=== PATIENT | male | born 1945 | race Two or more races ===

== ENCOUNTER 2024-05-26 16:40 | Inpatient (IN) | payer OTHER, MEDICAID ==
[~2024-05-26] VITALS: Ht 177.8 cm; Wt 60.7 kg
[2024-05-26 19:40] VITALS: BP 136/66; PULSE 122; RESP 30; TEMP 98.2; O2SAT 86
[2024-05-26 20:00] VITALS: BP 136/66; PULSE 122; RESP 26; TEMP 98.2; O2SAT 93
[2024-05-26] MEDS ORDERED: ONDANSETRON HCL 4 MG/2 ML VIAL IV PRN (22:30)
[2024-05-26] MEDS ORDERED: MORPHINE SULFATE INJ 2 MG/ml SYRG IV PRN ×2 (22:30)
[2024-05-26] MEDS ORDERED: NITROGLYCERIN 0.4 MG SL TAB SL PRN (22:30)
[2024-05-26] MEDS ORDERED: HYDROcodone-ACET 5/325MG TAB PO PRN (22:30)
[2024-05-26] MEDS ORDERED: VANCOMYCIN PER PHARMACY 0 MG IV SCH (22:45)
--- NOTE | 2024-05-26 22:45 | DVHINCON2 ---
Date of service: May 26, [address] Wolf Reason for Consultation ALOC History of Present Illness Mr Vallejo is a 78 years old gentleman with a history of diabetes, congestive heart failure, chronic kidney failure, left foot osteomyelitis, status post right BKA, the patient was brought to the [facility] on 05/18/2024 with a chief company of altered mental status, the patient was t ransferred to [facility] on 06/12/2024, likely for for care of his left foot osteomyelitis. At this time, he is awake, not oriented at all, he might have ongoing visual hallucination because he is having the arms in the air talking to himself [phone] no other [facility] UDS, 05/18/2024: Negative Urinalysis, 05/18/2024: Urine leukocyte esterase: 2+ WBC/HB/PLT/MCV, 05/18/24: 11.9/9.6/210/96.2 Potassium, 05/18/2024: 5.1 BUN/CR, 05/18/2024: 65/2.19 GFR, 05/18/2024: 31.17 Liver. function tests, 12/17/2023: Unremarkable CT head, 05/18/2024: Hypodense area involving the right high convexity frontal lobe and bilateral cerebellum which may represent area of in fact of unknown chronicity I do not see imaging reports of the left foot Past Medical History Diabetes, congestive heart failure, chronic kidney failure, left foot osteomyelitis, Past Surgical History Left 5th toe amputation, right BKA Family History Unobtainable Social History Unobtainable Current Medications Current Medications Medications (Trade) Dose Ordered Sig/Eagle Route PRN Reason Start Time Stop Time Status Last Admin Sodium Chloride (Saline Lock Ns) 10 ml Q8HR IV 05/27/24 06:00 UNV Acetaminophen/ Hydrocodone Bitart ([place] 5/325MG Tab) 1 tab Q4HP PRN PO MODERATE PAIN (4-6 PAIN SCALE) 05/26/24 22:30 UNV Ondansetron HCl (Zofran) 4 mg Q4HP PRN IV NAUSEA / VOMITING 05/26/24 22:30 UNV Acetaminophen (Tylenol Tablet) 650 mg Q6HP PRN PO PAIN SCALE 1-3 OR TEMP>100.4 05/26/24 22:30 UNV Morphine Sulfate 2 mg Q4HPRN PRN IV SEVERE PAIN (7-10 PAIN SCALE) 05/26/24 22:30 UNV Nitroglycerin (Ntrostat Sublingual) 0.4 mg Q5MINP PRN SL FOR CHEST PAIN 05/26/24 22:30 UNV Morphine Sulfate 2 mg Q30M PRN IV FOR CHEST PAIN 05/26/24 22:30 UNV Review of Systems Unobtainable Physical Exam GENERAL EXAM: General: the patient is well developed and nourished. No acute distress. HEENT: Normocephalic, neck is supple, no carotid bruits. No mass. RESPIRATORY: Normal respiratory effort with symmetrical lung expansion. Lungs clear to auscultation. CARDIOVASCULAR: Regular rate and rhythm with no murmurs. S1, S2. ABDOMEN: Soft, nontender, normal bowel sound Status post right BKA NEUROLOGICAL: MENTAL STATUS: HPI SPEECH, LANGUAGE, HIGHER CORTICAL FUNCTION: no aphasia or dysathria. CRANIAL NERVES: #2: Intact visual harrison to confrontation. #3,4,6: Pupils are equal, round and reactive. EOMs full and conjugate. No nystagmus. #5: Facial sensation intact in all three divisions bilaterally. Mandibular strength intact. #7: Facial muscles symmetrical and strength intact. #8: Hearing grossly normal to voice. #9,10: Deferred. #11: Deferred, but looks fine #12: Tongue midline. No fasciculations or atrophy. SENSATION: Sensation to touch and pinprick is normal. MOTOR: Normal tone in the upper and lower extremity. Normal muscle bulk. No fasciculations. No abnormal movements or posturing. Muscle strength of the major groups in the upper extremities is 5/5. Muscle strength of the major groups in the lower extremities is 5/5. REFLEXES: Deep tendon reflexes are symmetrical. No pathological reflexes. CEREBELLAR/COORDINATION: Deferred GAIT/STATION: deferred. Assessment Metabolic encephalopathy secondary to osteomyelitis Multiple strokes per CT brain scan Left foot osteomyelitis Plan/Recommendation Monitoring Supportive treatment Telemetry Lipitor profile GABBIE Carotid Doppler CT to the left foot MRI brain Aspirin 81 mg daily Lipitor 40 mg daily for now Haldol 2.5 mg IM Q 8 hours p.r.n. for agitation Podiatry consultation Progress: Poor This is a difficult a long consultation. I have discussed with his nurseblood This medical document was created using an electronic medical record system with [employer] dictation system. Although this document has been carefully reviewed, there may still be some phonetic and typographical errors. These areas are purely typographical due to imperfections of the software programs, and do not reflect any compromise in the patient's medical care. Plan discussed with: Other DALTON HARRISON MD May 26, 2024 22:45
--- NOTE | 2024-05-26 22:49 | DVHHPRES ---
History of Present Illness Resident Creating Document: ESTER CLARK RESIDENT History of Present Illness Yoni Tuttle, a 78-year-old male with a past medical history of congestive heart failure, diabetes, CKD, recurrent urinary tract infections, and right BKA, presents with a chief complaint of metabolic encephalopathy. The patient was transferred from [facility] and is currently experiencing an altered mental state. patient was brought to the [facility] on 05/18/2024 with a chief company of altered mental status, the patient was transferred to [facility] on 06/12/2024, likely for care of his left foot osteomyelitis. He is not talking and has an A&O X1. Pt has a history of left foot osteomyelitis, which was diagnosed at [facility]. The patient reports low oxygen saturation levels, ranging from 84 to 88, and is now on 3 liters of oxygen. He is breathing through his mouth, necessitating supp lemental oxygen through a simple mask. Past Medical History congestive heart failure, diabetes, CKD, recurrent urinary tract infections, and right BKA, Past Surgical History Rt BKA Review of Systems Review of Systems Unable to obtain as patient is altered mental status Allergies: Coded Allergies: NO KNOWN ALLERGIES (Unverified , 05/27/24) Medications Current Medications Medications Dose Ordered Sig/Eagle Route Start Time Stop Time Status Last Admin Dose Admin Sodium Chloride 10 ml Q8HR IV 05/27/24 06:00 UNV Acetaminophen/ Hydrocodone Bitart 1 tab Q4HP PRN PO 05/26/24 22:30 UNV Ondansetron HCl 4 mg Q4HP PRN IV 05/26/24 22:30 UNV Acetaminophen 650 mg Q6HP PRN PO 05/26/24 22:30 UNV Morphine Sulfate 2 mg Q4HPRN PRN IV 05/26/24 22:30 UNV Nitroglycerin 0.4 mg Q5MINP PRN SL 05/26/24 22:30 UNV Morphine Sulfate 2 mg Q30M PRN IV 05/26/24 22:30 UNV Cefepime HCl 50 ml @ 12.5 mls/hr DAILY IV 05/27/24 10:00 UNV Vancomycin HCl 0 ml @ 0 mls/hr UD IV 05/26/24 22:45 UNV Sodium Chloride 1,000 ml @ 60 mls/hr [id number] IV 05/26/24 22:45 UNV Enoxaparin Sodium 30 mg DAILY SC 05/27/24 10:00 UNV Atorvastatin Calcium 10 mg HS PO 05/27/24 22:00 UNV Exam Vital Signs - Vital Signs - Oxygen saturation: 84-88% - Patient on 3 liters of oxygen via simple mask Exam Physical Examination: GENERAL: Patient is restless and on supplemental oxygen. HEENT: EOMI, Moist mucous membranes. No scleral icterus. No cervical lymphadenopathy. LUNGS: Clear to auscultation bilaterally. No accessory muscle use. On supplemental oxygen CARDIOVASCULAR: Regular rate and rhythm. No murmur. No JVD. ABDOMEN: Soft, nontender and nondistended. No palpable masses. EXTREMITIES: No edema. Right leg below-knee amputation (BKA), left foot nonhealing ulcer SKIN: No rashes or lesions. Warm. NEUROLOGIC: Patient is confused, Alert and oriented X1 Assessment/Plan Assessment/Plan Assessment and Plan: # Metabolic encephalopathy secondary to possible osteomyelitis # Multiple strokes per CT brain scan - Continue monitoring mental status and neurological function - Neurology consult - Patient is confused, A&O x1 # Left foot osteomyelitis: - Continue cefepime 1 gram daily and vancomycin as per pharmacy - Ordered left foot CT - Podiatry consult for further evaluation and management - Diagnosed at [facility] # Acute respiratory failure: - Maintain patient on 3 liters of oxygen via simple mask - Ordered chest x-ray for further evaluation - O2 saturation was low (84-88%) # Congestive heart failure diastolic vs. systolic: - Will start Lasix 20 mg I/V after lab results and Chest xray - No edema noted - Ordered BNP and chest x-ray for further evaluation # Chronic kidney disease: - Monitor renal function and electrolytes - Follow up to evaluate for acute kidney injury # Diabetes mellitus type 2: - Manage with sliding scale insulin as needed - Monitor blood glucose levels regularly DVT prophylaxis: Lovenox SC 30 mg daily Goal of care discussed with RN, called patient's next of kin, did not receive the call, left voice message. Discussed with Dr. Rojas Plan discussed with: Other (RN) My Orders Orders - ESTER CLARK RESIDENT Procedure Category Date Status Time Admit ADMIT 05/26/24 Transmitted 22:22 Allergies LISANDRO 05/26/24 In Process 22:22 Code Status CODE 05/26/24 Transmitted 22:22 Sodium Chloride Lock PHA 05/27/24 Logged (Saline Lock Ns) 06:00 Hydrocodone-Acet PHA 05/26/24 Logged 5/325mg Tab ([place] 22:30 Ondansetron Hcl PHA 05/26/24 Logged (Zofran) 22:30 Complete Blood Count LAB 05/27/24 Verified 04:00 Comprehensive LAB 05/27/24 Verified Metabolic Panel 04:00 Npo (Nothing By DIET 05/27/24 Transmitted Mouth) Diet Breakfast Acetaminophen Tablet PHA 05/26/24 Logged (Tylenol Tablet) 22:30 Morphine Sulfate PHA 05/26/24 Logged Injection 22:30 Nitroglycerin PHA 05/26/24 Logged Sublingual (Ntrostat 22:30 Morphine Sulfate PHA 05/26/24 Logged Injection 22:30 Oxygen By Nasal RT 05/26/24 Transmitted Cannula 22:22 Stat Ekg For Chest [facility] 05/26/24 In Process Pain 22:22 Notify Md Of Changes [facility] 05/26/24 In Process From Base 22:22 Carbon Brushes Assembler For [facility] 05/26/24 In Process 24 Hours 22:22 Emergency Dysrhythmia [facility] 05/26/24 In Process Protocol 22:22 Rhythm Strips Once [facility] 05/26/24 In Process Every Shift 22:22 Urinalysis LAB 05/26/24 Uncollected 22:22 Vitamin D, 25-Hydroxy LAB 05/26/24 Logged 22:22 Vitamin B12 LAB 05/26/24 Logged 22:22 Lipid Panel LAB 05/26/24 Logged 22:22 Hemoglobin A1c LAB 05/26/24 Logged 22:22 Drug Screen LAB 05/26/24 Logged 22:22 Thyroid Stimulating LAB 05/26/24 Logged Hormone 22:22 PTPTT LAB 05/26/24 Logged 22:22 Complete Blood Count LAB 05/26/24 Logged 22:22 Comprehensive LAB 05/26/24 Logged Metabolic Panel 22:22 * Neurology Consult CONS 05/26/24 Transmitted 22:28 Cefepime 1gm/ 50ml PHA 05/27/24 Logged (Maxipime 1gm/50ml) 10:00 Vancomycin Per PHA 05/26/24 Logged Pharmacy 22:45 *Podiatry Consult CONS 05/26/24 Transmitted Musson(Dvmg) 22:32 Sodium Chloride 0.9% PHA 05/26/24 Logged 22:45 Enoxaparin Sodium PHA 05/27/24 Logged (Lovenox) 10:00 Atorvastatin (Lipitor) PHA 05/27/24 Logged 22:00 Chest Portable XY 05/26/24 Logged 22:32 Date of Service: May 26, 2024 Billing Provider: SANJAY ROJAS MD Common Visit Codes: [id number] INP/OBS CARE (HIGH) Secondary Visit Codes: [id number] CARE PLAN 30 MINUTES ESTER CLARK RESIDENT May 26, 2024 22:49 SANJAY ROJAS MD May 27, 2024 13:38
[2024-05-26] MEDS: ATORVASTATIN 20 MG TAB PO SCH (23:15)
[2024-05-26 23:27] LABS: Basophils # (auto) 0.1 10 ^3/uL (0-0.2); Basophils % (auto) 1.1 % (0.0-2.0); Eosinophils # (auto) 0 10 ^3/uL (0-0.8); Eosinophils % (auto) 0.2 % (0.0-7.0); Hematocrit 32.7 % (41.0-53.0); Hemoglobin 10.4 g/dL (13.5-17.5); Lymphocytes # (auto) 0.3 10 ^3/uL (0.4-5.4); Lymphocytes % (auto) 2.4 % (10.0-50.0); Mean Corpuscular Hemoglobin 30.1 pg (28.0-32.0); Mean Corpuscular Hgb Conc. 31.9 g/dL (32.0-36.0); Mean Corpuscular Volume 94.3 fL (80.0-100.0); Monocytes # (auto) 0.5 10 ^3/uL (0-1.3); Monocytes % (auto) 4.9 % (0.0-12.0); Neutrophils # (auto) 9.7 10 ^3/uL (1.6-8.6); Neutrophils % (auto) 91.4 % (37.0-80.0); Nucleated Red Blood Cells % 0.1 %; Platelet Count (auto) 234 10^3/uL (140-450); Red Blood Cells 3.47 10^6/uL (4.5-5.90); Red Cell Distribution Width 15.2 % (11.8-14.3); White Blood Cell 10.6 10^3/uL (4.4-10.8)
[2024-05-26 23:42] LABS: Alanine Aminotransferase 22 U/L (7-40); Albumin 3.4 g/dL (3.2-4.8); Alkaline Phosphatase 85 U/L (46-116); Anion Gap 13 (5-15); Aspartate Aminotransferase 18 U/L (13-40); BUN/Creatinine Ratio 17.5 (10.0-20.0); Blood Urea Nitrogen 50 mg/dL (9-23); Calcium 8.7 mg/dL (8.7-10.4); Carbon Dioxide 12 mmol/L (20-31); Chloride 115 mmol/L (98-107); Glucose 258 mg/dL (74-106); LDL Cholesterol 46 mg/dL (< 100); Potassium 5.1 mmol/L (3.5-5.1); Sodium 140 mmol/L (136-145); Triglycerides 129 mg/dL (< 150)
[2024-05-26 23:43] LABS: Bilirubin, Total 0.3 mg/dL (0.2-1.0); Cholesterol 102 mg/dL (< 200); HDL Cholesterol 32 mg/dL (40-59); Total Protein 6.9 g/dL (5.7-8.2)
[2024-05-26 23:47] LABS: INR 1.13 (0.9-1.15); Partial Thromboplastin Time 24.5 SEC (24.5-34.5); Prothrombin Time 11.9 sec (9.3-11.8)
[2024-05-27] VITALS (10 sets, daily range): BP systolic 97–141; BP diastolic 45–77; PULSE 81–124; RESP 18–26; TEMP 97.8–98.6; O2SAT 86–97
[2024-05-27] MEDS ORDERED: DEXTROSE (50%) 50ML SYRG IV PRN
[2024-05-27 00:22] LABS: Folate (Folic Acid) 28.3 ng/mL (>5.38)
--- NOTE | 2024-05-27 02:16 | DVH ---
US CAROTID DOPPLER CLINICAL INDICATION: cva TECHNIQUE: Multiple grayscale, color Doppler and spectral Doppler ultrasound images were obtained thr oughout both carotid systems. COMPARISON: None FINDINGS: RIGHT: Distal ICA is not visualized CCA PSV: 88 cm/s ECA PSV: 382 cm/s ICA PSV: 180 cm/s ICA EDV: 40 cm/s ICA/CCA Ratio: 2 Vertebral artery: Patent, antegrade flow. Grayscale images demonstrate calcified atherosclerotic plaque in the carotid bifurcation, internal ca rotid artery, and visualized external carotid artery. The distal internal carotid artery was not visu alized LEFT: CCA PSV: 59 cm/s ECA PSV: Not visualized ICA PSV: 96 cm/s ICA EDV: 17 cm/s ICA/CCA Ratio: 1.6 Vertebral artery: Not visualized Grayscale images demonstrate mild atherosclerotic plaque in the proximal internal carotid artery . Sp ectral analysis demonstrates no hemodynamically significant CCA or ICA stenosis. IMPRESSION: 1. There is 50-69% stenosis of the right proximal ICA by atherosclerotic plaque. 2. Greater than 70% stenosis of the right external carotid artery by atherosclerotic plaque. 3. No significant left common carotid or ICA stenosis
[2024-05-27] MEDS ORDERED: HYDROmorphone HCL 2 MG/ML VL/or syr IV PRN (04:30)
[2024-05-27 05:58] LABS: Urine Bacteria None Seen /hpf (None Seen)
[2024-05-27] MEDS: SODIUM CHLORIDE 0.9% 1,000 ML IV SCH (06:16)
[2024-05-27] MEDS: SODIUM CHLOR 0.9% PF (SALINE LOCK) 10ML VIAL/SYR IV SCH (06:16)
[2024-05-27 06:38] LABS: Amphetamine Screen, Urine Neg (NEGATIVE); Barbiturate Scree,Urine Neg (NEGATIVE); Benzodiazephine Screen, Urine Neg (NEGATIVE); Cannabinoid Screen, Urine Neg (NEGATIVE); Cocaine Screen, Urine Neg (NEGATIVE); Opiate Scree,Urine Neg (NEGATIVE); Phencyclidine Screen, Urine Neg (NEGATIVE)
[2024-05-27 06:49] LABS: Urine Blood 3+ /uL (Negative); Urine Clarity Ex.Turbid (Clear); Urine Color Light-Red (Yellow); Urine Protein, UAD 2+ (Negative); Urine Specific Gravity 1.013 (1.001-1.035); Urine Urobilinogen Normal (Negative); Urine WBC 306 /hpf (0 - 3); Urine pH 5.5 (5.0-9.0)
[2024-05-27] MEDS: InsuLIN REG 1unit/0.01ml Soln (100units/ml) SC SCH (06:57)
[2024-05-27] MEDS: ACCU-CHEK COMFORT CURVE STRIP VI SCH (07:01)
--- NOTE | 2024-05-27 07:02 | DVH ---
CHEST RADIOGRAPH Indication:SOB Technique: Single frontal view of the chest was obtained Comparison: None FINDINGS: Lines and Tubes: None Lungs: Extensive pulmonary edema. Pleura: No effusion. No pneumothorax. Cardiomediastinal contours: Unremarkable Bones: No acute osseous abnormality. IMPRESSION: Extensive pulmonary edema. Atypical viral pneumonia can not be excluded.
[2024-05-27 07:14] LABS: Alanine Aminotransferase 18 U/L (7-40); Albumin 3.2 g/dL (3.2-4.8); Alkaline Phosphatase 74 U/L (46-116); Anion Gap 14 (5-15); Aspartate Aminotransferase 27 U/L (13-40); BUN/Creatinine Ratio 20.1 (10.0-20.0); Bilirubin, Total 0.3 mg/dL (0.2-1.0); Blood Urea Nitrogen 57 mg/dL (9-23); Calcium 8.6 mg/dL (8.7-10.4); Carbon Dioxide 13 mmol/L (20-31); Chloride 114 mmol/L (98-107); Glucose 221 mg/dL (74-106); Potassium 5.1 mmol/L (3.5-5.1); Sodium 141 mmol/L (136-145); Total Protein 6.2 g/dL (5.7-8.2)
[2024-05-27 07:16] LABS: Basophils # (auto) 0 10 ^3/uL (0-0.2); Basophils % (auto) 0.2 % (0.0-2.0); Eosinophils # (auto) 0 10 ^3/uL (0-0.8); Hematocrit 30.1 % (41.0-53.0); Hemoglobin 9.6 g/dL (13.5-17.5); Lymphocytes # (auto) 0.3 10 ^3/uL (0.4-5.4); Lymphocytes % (auto) 2.9 % (10.0-50.0); Mean Corpuscular Hgb Conc. 31.8 g/dL (32.0-36.0); Mean Corpuscular Volume 94.3 fL (80.0-100.0); Monocytes # (auto) 0.6 10 ^3/uL (0-1.3); Monocytes % (auto) 6.1 % (0.0-12.0); Neutrophils # (auto) 9.6 10 ^3/uL (1.6-8.6); Neutrophils % (auto) 90.8 % (37.0-80.0); Platelet Count (auto) 180 10^3/uL (140-450); Red Blood Cells 3.19 10^6/uL (4.5-5.90); Red Cell Distribution Width 15.1 % (11.8-14.3); White Blood Cell 10.5 10^3/uL (4.4-10.8)
[2024-05-27] MEDS: VANCOMYCIN 1.25GM/250ML 250 ML IV ONE (07:43)
--- NOTE | 2024-05-27 08:40 | DVHPNRES ---
Progress Note Date Seen: May 27, 2024 Resident Creating Document: HONG REBOLLAR RESIDENT Has the PT tested + for MRSA If YES, has PT been informed?: No Medical Necessity Reason Pt with a Central, PICC or Fol: Yes The following are medically ne: Wilson Catheter Medical Necessity Reason Midline, peripheral vascular access Subjective Review of Systems Saw the patient at bedside, several times throughout the day. Patient remained combative, agitated, disoriented, can not make meaningful conversation. Mittens in hand. Patient reports: No new complaints Changes from previous H/P or p: No Changes Review of Systems: HEENT:Normal (Oral mucosa dry), CVS:Normal, RESPIRATORY:Abnormal (On 4-6 L of nasal cannula oxygen, basal rales and crackles, diminished air entry.), GI:Normal (BS positive, negative for tenderness, guarding), :Normal (On Wilson's catheter), MSK:Abnormal (Right BKA clean stump noted. Left foot wound noted dressing clean.), NEURO:Abnormal (Alert, patient is disoriented most of the times patient could not answer any questions. In the afternoon patient is more awake GCS 10. Still not able to protect airways. Remained NPO. Continuous rehabilitation.) Objective vital signs Vital Sign Date Time Temp Pulse Resp B/P (MAP) Pulse Ox O2 Delivery O2 Flow Rate FiO2 05/27/24 01:00 98.3 124 24 118/53 (74) 92 98.3 05/27/24 00:58 Nasal Cannula* 3 32 Total Intake and Output 05/26/24 05/26/24 05/27/24 14:59 22:59 06:59 Output Total 1500 ml Balance -1500 ml medications Current Medications Medications Dose Ordered Sig/Eagle Route Start Time Stop Time Status Last Admin Dose Admin Sodium Chloride 10 ml Q8HR IV 05/27/24 06:00 05/27/24 06:16 10 ML Acetaminophen/ Hydrocodone Bitart 1 tab Q4HP PRN PO 05/26/24 22:30 Ondansetron HCl 4 mg Q4HP PRN IV 05/26/24 22:30 Acetaminophen 650 mg Q6HP PRN PO 05/26/24 22:30 Nitroglycerin 0.4 mg Q5MINP PRN SL 05/26/24 22:30 Morphine Sulfate 2 mg Q30M PRN IV 05/26/24 22:30 Cefepime HCl 50 ml @ 12.5 mls/hr DAILY IV 05/27/24 10:00 Vancomycin HCl 0 ml @ 0 mls/hr UD IV 05/26/24 22:45 UNV Enoxaparin Sodium 30 mg DAILY SC 05/27/24 10:00 Atorvastatin Calcium 40 mg HS PO 05/26/24 23:15 Lorazepam 1 mg ONCE PRN IV 05/26/24 23:15 Aspirin 81 mg DAILY PO 05/27/24 10:00 Haloperidol Lactate 2.5 mg Q8HP PRN IM 05/26/24 23:15 Diagnostic Test (Pha) 1 strip ACHS 05/27/24 07:00 05/27/24 07:01 1 STRIP Insulin Human Regular ACHS SC 05/27/24 07:00 05/27/24 06:57 4 UNITS Dextrose 50 ml UD PRN IV 05/27/24 00:00 Hydromorphone HCl 2 mg Q4HP PRN IV 05/27/24 04:30 Furosemide 40 mg DAILY IV 05/27/24 10:00 Examination: GENERAL:Abnormal (Overlook 6, in distress, disoriented occasionally opening eyes), HEENT:Normal, NECK:Normal (JVD known elevated), LUNGS:Abnormal (On nasal cannula oxygen, diminished bilateral air entry, crackles), CVS:Normal, ABDOMEN:Normal, MSK:Abnormal (Right below-knee amputation, left foot wound), SKIN:Abnormal (Wound), NEURO:Abnormal (Opens eyes to voice, to pain stimulus patient is reactive, incoherent talk ? Aphasia. Can not complete full neurological assessment as patient is not able to follow instructions.) laboratory and microbiology Laboratory Tests 05/27/24 05:59 Test 05/27/24 05:59 Range/Units Serum Glucose 221 H 74-106 mg/dL Labs and/or images reviewed: Labs reviewed by me, Image(s) reviewed by me Problem List/Assessment/Plan Problem List/Assessment/Plan Hospital Course: Mr. Vallejo, a 78-year-old male with a history of heart failure with a reduced ejection fraction of 25%, uncontrolled diabetes mellitus, CKD, recurrent UTIs, recurrent skin and soft tissue infection and right BKA, presents with metabolic encephalopathy and altered mental status, requiring supplemental oxygen and care for left foot osteomyelitis. Initially patient was admitted in [facility] initially 05/18/2024, was found for sepsis and initial treatment was done with IV antibiotics and patient was transferred to [facility] for optimum Care and close follow up with the Podiatry team. # metabolic vs toxic encephalopathy vs mixed: Alert but oriented, over the day patient was mostly sedated, agitated and combative. likely secondary due to infection, mixed with delirium and multi system disease. Continue as needed Haldol, mittens, sitter, recurrent reorientation and conservative measures. This is p.m. patient's GCS around 10 but still has a very high chance of aspiration. Continue delirium precaution aspiration precaution. Patient was on cefepime and vancomycin in previous hospitalization. Can not rule out toxic effects of cefepime. We will change to meropenem and vancomycin for now. # Multiple strokes prior CT brain scan: Prior stroke history, hypodense areas involving right high convexity frontal lobe and bilateral cerebellum with infarct of unknown chronicity. Patient is confused alert but oriented to self only. Difficult to assess neurological function. Vitals more or less stable. Appreciate Neurology input. When possible MRI with appropriate IV for further evaluation. # possible aspiration pneumonia: Patient remained altered mental status for prolonged time,un attended, remains by himself at home, possible aspiration, basal crackles, rales suggestive yet not conclusive. Close follow up aspiration precaution, head and 45 degree elevation. Secretion management And interval follow up. # Acute hypoxic respiratory failure , likely due to above , complicated with congestive heart failure: TSH WNL, negative lactate, BNP of 1347, elevated, although fluid status intravascularly dry needing IV fluid. status post IV Lasix. Could be emerging pulmonary edema likely due to low urine output. Close cautious fluid management. Sputum culture, COVID, flu pending. # right external carotid artery greater than 70% stenosis: All the clinical significance undetermined. Collaterals intact. # MARYANA due to VMN: developing acute renal failure elevating creatinine: BUN rising, check input output closely. Declining urinary function. We will do nephrology consult as needed. # questionable CKD: stage undetermined, given longstanding diabetes. No known baseline. # Left foot osteomyelitis with overlying skin and soft tissue infection: imaging, CT, previous MRI and imaging detailed evaluation noted high possibility of osteomyelitis, podiatry on board: Appreciate input, we will further input with stabilization of patient's vitals we will consider early source control with pending amputation when possible. Extremity arterial study satisfactory. For now we will continue antibiotics, pending wound culture. Previously known left 5th toe amputation due to same. # Likely UTI, could be hospital-acquired, From recent hospitalization: leukocyte esterase 3+, recent hospitalization, RBC 2720, WBC 306, blood 3+ negative nitrites: Urine culture to follow , continue broad-spectrum antibiotics. # Sepsis secondary due to above: elevated heart rate, elevated white count with predominant neutrophilia, Along with source of infection likely pointing towards sepsis. Careful consideration of sepsis dose bolus along with careful fluid management. Drawn antibiotics to continue. Blood culture pending. Pending source control as soon as possible. MRSA screen negative. Lactic negative. # anemia of chronic disease: Likely due to CKD/multifactorial, poor nutrition: Daily CBC, transfusion threshold 7. # Diabetes mellitus well controlled, 6.4 HbA1c: patient on NPO, target BG 140- 180 mg per dL. # DVT prophylaxis: significant Britany score, subcutaneous Lovenox to continue for now for prophylactic dose. close follow up with CBC and platelet count. # Diet: NPO for now, aspiration precautions Case discussed with Dr. Nascimento. Barriers to discharge: Patient lives by himself, medically not stable. Aggressive management needed. Poor prognosis due to multiorgan failure with advanced age and comparatively poor cardiac reserve. If patient continues to decline or unable to improve, we will consider further goals of care discussion with the next kin. Code status: Power of securities attorney, next kin Madhu Wright discussed over phone . Complex patient care discussion needed total 39 minutes. so far patient is modified code status with DNR/do not resuscitate along with intubation trial. Critical patient critical care plan upgraded to TIGRE status. Detailed sign-out given to overnight on-call senior resident and nursing team. Plan discussed with: Patient, Other (Next kin, who mentioned he can not visit the patient but can talk over phone as he does not have money for transport. Currently he is visiting [place] but [place] Laboratory Results Laboratory Tests 05/27/24 05:59 Chemistry Test 05/26/24 23:15 05/27/24 05:59 Albumin 3.4 g/dL (3.2-4.8) 3.2 g/dL (3.2-4.8) Calcium Level 8.7 mg/dL (8.7-10.4) 8.6 mg/dL (8.7-10.4) L Total Protein 6.9 g/dL (5.7-8.2) 6.2 g/dL (5.7-8.2) Coagulation Test 05/26/24 23:15 Prothrombin Time 11.9 sec (9.3-11.8) H Prothrombin Time INR 1.13 (0.9-1.15) Activated Partial Thromboplast Time 24.5 SEC (24.5-34.5) Lipid panel Test 05/26/24 23:15 Cholesterol Level 102 mg/dL (< 200) HDL Cholesterol 32 mg/dL (40-59) L Triglycerides Level 129 mg/dL (< 150) Cardiac Markers Test 05/26/24 23:15 B-Type Natriuretic Peptide 1347.78 pg/mL (0-100) LFT Test 05/26/24 23:15 05/27/24 05:59 Alanine Aminotransferase (ALT) 22 U/L (7-40) 18 U/L (7-40) Alkaline Phosphatase 85 U/L (46-116) 74 U/L (46-116) Aspartate Amino Transferase (AST) 18 U/L (13-40) 27 U/L (13-40) Total Bilirubin 0.3 mg/dL (0.2-1.0) 0.3 mg/dL (0.2-1.0) HgA1c, TSH Test 05/26/24 23:15 Hemoglobin A1c 6.4 % A1C (<5.7) H Thyroid Stimulating Hormone (TSH) 1.70 uIU/mL (0.55-4.78) Urinalysis Test 05/27/24 05:00 Urine Color Light-red (Yellow) Urine Clarity Ex.turbid (Clear) Urine pH 5.5 (5.0-9.0) Urine Specific [place] 1.013 (1.001-1.035) Urine Protein 2+ (Negative) H Urine Ketones Trace (Negative) Urine Blood 3+ /uL (Negative) H Urine Nitrite Negative (Negative) Urine Bilirubin Negative (Negative) Urine Urobilinogen Normal mg/dL (Negative) Urine Leukocyte Esterase 3+ /uL (Negative) Urine RBC 2720 /hpf (0 - 3) Urine WBC 306 /hpf (0 - 3) Urine Squamous Epithelial Cells None seen /hpf (<5) Urine Bacteria None seen /hpf (None Seen) Urine Glucose 1+ mg/dL (Normal) H Date of Service: May 27, 2024 Billing Provider: CHARITY NASCIMENTO MD Common Visit Codes: PROCEDURE ONLY Coding Comment Comment Attending attestation Please see my separate note for complete attestation HONG REBOLLAR RESIDENT May 27, 2024 08:40 CHARITY NASCIMENTO MD May 27, 2024 20:59
[2024-05-27] MEDS: HALOPERIDOL LACTATE 5 MG/ML INJ VIAL IM PRN (09:40)
[2024-05-27] MEDS: FUROSEMIDE 40 MG/4 ML VIAL IV SCH (09:40)
[2024-05-27] MEDS: ENOXAPARIN SOD 30 MG/0.3 ML SYRINGE SC SCH (09:41)
[2024-05-27] MEDS: ASPirin 81 mg TAB PO SCH (10:00)
[2024-05-27] MEDS ORDERED: CEFEPIME 1GM/ 50ML 50 ML IV SCH (10:00)
--- NOTE | 2024-05-27 10:44 | DVHPN2 ---
Progress Note - Dictate Date Seen: May 27, 2024 Medical Necessity Reason Pt with a Central, PICC or Fol: Yes The following are medically ne: Wilson Catheter Subjective Mr Vallejo is a 78 years old gentleman with a history of diabetes, congestive heart failure, chronic kidney failure, left foot osteomyelitis, status post right BKA, the patient was brought to the [facility] on 05/18/2024 with a chief company of altered mental status, the patient was transferred to [facility] on 06/12/2024, likely for for care of his left foot osteomyelitis. I have seen examined the patient, talked to his nurse and sitter, the patient is sedated, but still awake, he still talk to himself a little bit, he moves the arms and leg intermittently, he can not tell his name [facility] [place]DS, 05/18/2024: Negative Urinalysis, 05/18/2024: Urine leukocyte esterase: 2+ WBC/HB/PLT/MCV, 05/18/24: 11.9/9.6/210/96.2 Potassium, 05/18/2024: 5.1 BUN/CR, 05/18/2024: 65/2.19 GFR, 05/18/2024: 31.17 Liver. function tests, 12/17/2023: Unremarkable CT head, 05/18/2024: Hypodense area involving the right high convexity frontal lobe and bilateral cerebellum which may represent area of in fact of unknown chronicity I do not see imaging reports of the left foot Urinalysis, 05/27/2024: WBC: 306, urine leukocyte esterase: 3+ UDS, 05/27/2024: Negative WBC/HB/PLT/MCV, 05/27/2024: 10.5/9.6/180/94.3 BUN/CR, 05/27/2024: 57/2.83 HCO3, 05/27/2024: 13 Liver function tests, 05/27/2024: Unremarkable TG/HDL/LDL/HDL, 05/26/2024: 109/102/46/32 Vitamin B12, 05/2024: 1314 Folic acid, 05/2024: 28.3 TSH, 05/2024: 1.7 Carotid Doppler, 05/27/2024: 1. There is 50-69% stenosis of the right proximal ICA by atherosclerotic plaque. 2. Greater than 70% stenosis of the right external carotid artery by atherosclerotic plaque. 3. No significant left common carotid or ICA stenosis vital signs Vital Sign Date Time Temp Pulse Resp B/P (MAP) Pulse Ox O2 Delivery O2 Flow Rate FiO2 05/27/24 09:40 107/50 05/27/24 09:00 98.6 115 19 92 98.6 05/27/24 00:58 Nasal Cannula* 3 32 Total Intake and Output 05/26/24 05/26/24 05/27/24 15:00 23:00 07:00 Output Total 1500 ml Balance -1500 ml medications Current Medications Medications Dose Ordered Sig/Eagle Route Start Time Stop Time Status Last Admin Dose Admin Sodium Chloride 10 ml Q8HR IV 05/27/24 06:00 05/27/24 06:16 10 ML Acetaminophen/ Hydrocodone Bitart 1 tab Q4HP PRN PO 05/26/24 22:30 Ondansetron HCl 4 mg Q4HP PRN IV 05/26/24 22:30 Acetaminophen 650 mg Q6HP PRN PO 05/26/24 22:30 Nitroglycerin 0.4 mg Q5MINP PRN SL 05/26/24 22:30 Morphine Sulfate 2 mg Q30M PRN IV 05/26/24 22:30 Cefepime HCl 50 ml @ 12.5 mls/hr DAILY IV 05/27/24 10:00 Vancomycin HCl 0 ml @ 0 mls/hr UD IV 05/26/24 22:45 Enoxaparin Sodium 30 mg DAILY SC 05/27/24 10:00 05/27/24 09:41 30 MG Atorvastatin Calcium 40 mg HS PO 05/26/24 23:15 Lorazepam 1 mg ONCE PRN IV 05/26/24 23:15 Aspirin 81 mg DAILY PO 05/27/24 10:00 Haloperidol Lactate 2.5 mg Q8HP PRN IM 05/26/24 23:15 05/27/24 09:40 2.5 MG Diagnostic Test (Pha) 1 strip ACHS 05/27/24 07:00 05/27/24 07:01 1 STRIP Insulin Human Regular ACHS SC 05/27/24 07:00 05/27/24 06:57 4 UNITS Dextrose 50 ml UD PRN IV 05/27/24 00:00 Hydromorphone HCl 2 mg Q4HP PRN IV 05/27/24 04:30 Furosemide 40 mg DAILY IV 05/27/24 10:00 05/27/24 09:40 40 MG Meropenem 50 ml @ 17 mls/hr Q12HR IV 05/27/24 10:00 objective General: the patient is well developed and nourished. No acute distress. Status post right BKA MENTAL STATUS: Subjective SPEECH, LANGUAGE, HIGHER CORTICAL FUNCTION: no aphasia or dysathria. CRANIAL NERVES: Intact visual harrison to confrontation. Pupils are equal, round and reactive. EOMs full and conjugate. Facial sensation intact in all three divisions bilaterally. Mandibular strength intact. Facial muscles symmetrical and strength intact. SENSATION: Sensation to touch and pinprick is normal. MOTOR: Normal tone in the upper and lower extremity. Normal muscle bulk. No fasciculations. No abnormal movements or posturing. He moves the arms and legs, the muscle power looks normal REFLEXES: Deep tendon reflexes are symmetrical. No pathological reflexes. CEREBELLAR/COORDINATION: Deferred GAIT/STATION: deferred. laboratory and microbiology Laboratory Tests 05/27/24 05:59 Test 05/27/24 05:59 Range/Units Serum Glucose 221 H 74-106 mg/dL Problem List Metabolic encephalopathy secondary to osteomyelitis Multiple strokes per CT brain scan Left foot osteomyelitis Assessment/Plan Monitoring Supportive treatment Telemetry GABBIE CT to the left foot MRI brain Aspirin 81 mg daily Lipitor 10 mg daily for now Haldol 2.5 mg IM Q 8 hours p.r.n. for agitation Podiatry consultation Progress: Poor This is a difficult a long consultation. I have discussed with his nurseblood This medical document was created using an electronic medical record system with [employer] dictation system. Although this document has been carefully reviewed, there may still be some phonetic and typographical errors. These areas are purely typographical due to imperfections of the software programs, and do not reflect any compromise in the patient's medical care. Prognosis poor Plan discussed with: Other Total Time (mins): 35 DALTON AHRRISON MD May 27, 2024 10:44
[2024-05-27] MEDS ORDERED: LORazepam 2MG/ML-1ML VIAL IV PRN (10:45)
[2024-05-27] MEDS: ATORVASTATIN 20 MG TAB PO SCH (10:45)
[2024-05-27 11:18] LABS: Free T4 (Free Thyroxine) 1.2 ng/dL (0.89-1.76)
--- NOTE | 2024-05-27 11:56 | DVHNC2 ---
Date of Service: May 27, 2024 Billing Provider: CHARITY ALBERTO MD Cardiology Common Codes: PROCEDURE ONLY (Cardiac point of care ultrasound [id number]) Coding Comment Comment Point of care ultrasound done today and interpreted by me Cardiac: No pericardial effusion, grossly normal contractility, less than 2cm IVC with more than 50% inspiratory excursion Lung: No B-lines, no pleural effusion, left hepatization of lung with air bronchogram Abdomen: Grossly normal liver, no dilated CBD, gallbladder without stone, bilateral kidney equal in size, flat bladder CHARITY ALBERTO MD May 27, 2024 11:56
--- NOTE | 2024-05-27 12:00 | DVHINCON2 ---
Date Seen: May 27, 2024 Reason for Consultation Left foot wound History of Present Illness Yoni Tuttle, a 78-year-old male with a past medical history of congestive heart failure, diabetes, CKD, recurrent urinary tract infections, and right BKA, presents with a chief complaint of metabolic encephalopathy. The patient was transferred from [facility] and is currently experiencing an altered mental state. patient was brought to the [facility] on 05/18/2024 with a chief company of altered mental status, the patient was transferred to [facility] on 06/12/2024, likely for care of his left foot osteomyelitis. He is not talking and has an A&O X1. Pt has a history of left foot osteomyelitis, which was diagnosed at [facility]. The patient reports low oxygen saturation levels, ranging from 84 to 88, and is now on 3 liters of oxygen. He is breathing through his mouth, necessitating suppleme ntal oxygen through a simple mask. Past Medical History See H&P Past Surgical History See H&P Family History: Patient reports no known family medical history. Allergies: Coded Allergies: NO KNOWN ALLERGIES (Unverified , 05/27/24) Home Meds Unable to Obtain Active Prescriptions or Reported Meds Current Medications Current Medications Medications (Trade) Dose Ordered Sig/Eagle Route PRN Reason Start Time Stop Time Status Last Admin Sodium Chloride (Saline Lock Ns) 10 ml Q8HR IV 05/27/24 06:00 05/27/24 06:16 Acetaminophen/ Hydrocodone Bitart ([place] 5/325MG Tab) 1 tab Q4HP PRN PO MODERATE PAIN (4-6 PAIN SCALE) 05/26/24 22:30 05/27/24 10:47 DC Ondansetron HCl (Zofran) 4 mg Q4HP PRN IV NAUSEA / VOMITING 05/26/24 22:30 05/27/24 10:47 DC Acetaminophen (Tylenol Tablet) 650 mg Q6HP PRN PO PAIN SCALE 1-3 OR TEMP>100.4 05/26/24 22:30 Morphine Sulfate 2 mg Q4HPRN PRN IV SEVERE PAIN (7-10 PAIN SCALE) 05/26/24 22:30 05/27/24 04:18 DC Nitroglycerin (Ntrostat Sublingual) 0.4 mg Q5MINP PRN SL FOR CHEST PAIN 05/26/24 22:30 05/27/24 10:47 DC Morphine Sulfate 2 mg Q30M PRN IV FOR CHEST PAIN 05/26/24 22:30 05/27/24 10:47 DC Cefepime HCl 50 ml @ 12.5 mls/hr DAILY IV 05/27/24 10:00 05/27/24 10:47 DC Vancomycin HCl 0 ml @ 0 mls/hr UD IV 05/26/24 22:45 Sodium Chloride 1,000 ml @ 60 mls/hr [id number] IV 05/26/24 22:45 05/27/24 07:20 DC 05/27/24 06:16 Enoxaparin Sodium (Lovenox) 30 mg DAILY SC 05/27/24 10:00 05/27/24 09:41 Atorvastatin Calcium (Lipitor) 10 mg HS PO 05/27/24 22:00 05/26/24 23:15 DC Atorvastatin Calcium (Lipitor) 40 mg HS PO 05/26/24 23:15 05/27/24 10:44 DC Lorazepam (Ativan Inj) 1 mg ONCE PRN IV MRI 05/26/24 23:15 Aspirin 81 mg DAILY PO 05/27/24 10:00 Haloperidol Lactate (Haldol) 2.5 mg Q8HP PRN IM AGITATION 05/26/24 23:15 05/27/24 10:49 DC 05/27/24 09:40 Diagnostic Test (Pha) (Accu-Chek Comfort Curve T) 1 strip ACHS 05/27/24 07:00 05/27/24 07:01 Insulin Human Regular (InsuLIN R) ACHS SC 05/27/24 07:00 05/27/24 06:57 Dextrose 50 ml UD PRN IV Blood Sugar LESS THAN 60 05/27/24 00:00 Hydromorphone HCl (Dilaudid Injection) 2 mg Q4HP PRN IV SEVERE PAIN (7-10 PAIN SCALE) 05/27/24 04:30 05/27/24 10:47 DC Furosemide (Lasix Injection) 40 mg DAILY IV 05/27/24 10:00 05/27/24 10:47 DC 05/27/24 09:40 Meropenem 50 ml @ 17 mls/hr Q12HR IV 05/27/24 10:00 Lorazepam (Ativan Inj) 1 mg ONCE PRN IV Before CT foot 05/27/24 10:45 05/27/24 10:49 DC Atorvastatin Calcium (Lipitor) 10 mg HS PO 05/27/24 10:45 Vital Signs Vital Signs Date Time Temp Pulse Resp B/P (MAP) Pulse Ox O2 Delivery O2 Flow Rate FiO2 05/27/24 09:40 107/50 05/27/24 09:00 98.6 115 19 92 98.6 05/27/24 00:58 Nasal Cannula* 3 32 Physical Exam DERMATOLOGIC EXAM: - Skin is dry and cool to the touch dry bilaterally. - Nails 1-5 of the bilateral foot are thickened, discolored, dystrophic, and tender to palpate with subungual debris - Hair loss noted to bilateral feet - left lateral foot necrosis with exposed bone and cellulitis VASCULAR EXAM: - DP and PT pulses are nonpalpable bilaterally. - RECORD TESTER is brisk to all digits. - Feet are cool to touch compared to lower legs bilaterally. NEUROLOGIC EXAM: - Normal light touch sensation to the superficial peroneal, deep peroneal, sural, saphenous, and tibial nerve branches. - Protective sensation is diminished as tested with a 5.07 10g [place] bilaterally. MUSCULOSKELETAL EXAM: - No gross deformities - Muscle strength is 5/5 and active motion is pain-free and symmetrical bilaterally - No pain or crepitation with passive range of motion bilaterally to all major pedal joints Labs/Diagnostic Data Labs Test 05/27/24 05:59 05/27/24 05:00 05/26/24 23:15 Range/Units White Blood Count 10.5 4.4-10.8 10^3/uL Red Blood Count 3.19 L 4.5-5.90 10^6/uL Hemoglobin 9.6 L 13.5-17.5 g/dL Hematocrit 30.1 L 41.0-53.0 % Mean Corpuscular Volume 94.3 80.0-100.0 fL Mean Corpuscular Hemoglobin 30.0 28.0-32.0 pg Mean Corpuscular Hemoglobin Concent 31.8 L 32.0-36.0 g/dL Red Cell Distribution Width 15.1 H 11.8-14.3 % Platelet Count 180 140-450 10^3/uL Mean Platelet Volume 11.3 H 6.9-10.8 fL Neutrophils (%) (Auto) 90.8 H 37.0-80.0 % Lymphocytes (%) (Auto) 2.9 L 10.0-50.0 % Monocytes (%) (Auto) 6.1 0.0-12.0 % Eosinophils (%) (Auto) 0.0 0.0-7.0 % Basophils (%) (Auto) 0.2 0.0-2.0 % Neutrophils # (Auto) 9.6 H 1.6-8.6 10 ^3/uL Lymphocytes # (Auto) 0.3 L 0.4-5.4 10 ^3/uL Monocytes # (Auto) 0.6 0-1.3 10 ^3/uL Eosinophils # (Auto) 0 0-0.8 10 ^3/uL Basophils # (Auto) 0 0-0.2 10 ^3/uL Nucleated Red Blood Cells 0.0 % Sodium Level 141 136-145 mmol/L Potassium Level 5.1 3.5-5.1 mmol/L Chloride Level 114 H 98-107 mmol/L Carbon Dioxide Level 13 L 20-31 mmol/L Anion Gap 14 5-15 Blood Urea Nitrogen 57 H 9-23 mg/dL Creatinine 2.83 H 0.700-1.30 mg/dL Glomerular Filtration Rate Calc 22 >90 mL/min BUN/Creatinine Ratio 20.1 H 10.0-20.0 Serum Glucose 221 H 74-106 mg/dL Calcium Level 8.6 L 8.7-10.4 mg/dL Total Bilirubin 0.3 0.2-1.0 mg/dL Aspartate Amino Transferase (AST) 27 13-40 U/L Alanine Aminotransferase (ALT) 18 7-40 U/L Alkaline Phosphatase 74 46-116 U/L Total Protein 6.2 5.7-8.2 g/dL Albumin 3.2 3.2-4.8 g/dL Urine Color Light-red Yellow Urine Clarity Ex.turbid Clear Urine pH 5.5 5.0-9.0 Urine Specific [place] 1.013 1.001-1.035 Urine Protein 2+ H Negative Urine Ketones Trace Negative Urine Blood 3+ H Negative /uL Urine Nitrite Negative Negative Urine Bilirubin Negative Negative Urine Urobilinogen Normal Negative mg/dL Urine Leukocyte Esterase 3+ Negative /uL Urine RBC 2720 0 - 3 /hpf Urine WBC 306 0 - 3 /hpf Urine Squamous Epithelial Cells None seen <5 /hpf Urine Bacteria None seen None Seen /hpf Urine Glucose 1+ H Normal mg/dL Urine Opiates Screen Neg NEGATIVE Urine Fentanyl Screen Neg NEGATIVE Urine Barbiturates Screen Neg NEGATIVE Urine Phencyclidine Screen Neg NEGATIVE Urine Amphetamines Screen Neg NEGATIVE Urine Benzodiazepines Screen Neg NEGATIVE Urine Cocaine Screen Neg NEGATIVE Urine Cannabinoids Screen Neg NEGATIVE Prothrombin Time 11.9 H 9.3-11.8 sec Prothrombin Time INR 1.13 0.9-1.15 Activated Partial Thromboplast Time 24.5 24.5-34.5 SEC Hemoglobin A1c 6.4 H <5.7 % A1C B-Type Natriuretic Peptide 1347.78 0-100 pg/mL Triglycerides Level 129 < 150 mg/dL Cholesterol Level 102 < 200 mg/dL LDL Cholesterol 46 < 100 mg/dL HDL Cholesterol 32 L 40-59 mg/dL Vitamin B12 Level 1314 H 211-911 pg/mL Vitamin D 25-Hydroxy 40.8 30.0-100 ng/mL Folic Acid 28.30 >5.38 ng/mL Thyroid Stimulating Hormone (TSH) 1.70 0.55-4.78 uIU/mL Free Thyroxine (T4) Calculated 1.20 0.89-1.76 ng/dL Problems(with codes): (1) Osteomyelitis of foot (2) Cellulitis and abscess of foot (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 - reviewed x-rays and CT - patient has exposed bone with significant necrosis around it on the left lateral foot - patient will need a TMA - patient will need vascular workup - recommend that we get ABIs - would be willing to perform surgery tomorrow if encephalopathy is caused by the infection - patient NPO at midnight - we will plan for left foot TMA All questions were answered and concerns addressed to the patient's satisfaction. The patient was given the phone number to the clinic and was told how to make contact with the clinic should any concerns or questions arise. Patient understands that if any questions or concerns arise prior to the next appointment, we should be contacted immediately. FOLLOW-UP: Follow inpatient Plan discussed with: Patient Date of Service: May 27, 2024 Billing Provider: GARETT REDDING DPM Common Visit Codes: [id number] INP/OBS CARE (MOD) GARETT REDDING DPM May 27, 2024 12:00
[2024-05-27] MEDS ORDERED: LACTATED RINGER'S 2,200 ML IV ONE (12:45)
[2024-05-27] MEDS: MEROPENEM 500MG IVPB 50 ML IV SCH (13:21)
[2024-05-27] MEDS ORDERED: HALOPERIDOL LACTATE 5 MG/ML INJ VIAL IV PRN (13:30)
[2024-05-27] MEDS: SODIUM CHLORIDE 0.9% 500 ML IV ONE (13:30)
--- NOTE | 2024-05-27 13:38 | DVH ---
INDICATION: Osteomyelitis COMPARISON: None TECHNIQUE: CT of the left foot was performed without contrast. Volume transverse images were obtained and reconstructed in multiple planes using bone and soft tissue algorithms. Radiation Dose Information: CT Dose: CTDI volume is 25.25 mGy. Dose-length product is 979.53 mGy*cm FINDINGS: Post resection of the distal 5th digit from the level of the metatarsal. The alignment is normal. The joint spaces are normal. There is no fracture, dislocation or aggressive osseous lesion. There is no joint effusion. Small volume subcutaneous emphysema and ulceration involving the dorsal / lateral soft tissues of the foot. Diffuse vascular atherosclerotic disease. IMPRESSION: No definite CT findings of acute osteomyelitis. MRI can be obtained to further evaluate if clinicall y indicated. Soft-tissue ulceration and small volume subcutaneous emphysema involving the dorsal/lateral aspect of the foot. Clinical correlation advised. All CT scans at this medical facility are performed using dose modulation techniques as appropriate t o a performed exam including the following: Automated exposure control was utilized; adjustment of th e MA and/or KV according to patient size; and use of iterative reconstruction technique.
--- NOTE | 2024-05-27 13:40 | PRN ---
Misceleneous Note Note Note ICU progress note Subjective 78-year-old male transferred from [facility] for metabolic encephalopathy. On my assessment patient looks septic, altered. Patient fluid down. Objective Physical exam Altered, agitated PERRLA No JVD Rhonchi left more than right S1-S2 regular rate and rhythm no murmur Abdomen soft nontender, no organomegaly Moving all four extremities No lower extremity edema Diabetic foot with ulcer, covered Right BKA Lab Low bicarb Normocytic anemia Elevated BNP EKG Sinus tach Imaging Chest x-ray with right side interstitial Point of care ultrasound done today and interpreted by me Cardiac: No pericardial effusion, grossly normal contractility, IVC less than 2 cm with more than 50% excursion on inspiration Lung: No B-lines, no pleural effusion, hepatization of the lung on the left side with air bronchogram Abdomen: Grossly normal liver, no dilated CBD, gallbladder without stone, bilateral kidney equal in size, bladder not found/flat Assessment and plan Septic shock Toxic/metabolic encephalopathy Left diabetic ulcer Osteomyelitis Status post right BKA Diabetes Possible history of heart failure MARYANA on 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 agitation [place] Aspiration precaution Low threshold for intubation for airway protection/impending hypoxic respiratory failure We will get DEEPIKA once out of shock Neuro consult appreciated Possible MRI if no improvement in mental status and once out of shock Trend creatinine, H&H Lines Add midline Maintain potassium of 4, phosphate of 3 and magnesium of 2 Diet NPO except meds GI prophylaxis IV PPI DVT prophylaxis on hold for possible surgery 92 minutes critical care time spent on this patient including evaluation, chart review, formulating plan and communication with team, excluding any procedures or point of care imaging Date of Service: May 27, 2024 Billing Provider: CHARITY ALBERTO MD Common Visit Codes: [id number] INP/OBS CARE(HIGH), [id number] CARE 30-74 MIN, [id number] CARE-EACH +30MIN CHARITY ALBERTO MD May 27, 2024 13:40
--- NOTE | 2024-05-27 13:59 | PRN ---
Misceleneous Note Note Note Called next of kin on the phone for more collateral. Baseline mental status prior to admission, lives by himself, partially dependent, functional, however poor diet. On 05/20 he called the patient, found him to have altered speech and somewhat confused. No prior GOC discussion between pt and family member. No po wer of district attorney paper. Discussed regarding intubation, we will go ahead with intubation per NOK. Regarding CPR, NOK informed me that patient would not prefer that. We will set patient as DNR with trial of intubation. I discussed regarding the need of amputation and he will make himself available for consent if podiatry needs it. More than 30 minutes spent in advanced care planning, including discussing code status, medical decision maker, goals of care and disposition planning. Code status DNR with trial of intubation Goals of care curative NOK in chart Date of Service: May 27, 2024 Billing Provider: CHARITY ALBERTO MD Common Visit Codes: PROCEDURE ONLY Secondary Visit Codes: [id number] CARE PLAN 30 MINUTES CHARITY ALBERTO MD May 27, 2024 13:59
[2024-05-27 14:55] LABS: Basophils # (auto) 0 10 ^3/uL (0-0.2); Basophils % (auto) 0.2 % (0.0-2.0); Eosinophils # (auto) 0 10 ^3/uL (0-0.8); Hemoglobin 8.9 g/dL (13.5-17.5); Lymphocytes # (auto) 0.5 10 ^3/uL (0.4-5.4); Lymphocytes % (auto) 4.1 % (10.0-50.0); Mean Corpuscular Hemoglobin 29.9 pg (28.0-32.0); Mean Corpuscular Hgb Conc. 31.8 g/dL (32.0-36.0); Mean Corpuscular Volume 93.8 fL (80.0-100.0); Monocytes # (auto) 0.7 10 ^3/uL (0-1.3); Monocytes % (auto) 6.5 % (0.0-12.0); Neutrophils # (auto) 9.8 10 ^3/uL (1.6-8.6); Neutrophils % (auto) 89.2 % (37.0-80.0); Platelet Count (auto) 173 10^3/uL (140-450); Red Blood Cells 2.98 10^6/uL (4.5-5.90); Red Cell Distribution Width 14.8 % (11.8-14.3)
[2024-05-27 14:56] LABS: Base Excess -11.8 mmol/L (-2.0-3.0)
--- NOTE | 2024-05-27 15:01 | DVH ---
Left Lower Extremity Arterial Duplex Clinical History: possible surgery and vascular supply compromise. Comparison: None Technique: Duplex Doppler evaluation including color Doppler and spectral/pulsed waveform analysis of the lower extremity arteries was performed. Findings: LEFT: Peak systolic velocities are as follows: FLEET SALESPERSON 202 cm/s BIPHASIC WAVEFORM Deep femoral 156 cm/s BIPHASIC WAVEFORM SFA proximal 185 cm/s BIPHASIC WAVEFORM SFA mid-portion 131 cm/s biphasic waveform SFA distal 92 cm/s biphasic waveform Popliteal 134 cm/s biphasic waveform Posterior tibial 77 cm/s monophasic waveform Anterior tibial 22 cm/s monophasic waveform Dorsalis pedis 11 cm/s monophasic wave The waveforms are biphasic waveform [id number] monophasic waveform [id number]. IMPRESSION: 1. No arterial occlusion. 2. Monophasic waveform [id number]. REFERENCE VALUES, [facility]) vascular Imaging Lab Criteria: Peak systolic velocity ranges (in cm/sec) are as follows: <150 cm/s - <20 % stenosis 150-200 cm/s - 20-49% stenosis 200-300 cm/s - 50-75% stenosis >300 cm/s -> 75% stenosis
[2024-05-27 15:11] LABS: Alanine Aminotransferase 18 U/L (7-40); Alkaline Phosphatase 67 U/L (46-116); Anion Gap 13 (5-15); Aspartate Aminotransferase 37 U/L (13-40); BUN/Creatinine Ratio 19.1 (10.0-20.0); Bilirubin, Total 0.2 mg/dL (0.2-1.0); Blood Urea Nitrogen 61 mg/dL (9-23); Calcium 8.4 mg/dL (8.7-10.4); Carbon Dioxide 14 mmol/L (20-31); Chloride 117 mmol/L (98-107); Glucose 144 mg/dL (74-106); Potassium 4.4 mmol/L (3.5-5.1); Sodium 144 mmol/L (136-145)
[2024-05-27] MEDS: LACTATED RINGER'S 2,200 ML IV ONE ×2 (19:45→19:55)
[2024-05-27] MEDS ORDERED: ATORVASTATIN 20 MG TAB PO SCH (22:00)
[2024-05-28] VITALS (64 sets, daily range): BP systolic 84–142; BP diastolic 39–95; PULSE 81–111; RESP 10–19; TEMP 97.4–98.6; O2SAT 92–100
[2024-05-28 01:07] LABS: Rapid Influenza A Negative (Negative); Rapid Influenza B Negative (Negative)
[2024-05-28 01:11] LABS: COVID19 ANTIGEN SOFIA FIA POSITIVE (NEGATIVE)
[2024-05-28] MEDS: HALOPERIDOL LACTATE 5 MG/ML INJ VIAL IM PRN (03:14)
[2024-05-28 05:25] LABS: Basophils # (auto) 0 10 ^3/uL (0-0.2); Basophils % (auto) 0.4 % (0.0-2.0); Eosinophils # (auto) 0 10 ^3/uL (0-0.8); Hemoglobin 9.1 g/dL (13.5-17.5); Lymphocytes # (auto) 0.5 10 ^3/uL (0.4-5.4); Mean Corpuscular Hemoglobin 30.3 pg (28.0-32.0); Mean Corpuscular Hgb Conc. 32.5 g/dL (32.0-36.0); Mean Corpuscular Volume 93.3 fL (80.0-100.0); Monocytes # (auto) 0.5 10 ^3/uL (0-1.3); Neutrophils # (auto) 5.8 10 ^3/uL (1.6-8.6); Neutrophils % (auto) 84.6 % (37.0-80.0); Platelet Count (auto) 147 10^3/uL (140-450); Red Cell Distribution Width 15.3 % (11.8-14.3); White Blood Cell 6.8 10^3/uL (4.4-10.8)
[2024-05-28 05:40] LABS: Alanine Aminotransferase 19 U/L (7-40); Alkaline Phosphatase 66 U/L (46-116); Anion Gap 14 (5-15); Aspartate Aminotransferase 39 U/L (13-40); BUN/Creatinine Ratio 19.3 (10.0-20.0); Blood Urea Nitrogen 63 mg/dL (9-23); Calcium 8.8 mg/dL (8.7-10.4); Carbon Dioxide 15 mmol/L (20-31); Chloride 117 mmol/L (98-107); Glucose 179 mg/dL (74-106); Magnesium 1.9 mg/dL (1.6-2.6); Potassium 4.4 mmol/L (3.5-5.1); Sodium 146 mmol/L (136-145)
[2024-05-28 05:41] LABS: Albumin 3.1 g/dL (3.2-4.8); Bilirubin, Total 0.2 mg/dL (0.2-1.0); Phosphorus 4.2 mg/dL (2.4-5.1); Total Protein 6.1 g/dL (5.7-8.2)
--- NOTE | 2024-05-28 07:08 | DVH ---
CHEST RADIOGRAPH Indication:Routine Technique: Single frontal view of the chest was obtained Comparison: XY CHEST PORTABLE on DOS: 05/27/24, XY CHEST PORTABLE on DOS: 05/27/24 FINDINGS: Lines and Tubes: None Lungs: Extensive pulmonary edema. Pleura: No effusion. No pneumothorax. Cardiomediastinal contours: Unremarkable Bones: No acute osseous abnormality. IMPRESSION: Extensive pulmonary edema. Atypical viral pneumonia can not be excluded.
[2024-05-28] MEDS: BUPIVACAINE 0.5% P/F INJ 10 ML VIAL ONE (07:33)
[2024-05-28] MEDS ORDERED: REMDESIVIR PER PHARMACY 0 ML IV SCH (08:00)
[2024-05-28 08:58] LABS: INR 1.13 (0.9-1.15); Prothrombin Time 11.9 sec (9.3-11.8)
--- NOTE | 2024-05-28 09:59 | DVHPNRES ---
Progress Note Date Seen: May 28, 2024 Resident Creating Document: HONG REBOLLAR RESIDENT Has the PT tested + for MRSA If YES, has PT been informed?: No Medical Necessity Reason Pt with a Central, PICC or Fol: Yes The following are medically ne: Wilson Catheter Subjective Review of Systems Review of Systems: HEENT:Normal (Oral mucosa dry), CVS:Normal, RESPIRATORY:Abnormal (On 4-6 L of nasal cannula oxygen, basal rales and crackles, diminished air entry.), GI:Normal (BS positive, negative for tenderness, guarding), :Normal (On Wilson's catheter), MSK:Abnormal (Right BKA clean stump noted. Left foot wound noted dressing clean.), NEURO:Abnormal (Alert, patient is disoriented most of the times patient could not answer any questions. In the afternoon patient is more awake GCS 10. Still not able to protect airways. Remained NPO. Continuous rehabilitation.) Patient reports: No new complaints, Feels better Changes from previous H/P or p: No Changes Objective vital signs Vital Sign Date Time Temp Pulse Resp B/P (MAP) Pulse Ox O2 Delivery O2 Flow Rate FiO2 05/28/24 05:00 103 17 120/55 (76) 98 05/28/24 04:00 98.4 98.4 05/27/24 20:00 Nasal Cannula* 4 36 Total Intake and Output 05/27/24 05/27/24 05/28/24 15:00 23:00 07:00 Intake Total 50 ml 50 ml Output Total 1100 ml 1350 ml Balance -1050 ml -1300 ml medications Current Medications Medications Dose Ordered Sig/Eagle Route Start Time Stop Time Status Last Admin Dose Admin Sodium Chloride 10 ml Q8HR IV 05/27/24 06:00 05/28/24 06:05 10 ML Acetaminophen 650 mg Q6HP PRN PO 05/26/24 22:30 Vancomycin HCl 0 ml @ 0 mls/hr UD IV 05/26/24 22:45 Enoxaparin Sodium 30 mg DAILY SC 05/27/24 10:00 05/27/24 09:41 30 MG Lorazepam 1 mg ONCE PRN IV 05/26/24 23:15 Aspirin 81 mg DAILY PO 05/27/24 10:00 Diagnostic Test (Pha) 1 strip ACHS 05/27/24 07:00 05/28/24 06:04 1 STRIP Insulin Human Regular ACHS SC 05/27/24 07:00 05/28/24 06:05 3 UNITS Dextrose 50 ml UD PRN IV 05/27/24 00:00 Meropenem 50 ml @ 17 mls/hr Q12HR IV 05/27/24 10:00 05/27/24 22:35 17 MLS/HR Haloperidol Lactate 5 mg Q8HP PRN IM 05/27/24 13:45 05/28/24 03:14 5 MG Remdesivir 0 ml @ 0 mls/hr PER PHARMACY IV 05/28/24 08:00 05/30/24 08:01 Melatonin 5 mg HS PO 05/28/24 22:00 Remdesivir 100 mg/ Sodium Chloride 250 ml @ 250 mls/hr DAILY@1500 IV 05/29/24 15:00 05/30/24 15:59 Examination Examination: GENERAL:Abnormal (Overlook 6, in distress, disoriented occasionally opening eyes), HEENT:Normal, NECK:Normal (JVD known elevated), LUNGS:Abnormal (On nasal cannula oxygen, diminished bilateral air entry, crackles), CVS:Normal, ABDOMEN:Normal, MSK:Abnormal (Right below-knee amputation, left foot wound), SKIN:Abnormal (Wound), NEURO:Abnormal (Opens eyes to voice, to pain stimulus patient is reactive, incoherent talk ? Aphasia. Can not complete full neurological assessment as patient is not able to follow instructions.) laboratory and microbiology Laboratory Tests 05/28/24 05:11 Test 05/28/24 05:11 Range/Units Serum Glucose 179 H 74-106 mg/dL Microbiology Date/Time Source Procedure Growth Status 05/27/24 04:30 Nose MRSA Screen - Final Complete Labs and/or images reviewed: Labs reviewed by me, Image(s) reviewed by me Problem List/Assessment/Plan Problem List/Assessment/Plan Hospital Course: Mr. Vallejo, a 78-year-old male with a history of heart failure with a reduced ejection fraction of 25%, uncontrolled diabetes mellitus, CKD, recurrent UTIs, recurrent skin and soft tissue infection and right BKA, presents with metabolic encephalopathy and altered mental status, requiring supplemental oxygen and care for left foot osteomyelitis. Initially patient was admitted in [facility] initially 05/18/2024, was found for sepsis and initial treatment was done with IV antibiotics and patient was transferred to [facility] for optimum Care and close follow up with the Podiatry team. Status post TMA , back to the TIGRE status. # metabolic vs toxic encephalopathy vs mixed: Alert but oriented X2, as needed haloperidol for agitation, bilateral mittens hand, aspiration precaution and delirium precaution. # Multiple strokes prior CT brain scan: Appreciate Neurology input. Discussion with the Radiology reveals that no possibility of MRI until patient is negative for COVID. When possible MRI with appropriate IV for further evaluation. pending GABBIE when patient is stable. appreciate neurology input. # possible aspiration pneumonia: On broad-spectrum antibiotics, sputum culture pending. # COVID infection pointing towards viral pneumonia: with acute hypoxic respiratory failure started on remdesivir and dexamethasone 4 daily. Wean as tolerated. Lovenox to continue. # Acute hypoxic respiratory failure , likely due to above Pathologies, complicated with congestive heart failure: TSH WNL, negative lactate, BNP of 1347, wean as tolerated. # right external carotid artery greater than 70% stenosis: All the clinical significance undetermined. Collaterals intact. # MARYANA due to VMN: developing acute renal failure elevating creatinine: BUN rising, check input output closely. Declining urinary function. Nephrology consulted. Close I&O, infection control and hydration to continue. # questionable CKD: stage undetermined, given longstanding diabetes. No known baseline. # Left foot osteomyelitis with overlying skin and soft tissue infection: For now we will continue IV antibiotics, pending wound culture. status post TMA surgery today 05/28/2024. # osteomyelitis needing surgical amputation by Podiatry on left foot: continue iv vancomycin and meropenam. discussed with the pharmacy to discuss regarding the vancomycin dose. # Likely UTI, could be hospital-acquired, from recent hospitalization: l eukocyte esterase 3+, recent hospitalization, RBC 2720, WBC 306, blood 3+ negative nitrites: Urine culture to follow , continue broad-spectrum antibiotics. # Sepsis secondary due to UTI, osteomyelitis and COVID: continue antibiotics and antivirals. Blood culture pending. Pending source control as soon as possible. MRSA screen negative. Lactic negative. # anemia of chronic disease: Likely due to CKD/multifactorial, poor nutrition: Daily CBC, transfusion threshold 7. # Diabetes mellitus well controlled, 6.4 HbA1c: patient on NPO, target BG 140- 180 mg per dL. # DVT prophylaxis: significant Britany score, subcutaneous Lovenox to continue for now for prophylactic dose. close follow up with CBC and platelet count. # Diet: bedside swallow evaluation, aspiration precautions, start with pureed diet, advanced as tolerated. Case discussed with Dr. Hayes. Barriers to discharge: Ongoing medical treatment. remains in the [facility]. Code status: Power of family law attorney, next kin Madhu Wright discussed over phone [phone]. Complex patient care discussion needed total 39 minutes. so far patient is modified code status with DNR/do not resuscitate along with intubation trial. Plan discussed with: Patient, Other My Orders My Orders Orders - HONG REBOLLAR RESIDENT Procedure Category Date Status Time Blood Culture FRANCISCO 05/27/24 In Process 12:43 Wound Culture W/ Gs FRANCISCO 05/27/24 In Process 12:43 Lt Low Ext Art Duplex US 05/27/24 Resulted 12:44 Transfer Orders XFER 05/27/24 Transmitted 19:39 Communication Order ORDERS 05/28/24 Transmitted 00:42 Chest Portable XY 05/28/24 Resulted 04:00 Mrsa Screen FRANCISCO 05/28/24 In Process 03:04 Remdesivir Per PHA 05/28/24 In Process Pharmacy 08:00 Lactated Ringer's PHA 05/28/24 In Process 08:15 Oral Care Q4hrs Using LISANDRO 05/28/24 In Process Oral Kit 08:02 Strict Aspiration LISANDRO 05/28/24 In Process Precautions 08:03 Communication Order ORDERS 05/28/24 Transmitted 08:03 Melatonin (Melatonin) PHA 05/28/24 In Process 22:00 Precautions: Airborne LISANDRO 05/28/24 In Process 08:07 Fall Precautions LISANDRO 05/28/24 In Process Initiated 08:07 Fall Risk Precautions LISANDRO 05/28/[address] 08:07 Remdesivir 100mg PHA 05/29/24 In Process ([place]) 15:00 *Dr[facility] CONS 05/28/24 Transmitted -[place] 08:58 HONG REBOLLAR RESIDENT May 28, 2024 09:59
[2024-05-28] MEDS ORDERED: PROPOFOL 10 MG/ML 20 ML IV ONE (10:19)
[2024-05-28] MEDS ORDERED: KETAMINE 50mg/ML 1ml syringe ONE (10:19)
[2024-05-28] MEDS ORDERED: ONDANSETRON HCL 4 MG/2 ML VIAL ONE (10:19)
[2024-05-28] MEDS ORDERED: GLYCOPYRROLATE 0.2 MG/ML 1ML VIAL ONE (10:19)
[2024-05-28] MEDS ORDERED: MIDAZOLAM HCL 2MG/2ML 2ml VIAL (1mg/ml) ONE (10:19)
--- NOTE | 2024-05-28 10:51 | DVHPN2 ---
Subjective Yoni Tuttle, a 78-year-old male with a past medical history of congestive heart failure, diabetes, CKD, recurrent urinary tract infections, and right BKA, presents with a chief complaint of metabolic encephalopathy. The patient was transferred from [facility] and is currently experiencing an altered mental state. patient was brought to the [facility] on 05/18/2024 with a chief company of altered mental status, the patient was transferred to [facility] on 06/12/2024, likely for care of his left foot osteomyelitis. He is not talking and has an A&O X1. Pt has a history of left foot osteomyelitis, which was diagnosed at [facility]. The patient reports low oxygen saturation levels, ranging from 84 to 88, and is now on 3 liters of oxygen. He is breathing through his mouth, necessitating supplemental oxygen through a simple mask. Changes from previous H/P or p: No Changes Objective Vitals Vital Signs Date Time Temp Pulse Resp B/P (MAP) Pulse Ox O2 Delivery O2 Flow Rate FiO2 05/28/24 05:00 103 17 120/55 (76) 98 05/28/24 04:00 98.4 98.4 05/27/24 20:00 Nasal Cannula* 4 36 Intake/Output Intake and Output 05/28/24 07:00 Intake Total 100 ml Output Total 2450 ml Balance -2350 ml Intake Oral 0 ml IV Total 100 ml Output Urine Total 2450 ml Exam DERMATOLOGIC EXAM: - Skin is dry and cool to the touch dry bilaterally. - Nails 1-5 of the bilateral foot are thickened, discolored, dystrophic, and tender to palpate with subungual debris - Hair loss noted to bilateral feet - left lateral foot necrosis with exposed bone and cellulitis VASCULAR EXAM: - DP and PT pulses are nonpalpable bilaterally. 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 - Feet are cool to touch compared to lower legs bilaterally. NEUROLOGIC EXAM: - Normal light touch sensation to the superficial peroneal, deep peroneal, sural, saphenous, and tibial nerve branches. - Protective sensation is diminished as tested with a 5.07 10g Tyndall-Brigida bilaterally. MUSCULOSKELETAL EXAM: - No gross deformities - Muscle strength is 5/5 and active motion is pain-free and symmetrical bilaterally - No pain or crepitation with passive range of motion bilaterally to all major pedal joints Medications Current Medications Medications Dose Ordered Sig/Eagle Route Start Time Stop Time Status Last Admin Dose Admin Sodium Chloride 10 ml Q8HR IV 05/27/24 06:00 05/28/24 06:05 10 ML Acetaminophen 650 mg Q6HP PRN PO 05/26/24 22:30 Vancomycin HCl 0 ml @ 0 mls/hr UD IV 05/26/24 22:45 Enoxaparin Sodium 30 mg DAILY SC 05/27/24 10:00 05/27/24 09:41 30 MG Lorazepam 1 mg ONCE PRN IV 05/26/24 23:15 Aspirin 81 mg DAILY PO 05/27/24 10:00 Diagnostic Test (Pha) 1 strip ACHS 05/27/24 07:00 05/28/24 06:04 1 STRIP Insulin Human Regular ACHS SC 05/27/24 07:00 05/28/24 06:05 3 UNITS Dextrose 50 ml UD PRN IV 05/27/24 00:00 Meropenem 50 ml @ 17 mls/hr Q12HR IV 05/27/24 10:00 05/27/24 22:35 17 MLS/HR Haloperidol Lactate 5 mg Q8HP PRN IM 05/27/24 13:45 05/28/24 03:14 5 MG Remdesivir 0 ml @ 0 mls/hr PER PHARMACY IV 05/28/24 08:00 05/30/24 08:01 Melatonin 5 mg HS PO 05/28/24 22:00 Remdesivir 100 mg/ Sodium Chloride 250 ml @ 250 mls/hr DAILY@1500 IV 05/29/24 15:00 05/30/24 15:59 Laboratory Results Laboratory Tests 05/28/24 05:11 Chemistry Test 05/27/24 14:37 05/28/24 05:11 Albumin 3.0 g/dL (3.2-4.8) L 3.1 g/dL (3.2-4.8) L Calcium Level 8.4 mg/dL (8.7-10.4) L 8.8 mg/dL (8.7-10.4) Total Protein 6.0 g/dL (5.7-8.2) 6.1 g/dL (5.7-8.2) Magnesium Level 1.9 mg/dL (1.6-2.6) Phosphorus Level 4.2 mg/dL (2.4-5.1) Coagulation Test 05/28/24 08:30 Prothrombin Time 11.9 sec (9.3-11.8) H Prothrombin Time INR 1.13 (0.9-1.15) Activated Partial Thromboplast Time 39.0 SEC (24.5-34.5) H LFT Test 05/27/24 14:37 05/28/24 05:11 Alanine Aminotransferase (ALT) 18 U/L (7-40) 19 U/L (7-40) Alkaline Phosphatase 67 U/L (46-116) 66 U/L (46-116) Aspartate Amino Transferase (AST) 37 U/L (13-40) 39 U/L (13-40) Total Bilirubin 0.2 mg/dL (0.2-1.0) 0.2 mg/dL (0.2-1.0) Urinalysis Test 05/27/24 05:00 Urine Color Light-red (Yellow) Urine Clarity Ex.turbid (Clear) Urine pH 5.5 (5.0-9.0) Urine Specific Almo 1.013 (1.001-1.035) Urine Protein 2+ (Negative) H Urine Ketones Trace (Negative) Urine Blood 3+ /uL (Negative) H Urine Nitrite Negative (Negative) Urine Bilirubin Negative (Negative) Urine Urobilinogen Normal mg/dL (Negative) Urine Leukocyte Esterase 3+ /uL (Negative) Urine RBC 2720 /hpf (0 - 3) Urine WBC 306 /hpf (0 - 3) Urine Squamous Epithelial Cells None seen /hpf (<5) Urine Bacteria None seen /hpf (None Seen) Urine Glucose 1+ mg/dL (Normal) H Blood Gas Results Test 05/27/24 14:45 Arterial Blood pH 7.360 (7.350-7.450) FiO2 % 36.0 Microbiology Microbiology Date/Time Source Procedure Growth Status 05/27/24 04:30 Nose MRSA Screen - Final Complete Assessment/Plan Assessment/Plan ASSESSMENT: Patient is a 78-year-old male seen on the floor for worsening left foot wound PLAN: - The patients chart was reviewed, clinical findings were discussed with the patient, the etiologies of the conditions were discussed in detail, and a treatment plan was agreed to at this time, with both oral and written instructions provided. - reviewed x-rays and CT - patient has exposed bone with significant necrosis around it on the left lateral foot - patient will need a TMA - patient will need vascular workup - recommend that we get ABIs - patient NPO since midnight - we will plan for left foot TMA All questions were answered and concerns addressed to the patient's satisfaction. The patient was given the phone number to the clinic and was told how to make contact with the clinic should any concerns or questions arise. Patient understands that if any questions or concerns arise prior to the next appointment, we should be contacted immediately. 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
[2024-05-28] MEDS: LIDOCAINE 1% HCL (LOCAL ANESTH.) INJ 20ML MDV ONE (11:39)
[2024-05-28] MEDS: REMDESIVIR 200mg in NS 210mL LOADING DOSE ADULT IV ONE (12:55)
--- NOTE | 2024-05-28 13:50 | DVHPN2 ---
Progress Note - Dictate Date Seen: May 28, 2024 Has the PT tested + for MRSA If YES, has PT been informed?: No Medical Necessity Reason Pt with a Central, PICC or Fol: Yes The following are medically ne: Wilson Catheter Subjective Mr Vallejo is a 78 years old gentleman with a history of diabetes, congestive heart failure, chronic kidney failure, left foot osteomyelitis, status post right BKA, the patient was brought to the [facility] on 05/18/2024 with a chief company of altered mental status, the patient was transferred to [facility] on 05/26/2024, likely for for care of his left foot osteomyelitis. I have seen examined the patient in [facility], talked to his nurse, he is awake, he may only oriented to himself, he keeps moving the [facility], 05/18/2024: Negative Urinalysis, 05/18/2024: Urine leukocyte esterase: 2+ WBC/HB/PLT/MCV, 05/18/24: 11.9/9.6/210/96.2 Potassium, 05/18/2024: 5.1 BUN/CR, 05/18/2024: 65/2.19 GFR, 05/18/2024: 31.17 Liver. function tests, 12/17/2023: Unremarkable CT head, 05/18/2024: Hypodense area involving the right high convexity frontal lobe and bilateral cerebellum which may represent area of in fact of unknown chronicity I do not see imaging reports of the left foot SARS-CoV-2 antigen, 05/27/2024: Positive Urinalysis, 05/27/2024: WBC: 306, urine leukocyte esterase: 3+ UDS, 05/27/2024: Negative WBC/HB/PLT/MCV, 05/27/2024: 10.5/9.6/180/94.3 BUN/CR, 05/27/2024: 57/2.83 HCO3, 05/27/2024: 13 Liver function tests, 05/27/2024: Unremarkable TG/HDL/LDL/HDL, 05/26/2024: 109/102/46/32 Vitamin B12, 05/2024: 1314 Folic acid, 05/2024: 28.3 TSH, 05/2024: 1.7 Carotid Doppler, 05/27/2024: 1. There is 50-69% stenosis of the right proximal ICA by atherosclerotic plaque. 2. Greater than 70% stenosis of the right external carotid artery by atherosclerotic plaque. 3. No significant left common carotid or ICA stenosis CT head, 05/27/2024: No definite CT findings of acute osteomyelitis. MRI can be obtained to further evaluate if clinically indicated. Soft-tissue ulceration and small volume subcutaneous emphysema involving the dorsal/lateral aspect of the foot. Clinical correlation advised. vital signs Vital Sign Date Time Temp Pulse Resp B/P (MAP) Pulse Ox O2 Delivery O2 Flow Rate FiO2 05/28/24 12:15 88 11 104/49 (67) 100 05/28/24 08:00 Nasal Cannula* 4 36 05/28/24 04:00 98.4 98.4 Total Intake and Output 05/27/24 05/27/24 05/28/24 15:00 23:00 07:00 Intake Total 50 ml 50 ml Output Total 1100 ml 1350 ml Balance -1050 ml -1300 ml medications Current Medications Medications Dose Ordered Sig/Eagle Route Start Time Stop Time Status Last Admin Dose Admin Sodium Chloride 10 ml Q8HR IV 05/27/24 06:00 05/28/24 06:05 10 ML Acetaminophen 650 mg Q6HP PRN PO 05/26/24 22:30 Vancomycin HCl 0 ml @ 0 mls/hr UD IV 05/26/24 22:45 Enoxaparin Sodium 30 mg DAILY SC 05/27/24 10:00 05/28/24 12:54 30 MG Lorazepam 1 mg ONCE PRN IV 05/26/24 23:15 Aspirin 81 mg DAILY PO 05/27/24 10:00 05/28/24 12:54 81 MG Diagnostic Test (Pha) 1 strip ACHS 05/27/24 07:00 05/28/24 12:56 1 STRIP Insulin Human Regular ACHS SC 05/27/24 07:00 05/28/24 06:05 3 UNITS Dextrose 50 ml UD PRN IV 05/27/24 00:00 Meropenem 50 ml @ 17 mls/hr Q12HR IV 05/27/24 10:00 05/28/24 12:55 17 MLS/HR Haloperidol Lactate 5 mg Q8HP PRN IM 05/27/24 13:45 05/28/24 03:14 5 MG Remdesivir 0 ml @ 0 mls/hr PER PHARMACY IV 05/28/24 08:00 05/30/24 08:01 Melatonin 5 mg HS PO 05/28/24 22:00 Remdesivir 100 mg/ Sodium Chloride 250 ml @ 250 mls/hr DAILY@1500 IV 05/29/24 15:00 05/30/24 15:59 objective General: the patient is well developed and nourished. No acute distress. Status post right BKA MENTAL STATUS: Subjective SPEECH, LANGUAGE, HIGHER CORTICAL FUNCTION: no aphasia or dysathria. CRANIAL NERVES: Intact visual harrison to confrontation. Pupils are equal, round and reactive. EOMs full and conjugate. Facial sensation intact in all three divisions bilaterally. Mandibular strength intact. Facial muscles symmetrical and strength intact. SENSATION: Sensation to touch and pinprick is normal. MOTOR: Normal tone in the upper and lower extremity. Normal muscle bulk. No fasciculations. No abnormal movements or posturing. He moves the arms and legs, the muscle power looks normal REFLEXES: Deep tendon reflexes are symmetrical. No pathological reflexes. CEREBELLAR/COORDINATION: Deferred GAIT/STATION: deferred. laboratory and microbiology Laboratory Tests 05/28/24 05:11 Test 05/28/24 05:11 Range/Units Serum Glucose 179 H 74-106 mg/dL Problem List Metabolic encephalopathy secondary to osteomyelitis Multiple strokes per CT brain scan Left foot osteomyelitis COVID-19 Assessment/Plan Monitoring Supportive treatment TIGRE Aerosol isolation GABBIE MRI brain Aspirin 81 mg daily Lipitor 10 mg daily for now Haldol 2.5 mg IM Q 8 hours p.r.n. for agitation Podiatry consultation Progress: Poor This is a difficult a long consultation. I have discussed with his nurseblood This medical document was created using an electronic medical record system with Bahoui dictation system. Although this document has been carefully reviewed, there may still be some phonetic and typographical errors. These areas are purely typographical due to imperfections of the software programs, and do not reflect any compromise in the patient's medical care. Prognosis poor Plan discussed with: Other DALTON HARRISON MD May 28, 2024 13:50
[2024-05-28] MEDS: DexAMETHasone 4 MG TAB PO ONE (15:43)
[2024-05-28] MEDS: LACTATED RINGER'S 2,200 ML IV ONE (15:45)
--- NOTE | 2024-05-28 16:00 | DVHINCON2 ---
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 He recieved ABX IV vanco and cefepime given hx Pseudomonas. He was transferred to [facility] for Podiatry surgery, cr in VV ~ 2.1 on admissin here patient recieved 2 consecutive days of vancomycin IV. He was dianosed w/ Covid. He is s/p Surgery. Nephrology called for worsening progressive renal function vanco trough today 26.8 Past Medical History As above Past Surgical History BKA Allergies: Coded Allergies: NO KNOWN ALLERGIES (Unverified , 05/27/24) Home Meds Unable to Obtain Active Prescriptions or Reported Meds Current Medications Current Medications Medications (Trade) Dose Ordered Sig/Eagle Route PRN Reason Start Time Stop Time Status Last Admin Atorvastatin Calcium (Lipitor) 10 mg HS PO 05/27/24 22:00 05/26/24 23:15 DC Remdesivir 0 ml @ 0 mls/hr PER PHARMACY IV 05/28/24 08:00 05/30/24 08:01 Melatonin (Melatonin) 5 mg HS PO 05/28/24 22:00 Remdesivir 100 mg/ Sodium Chloride 250 ml @ 250 mls/hr DAILY@1500 IV 05/29/24 15:00 05/30/24 15:59 Dexamethasone (Decadron Tablet) 4 mg DAILY PO 05/29/24 10:00 Family History: Patient reports no known family medical history. Review of Systems Weakness H&P Exam Vital Signs/I&O Vital Sign Date Time Temp Pulse Resp B/P (MAP) Pulse Ox O2 Delivery O2 Flow Rate FiO2 05/28/24 15:30 96 13 124/54 (77) 100 05/28/24 12:00 97.7 97.7 05/28/24 08:00 Nasal Cannula* 4 36 Intake and Output 05/27/24 05/28/24 19:00 07:00 Intake Total 50 ml 50 ml Output Total 1100 ml 1350 ml Balance -1050 ml -1300 ml Intake Oral 0 ml IV Total 50 ml 50 ml Output Urine Total 1100 ml 1350 ml Physical Exam Frail elderly male Not intubated Lethargic but not in overt distress Abdomen is soft Left foot amputation Right [id number] amputation Wilson catheter clear yellow urine Labs/Diagnostic Data Labs/Diagnostic Data Laboratory Tests Test 05/28/24 12:59 05/28/24 08:30 05/28/24 05:11 05/28/24 05:10 Range/Units POC Glucose 110 H 183 H 70-106 mg/dl Prothrombin Time 11.9 H 9.3-11.8 sec Prothrombin Time INR 1.13 0.9-1.15 Activated Partial Thromboplast Time 39.0 H 24.5-34.5 SEC White Blood Count 6.8 # 4.4-10.8 10^3/uL Red Blood Count 3.00 L 4.5-5.90 10^6/uL Hemoglobin 9.1 L 13.5-17.5 g/dL Hematocrit 28.0 L 41.0-53.0 % Mean Corpuscular Volume 93.3 80.0-100.0 fL Mean Corpuscular Hemoglobin 30.3 28.0-32.0 pg Mean Corpuscular Hemoglobin Concent 32.5 32.0-36.0 g/dL Red Cell Distribution Width 15.3 H 11.8-14.3 % Platelet Count 147 140-450 10^3/uL Mean Platelet Volume 11.0 H 6.9-10.8 fL Neutrophils (%) (Auto) 84.6 H 37.0-80.0 % Lymphocytes (%) (Auto) 7.0 L 10.0-50.0 % Monocytes (%) (Auto) 8.0 0.0-12.0 % Eosinophils (%) (Auto) 0.0 0.0-7.0 % Basophils (%) (Auto) 0.4 0.0-2.0 % Neutrophils # (Auto) 5.8 1.6-8.6 10 ^3/uL Lymphocytes # (Auto) 0.5 0.4-5.4 10 ^3/uL Monocytes # (Auto) 0.5 0-1.3 10 ^3/uL Eosinophils # (Auto) 0 0-0.8 10 ^3/uL Basophils # (Auto) 0 0-0.2 10 ^3/uL Nucleated Red Blood Cells 0.0 % Sodium Level 146 H 136-145 mmol/L Potassium Level 4.4 3.5-5.1 mmol/L Chloride Level 117 H 98-107 mmol/L Carbon Dioxide Level 15 L 20-31 mmol/L Anion Gap 14 5-15 Blood Urea Nitrogen 63 H 9-23 mg/dL Creatinine 3.26 H 0.700-1.30 mg/dL Glomerular Filtration Rate Calc 19 >90 mL/min BUN/Creatinine Ratio 19.3 10.0-20.0 Serum Glucose 179 H 74-106 mg/dL Calcium Level 8.8 8.7-10.4 mg/dL Phosphorus Level 4.2 2.4-5.1 mg/dL Magnesium Level 1.9 1.6-2.6 mg/dL Total Bilirubin 0.2 0.2-1.0 mg/dL Aspartate Amino Transferase (AST) 39 13-40 U/L Alanine Aminotransferase (ALT) 19 7-40 U/L Alkaline Phosphatase 66 46-116 U/L Total Protein 6.1 5.7-8.2 g/dL Albumin 3.1 L 3.2-4.8 g/dL Random Vancomycin Level 26.8 H 5-10 ug/mL Test 05/27/24 23:40 05/27/24 17:44 05/27/24 14:45 05/27/24 14:37 Range/Units Influenza Type A Antigen Negative Negative Influenza Type B Antigen Negative Negative SARS-CoV-2 Antigen (Rapid) Positive *A NEGATIVE POC Glucose 151 H 70-106 mg/dl Blood Gas Specimen Type Arterial Blood Gas Sample Site Left brachial Blood Gas Patient Temperature 37.0 Arterial Blood Date Drawn [id number] Arterial Blood pH 7.360 7.350-7.450 Arterial Blood Partial Pressure CO2 22.0 L 35.0-48.0 mmHg Arterial Blood Partial Pressure O2 55.2 L 83.0-108.0 mmHg Arterial Blood HCO3 12.1 L 21.0-28.0 mmol/L Arterial Blood Oxygen Saturation 86.3 L 94.0-98.0 % Arterial Blood Base Excess -11.8 L -2.0-3.0 mmol/L Arterial Blood Oxyhemoglobin 85.4 L 94.0-98.0 % Arterial Blood Carboxyhemoglobin 0.5 0.5-1.5 % Arterial Blood Methemoglobin 0.5 0.0-1.5 % Lion Test N/a Blood Gas Total Hemoglobin 9.00 L 13.5-17.5 g/dL Blood Gas Liter Flow 4.00 Blood Gas Modality Nasal cannula FiO2 % 36.0 White Blood Count 11.0 H 4.4-10.8 10^3/uL Red Blood Count 2.98 L 4.5-5.90 10^6/uL Hemoglobin 8.9 L 13.5-17.5 g/dL Hematocrit 28.0 L 41.0-53.0 % Mean Corpuscular Volume 93.8 80.0-100.0 fL Mean Corpuscular Hemoglobin 29.9 28.0-32.0 pg Mean Corpuscular Hemoglobin Concent 31.8 L 32.0-36.0 g/dL Red Cell Distribution Width 14.8 H 11.8-14.3 % Platelet Count 173 140-450 10^3/uL Mean Platelet Volume 11.0 H 6.9-10.8 fL Neutrophils (%) (Auto) 89.2 H 37.0-80.0 % Lymphocytes (%) (Auto) 4.1 L 10.0-50.0 % Monocytes (%) (Auto) 6.5 0.0-12.0 % Eosinophils (%) (Auto) 0.0 0.0-7.0 % Basophils (%) (Auto) 0.2 0.0-2.0 % Neutrophils # (Auto) 9.8 H 1.6-8.6 10 ^3/uL Lymphocytes # (Auto) 0.5 0.4-5.4 10 ^3/uL Monocytes # (Auto) 0.7 0-1.3 10 ^3/uL Eosinophils # (Auto) 0 0-0.8 10 ^3/uL Basophils # (Auto) 0 0-0.2 10 ^3/uL Nucleated Red Blood Cells 0.0 % Sodium Level 144 136-145 mmol/L Potassium Level 4.4 3.5-5.1 mmol/L Chloride Level 117 H 98-107 mmol/L Carbon Dioxide Level 14 L 20-31 mmol/L Anion Gap 13 5-15 Blood Urea Nitrogen 61 H 9-23 mg/dL Creatinine 3.20 H 0.700-1.30 mg/dL Glomerular Filtration Rate Calc 19 >90 mL/min BUN/Creatinine Ratio 19.1 10.0-20.0 Serum Glucose 144 H 74-106 mg/dL Lactic Acid Level 1.2 0.4-2.0 mmol/L Calcium Level 8.4 L 8.7-10.4 mg/dL Total Bilirubin 0.2 0.2-1.0 mg/dL Aspartate Amino Transferase (AST) 37 13-40 U/L Alanine Aminotransferase (ALT) 18 7-40 U/L Alkaline Phosphatase 67 46-116 U/L Total Protein 6.0 5.7-8.2 g/dL Albumin 3.0 L 3.2-4.8 g/dL Test 05/27/24 13:09 05/27/24 05:59 05/27/24 05:00 05/26/24 23:15 Range/Units POC Glucose 140 H 70-106 mg/dl White Blood Count 10.5 10.6 4.4-10.8 10^3/uL Red Blood Count 3.19 L 3.47 L 4.5-5.90 10^6/uL Hemoglobin 9.6 L 10.4 L 13.5-17.5 g/dL Hematocrit 30.1 L 32.7 L 41.0-53.0 % Mean Corpuscular Volume 94.3 94.3 80.0-100.0 fL Mean Corpuscular Hemoglobin 30.0 30.1 28.0-32.0 pg Mean Corpuscular Hemoglobin Concent 31.8 L 31.9 L 32.0-36.0 g/dL Red Cell Distribution Width 15.1 H 15.2 H 11.8-14.3 % Platelet Count 180 234 140-450 10^3/uL Mean Platelet Volume 11.3 H 10.9 H 6.9-10.8 fL Neutrophils (%) (Auto) 90.8 H 91.4 H 37.0-80.0 % Lymphocytes (%) (Auto) 2.9 L 2.4 L 10.0-50.0 % Monocytes (%) (Auto) 6.1 4.9 0.0-12.0 % Eosinophils (%) (Auto) 0.0 0.2 0.0-7.0 % Basophils (%) (Auto) 0.2 1.1 0.0-2.0 % Neutrophils # (Auto) 9.6 H 9.7 H 1.6-8.6 10 ^3/uL Lymphocytes # (Auto) 0.3 L 0.3 L 0.4-5.4 10 ^3/uL Monocytes # (Auto) 0.6 0.5 0-1.3 10 ^3/uL Eosinophils # (Auto) 0 0 0-0.8 10 ^3/uL Basophils # (Auto) 0 0.1 0-0.2 10 ^3/uL Nucleated Red Blood Cells 0.0 0.1 % Sodium Level 141 140 136-145 mmol/L Potassium Level 5.1 5.1 3.5-5.1 mmol/L Chloride Level 114 H 115 H 98-107 mmol/L Carbon Dioxide Level 13 L 12 L 20-31 mmol/L Anion Gap 14 13 5-15 Blood Urea Nitrogen 57 H 50 H 9-23 mg/dL Creatinine 2.83 H 2.86 H 0.700-1.30 mg/dL Glomerular Filtration Rate Calc 22 22 >90 mL/min BUN/Creatinine Ratio 20.1 H 17.5 10.0-20.0 Serum Glucose 221 H 258 H 74-106 mg/dL Calcium Level 8.6 L 8.7 8.7-10.4 mg/dL Total Bilirubin 0.3 0.3 0.2-1.0 mg/dL Aspartate Amino Transferase (AST) 27 18 13-40 U/L Alanine Aminotransferase (ALT) 18 22 7-40 U/L Alkaline Phosphatase 74 85 46-116 U/L Total Protein 6.2 6.9 5.7-8.2 g/dL Albumin 3.2 3.4 3.2-4.8 g/dL Urine Color Light-red Yellow Urine Clarity Ex.turbid Clear Urine pH 5.5 5.0-9.0 Urine Specific [place] 1.013 1.001-1.035 Urine Protein 2+ H Negative Urine Ketones Trace Negative Urine Blood 3+ H Negative /uL Urine Nitrite Negative Negative Urine Bilirubin Negative Negative Urine Urobilinogen Normal Negative mg/dL Urine Leukocyte Esterase 3+ Negative /uL Urine RBC 2720 0 - 3 /hpf Urine WBC 306 0 - 3 /hpf Urine Squamous Epithelial Cells None seen <5 /hpf Urine Bacteria None seen None Seen /hpf Urine Glucose 1+ H Normal mg/dL Urine Opiates Screen Neg NEGATIVE Urine Fentanyl Screen Neg NEGATIVE Urine Barbiturates Screen Neg NEGATIVE Urine Phencyclidine Screen Neg NEGATIVE Urine Amphetamines Screen Neg NEGATIVE Urine Benzodiazepines Screen Neg NEGATIVE Urine Cocaine Screen Neg NEGATIVE Urine Cannabinoids Screen Neg NEGATIVE Prothrombin Time 11.9 H 9.3-11.8 sec Prothrombin Time INR 1.13 0.9-1.15 Activated Partial Thromboplast Time 24.5 24.5-34.5 SEC Hemoglobin A1c 6.4 H <5.7 % A1C B-Type Natriuretic Peptide 1347.78 0-100 pg/mL Triglycerides Level 129 < 150 mg/dL Cholesterol Level 102 < 200 mg/dL LDL Cholesterol 46 < 100 mg/dL HDL Cholesterol 32 L 40-59 mg/dL Vitamin B12 Level 1314 H 211-911 pg/mL Vitamin D 25-Hydroxy 40.8 30.0-100 ng/mL Folic Acid 28.30 >5.38 ng/mL Thyroid Stimulating Hormone (TSH) 1.70 0.55-4.78 uIU/mL Free Thyroxine (T4) Calculated 1.20 0.89-1.76 ng/dL Microbiology Date/Time Source Procedure Growth Status 05/28/24 03:00 Nose MRSA Screen - Final Complete Assessment Acute kidney injury multifactorial. hemodynamic + vancotoxicity Ckd unspecified sepsis due to OM of foot s/p Surgery foot amputation 05/28/24 Covid PNA CKF EF 25% BKA Anemia Currently on diuretic therapy Vanco trough above target level recommend holding vanco until normalizes Strict Is&Os Currently on a fluid restriction Currently on remdesivir for treatment of COVID pneumonia. Given reduced GFR there is increased risk of kidney injury we will continue to monitor Avoid hypotension No emergent indication for dialysis at this time however requires close monitoring Plan discussed with: Patient ITZEL ORLANDO MD May 28, 2024 16:00
[2024-05-28] MEDS: MELATONIN 5 MG TAB PO SCH (22:24)
[2024-05-29] VITALS (60 sets, daily range): BP systolic 106–145; BP diastolic 45–77; PULSE 42–106; RESP 11–22; TEMP 98–98.3; O2SAT 91–100
[2024-05-29] MEDS: ACETAMINOPHEN 325 MG TAB PO PRN (01:59)
[2024-05-29 05:23] LABS: Basophils # (auto) 0 10 ^3/uL (0-0.2); Basophils % (auto) 0.2 % (0.0-2.0); Eosinophils # (auto) 0 10 ^3/uL (0-0.8); Hematocrit 28.7 % (41.0-53.0); Hemoglobin 9.1 g/dL (13.5-17.5); Lymphocytes # (auto) 0.2 10 ^3/uL (0.4-5.4); Lymphocytes % (auto) 5.5 % (10.0-50.0); Mean Corpuscular Hemoglobin 30.2 pg (28.0-32.0); Mean Corpuscular Hgb Conc. 31.7 g/dL (32.0-36.0); Mean Corpuscular Volume 95.4 fL (80.0-100.0); Monocytes # (auto) 0.3 10 ^3/uL (0-1.3); Neutrophils # (auto) 3.9 10 ^3/uL (1.6-8.6); Neutrophils % (auto) 88.3 % (37.0-80.0); Nucleated Red Blood Cells % 0.3 %; Platelet Count (auto) 146 10^3/uL (140-450); Red Blood Cells 3.01 10^6/uL (4.5-5.90); Red Cell Distribution Width 15.5 % (11.8-14.3); White Blood Cell 4.4 10^3/uL (4.4-10.8)
[2024-05-29 05:33] LABS: Alanine Aminotransferase 23 U/L (7-40); Alkaline Phosphatase 71 U/L (46-116); Anion Gap 15 (5-15); Aspartate Aminotransferase 50 U/L (13-40); BUN/Creatinine Ratio 24.4 (10.0-20.0); Blood Urea Nitrogen 79 mg/dL (9-23); Calcium 8.6 mg/dL (8.7-10.4); Carbon Dioxide 16 mmol/L (20-31); Chloride 113 mmol/L (98-107); Glucose 234 mg/dL (74-106); Potassium 5.2 mmol/L (3.5-5.1); Sodium 144 mmol/L (136-145)
[2024-05-29 05:34] LABS: Bilirubin, Total < 0.2 mg/dL (0.2-1.0); Total Protein 5.8 g/dL (5.7-8.2)
[2024-05-29] MEDS: FUROSEMIDE 40 MG/4 ML VIAL IV ONE (06:21)
[2024-05-29] MEDS: SODIUM ZIRCONIUM CYCL 10 GM PAK PO ONE (06:21)
--- NOTE | 2024-05-29 10:43 | DVHPN2 ---
Progress Note - Dictate Date Seen: May 29, 2024 Has the PT tested + for MRSA If YES, has PT been informed?: No Medical Necessity Reason Pt with a Central, PICC or Fol: Yes The following are medically ne: Wilson Catheter vital signs Vital Sign Date Time Temp Pulse Resp B/P (MAP) Pulse Ox O2 Delivery O2 Flow Rate FiO2 05/29/24 06:21 119/64 05/29/24 06:00 86 13 98 05/29/24 04:00 98.2 98.2 05/28/24 20:00 Nasal Cannula* 2 28 Total Intake and Output 05/28/24 05/28/24 05/29/24 15:00 23:00 07:00 Intake Total 284 ml 50 ml 817 ml Output Total 1350 ml 750 ml Balance 284 ml -1300 ml 67 ml medications Current Medications Medications Dose Ordered Sig/Eagle Route Start Time Stop Time Status Last Admin Dose Admin Sodium Chloride 10 ml Q8HR IV 05/27/24 06:00 05/29/24 05:44 10 ML Acetaminophen 650 mg Q6HP PRN PO 05/26/24 22:30 05/29/24 01:59 650 MG Vancomycin HCl 0 ml @ 0 mls/hr UD IV 05/26/24 22:45 Enoxaparin Sodium 30 mg DAILY SC 05/27/24 10:00 05/28/24 12:54 30 MG Lorazepam 1 mg ONCE PRN IV 05/26/24 23:15 Aspirin 81 mg DAILY PO 05/27/24 10:00 05/28/24 12:54 81 MG Diagnostic Test (Pha) 1 strip ACHS 05/27/24 07:00 05/29/24 06:30 1 STRIP Insulin Human Regular ACHS SC 05/27/24 07:00 05/29/24 06:31 6 UNITS Dextrose 50 ml UD PRN IV 05/27/24 00:00 Meropenem 50 ml @ 17 mls/hr Q12HR IV 05/27/24 10:00 05/28/24 21:00 17 MLS/HR Haloperidol Lactate 5 mg Q8HP PRN IM 05/27/24 13:45 05/28/24 03:14 5 MG Remdesivir 0 ml @ 0 mls/hr PER PHARMACY IV 05/28/24 08:00 05/30/24 08:01 Melatonin 5 mg HS PO 05/28/24 22:00 05/28/24 22:24 5 MG Remdesivir 100 mg/ Sodium Chloride 250 ml @ 250 mls/hr DAILY@1500 IV 05/29/24 15:00 05/30/24 15:59 Dexamethasone 4 mg DAILY PO 05/29/24 10:00 objective Frail elderly male Not intubated Lethargic but not in overt distress Abdomen is soft Left foot amputation Right [id number] amputation Wilson catheter clear yellow urine laboratory and microbiology Laboratory Tests 05/29/24 04:54 Test 05/29/24 04:54 Range/Units Serum Glucose 234 H 74-106 mg/dL Assessment/Plan Acute kidney injury multifactorial. hemodynamic + vancotoxicity Ckd unspecified sepsis due to OM of foot s/p Surgery foot amputation 05/28/24 Covid PNA CKF EF 25% BKA Anemia s/p Lasix today, UOP is responsive Vanco trough above target level recommend holding vanco until normalizes < UNDER 20 Strict Is&Os Currently on a fluid restriction Currently on remdesivir for treatment of COVID pneumonia. Given reduced GFR there is increased risk of kidney injury we will continue to monitor Avoid hypotension No emergent indication for dialysis at this time however requires close monitoring Plan discussed with: Patient ITZEL ORLANDO MD May 29, 2024 10:42
[2024-05-29] MEDS: DexAMETHasone 4 MG TAB PO SCH (11:26)
[2024-05-29] MEDS: REMDESIVIR 100mg in NS 230mL (3 DAY REGIMEN) IV SCH (17:13)
--- NOTE | 2024-05-29 21:03 | DVHPN2 ---
Subjective chart reviwed/no complaints Changes from previous H/P or p: No Changes Objective Vitals Vital Signs Date Time Temp Pulse Resp B/P (MAP) Pulse Ox O2 Delivery O2 Flow Rate FiO2 05/29/24 14:15 95 13 97 05/29/24 08:00 Nasal Cannula* 2 28 05/29/24 08:00 98.0 98.0 Intake/Output Intake and Output 05/29/24 07:00 Intake Total 1151 ml Output Total 2100 ml Balance -949 ml Intake Oral 800 ml IV Total 351 ml Output Urine Total 2100 ml General Appearance: Alert, Cooperative, No acute distress Lungs: Clear to auscultation Cardiovascular: Regular rate, Normal S1, Normal S2 Abdomen: Normal bowel sounds, Soft Musculoskeletal: Normal sensory function, Normal motor function Neuro: Normal speech, Strength at 5/5 X4 ext, Normal tone, Sensation intact, C ranial nerves 3-12 NL Medications Current Medications Medications Dose Ordered Sig/Eagle Route Start Time Stop Time Status Last Admin Dose Admin Sodium Chloride 10 ml Q8HR IV 05/27/24 06:00 05/29/24 17:12 10 ML Acetaminophen 650 mg Q6HP PRN PO 05/26/24 22:30 05/29/24 01:59 650 MG Vancomycin HCl 0 ml @ 0 mls/hr UD IV 05/26/24 22:45 Enoxaparin Sodium 30 mg DAILY SC 05/27/24 10:00 05/29/24 11:27 30 MG Lorazepam 1 mg ONCE PRN IV 05/26/24 23:15 Aspirin 81 mg DAILY PO 05/27/24 10:00 05/29/24 11:26 81 MG Diagnostic Test (Pha) 1 strip ACHS 05/27/24 07:00 05/29/24 17:13 1 STRIP Insulin Human Regular ACHS SC 05/27/24 07:00 05/29/24 18:11 3 UNITS Dextrose 50 ml UD PRN IV 05/27/24 00:00 Meropenem 50 ml @ 17 mls/hr Q12HR IV 05/27/24 10:00 05/29/24 11:27 17 MLS/HR Haloperidol Lactate 5 mg Q8HP PRN IM 05/27/24 13:45 05/28/24 03:14 5 MG Remdesivir 0 ml @ 0 mls/hr PER PHARMACY IV 05/28/24 08:00 05/30/24 08:01 Melatonin 5 mg HS PO 05/28/24 22:00 05/28/24 22:24 5 MG Remdesivir 100 mg/ Sodium Chloride 250 ml @ 250 mls/hr DAILY@1500 IV 05/29/24 15:00 05/30/24 15:59 05/29/24 17:13 250 MLS/HR Dexamethasone 4 mg DAILY PO 05/29/24 10:00 05/29/24 11:26 4 MG Laboratory Results Laboratory Tests 05/29/24 04:54 Chemistry Test 05/29/24 04:54 Albumin 3.0 g/dL (3.2-4.8) L Calcium Level 8.6 mg/dL (8.7-10.4) L Total Protein 5.8 g/dL (5.7-8.2) LFT Test 05/29/24 04:54 Alanine Aminotransferase (ALT) 23 U/L (7-40) Alkaline Phosphatase 71 U/L (46-116) Aspartate Amino Transferase (AST) 50 U/L (13-40) H Total Bilirubin < 0.2 mg/dL (0.2-1.0) L Urinalysis Test 05/27/24 05:00 Urine Color Light-red (Yellow) Urine Clarity Ex.turbid (Clear) Urine pH 5.5 (5.0-9.0) Urine Specific [place] 1.013 (1.001-1.035) Urine Protein 2+ (Negative) H Urine Ketones Trace (Negative) Urine Blood 3+ /uL (Negative) H Urine Nitrite Negative (Negative) Urine Bilirubin Negative (Negative) Urine Urobilinogen Normal mg/dL (Negative) Urine Leukocyte Esterase 3+ /uL (Negative) Urine RBC 2720 /hpf (0 - 3) Urine WBC 306 /hpf (0 - 3) Urine Squamous Epithelial Cells None seen /hpf (<5) Urine Bacteria None seen /hpf (None Seen) Urine Glucose 1+ mg/dL (Normal) H Microbiology Microbiology Date/Time Source Procedure Growth Status 05/28/24 03:00 Nose MRSA Screen - Final Complete 05/27/24 14:25 Blood Blood Culture - Preliminary NO GROWTH AFTER 48 HOURS OF INCUBATION. 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 covid positive/urti-pulse ox at 98 % -much better/non candidate for remdesvir due to gfr/also respiratory failure preceded covid- was from aspiration at [facility] secondary to vasomotor nephropathy dm dvt prophylaxis metabolic encephalopathy improved Plan discussed with: Patient, Other My Orders Orders - CANDIDO HOBBS MD Procedure Category Date Status Time Cleanse Wound With LISANDRO 05/29/24 In Process Wound Clean 10:30 * Dietary Consult CONS 05/29/24 Transmitted 18:29 Date of Service: May 29, 2024 Billing Provider: CANDIDO HOBBS MD Common Visit Codes: [id number] INP/OBS CARE(HIGH) CANDIDO HOBBS MD May 29, 2024 21:03
--- NOTE | 2024-05-29 22:08 | DVHINCON2 ---
Date of service: May 29, 2024 Referring Physician Jennifer Wolf MD Reason for Consultation Acute hypoxic respiratory failure and COVID-19 infection History of Present Illness A 78-year-old man with past medical history of congestive heart failure, diabetes, CKD, recurrent urinary tract infections, and right BKA who was transferred here from [facility] on 05/26/24 due to metabolic encephalopathy. He was seen at [facility] on 05/18/24 for altered mental status. Pt was transferred to [facility] on 06/12/24, likely for care of left foot osteomyelitis. Patient reported low O2 sats ranging from 84 to 88, and on 3 liters oxygen on presentation. He was thus admitted for further care and pulmonary consultation is requested for evaluation and management due to these findings. Past Medical History Congestive heart failure, diabetes, CKD, recurrent urinary tract infections, and right BKA, Past Surgical History Right BKA Medications: Reviewed. Allergies: No known drug allergies. Family History: No family history of premature CAD. No family history of lung disorders. Social History: Nonsmoker. No alcohol or illicit drug use. Family History: Patient reports no known family medical history. Allergies: Coded Allergies: NO KNOWN ALLERGIES (Unverified , 05/27/24) Home Meds Unable to Obtain Active Prescriptions or Reported Meds Current Medications Current Medications Medications (Trade) Dose Ordered Sig/Eagle Route PRN Reason Start Time Stop Time Status Last Admin Remdesivir 100 mg/ Sodium Chloride 250 ml @ 250 mls/hr DAILY@1500 IV 05/29/24 15:00 05/29/24 21:02 DC 05/29/24 17:13 Dexamethasone (Decadron Tablet) 4 mg DAILY PO 05/29/24 10:00 05/29/24 11:26 Vital Signs Vital Signs Date Time Temp Pulse Resp B/P (MAP) Pulse Ox O2 Delivery O2 Flow Rate FiO2 05/29/24 20:00 93 05/29/24 18:45 17 98 05/29/24 17:15 98.0 98.0 05/29/24 08:00 Nasal Cannula* 2 28 Physical Exam Gen.: Patient lying in bed in no apparent distress. On supplemental oxygen. Head: Normocephalic, atraumatic. Eyes: EOMI/PERRLA. Ears: Normal hearing. Normal anatomy. Neck/trachea: Trachea midline, supple. Nose: Normal external anatomy. Mouth: Moist mucous membranes. Chest: Decreased air entry bilaterally. No wheezing or rhonchi. Cardiovascular: Positive S1, positive S2. Regular rate and rhythm. Abdomen: Positive bowel sounds in all 4 quadrants. Soft, non-tender, non- distended. : Deferred. Rectal: Deferred. Skin: Warm, dry. Intact. Extremities: 2+ radial pulses bilaterally. No lower extremity edema. Neuro: Awake, alert, oriented x3. No gross motor or sensory deficits. Cranial nerves II through XII intact. Gait not assessed. Labs/Diagnostic Data Labs Test 05/29/24 17:17 05/29/24 04:54 05/28/24 08:30 05/28/24 05:11 Range/Units POC Glucose 299 H 70-106 mg/dl White Blood Count 4.4 # 4.4-10.8 10^3/uL Red Blood Count 3.01 L 4.5-5.90 10^6/uL Hemoglobin 9.1 L 13.5-17.5 g/dL Hematocrit 28.7 L 41.0-53.0 % Mean Corpuscular Volume 95.4 80.0-100.0 fL Mean Corpuscular Hemoglobin 30.2 28.0-32.0 pg Mean Corpuscular Hemoglobin Concent 31.7 L 32.0-36.0 g/dL Red Cell Distribution Width 15.5 H 11.8-14.3 % Platelet Count 146 140-450 10^3/uL Mean Platelet Volume 11.6 H 6.9-10.8 fL Neutrophils (%) (Auto) 88.3 H 37.0-80.0 % Lymphocytes (%) (Auto) 5.5 L 10.0-50.0 % Monocytes (%) (Auto) 6.0 0.0-12.0 % Eosinophils (%) (Auto) 0.0 0.0-7.0 % Basophils (%) (Auto) 0.2 0.0-2.0 % Neutrophils # (Auto) 3.9 1.6-8.6 10 ^3/uL Lymphocytes # (Auto) 0.2 L 0.4-5.4 10 ^3/uL Monocytes # (Auto) 0.3 0-1.3 10 ^3/uL Eosinophils # (Auto) 0 0-0.8 10 ^3/uL Basophils # (Auto) 0 0-0.2 10 ^3/uL Nucleated Red Blood Cells 0.3 % Sodium Level 144 136-145 mmol/L Potassium Level 5.2 H 3.5-5.1 mmol/L Chloride Level 113 H 98-107 mmol/L Carbon Dioxide Level 16 L 20-31 mmol/L Anion Gap 15 5-15 Blood Urea Nitrogen 79 H 9-23 mg/dL Creatinine 3.24 H 0.700-1.30 mg/dL Glomerular Filtration Rate Calc 19 >90 mL/min BUN/Creatinine Ratio 24.4 H 10.0-20.0 Serum Glucose 234 H 74-106 mg/dL Calcium Level 8.6 L 8.7-10.4 mg/dL Total Bilirubin < 0.2 L 0.2-1.0 mg/dL Aspartate Amino Transferase (AST) 50 H 13-40 U/L Alanine Aminotransferase (ALT) 23 7-40 U/L Alkaline Phosphatase 71 46-116 U/L Total Protein 5.8 5.7-8.2 g/dL Albumin 3.0 L 3.2-4.8 g/dL Random Vancomycin Level 21.8 H 5-10 ug/mL Prothrombin Time 11.9 H 9.3-11.8 sec Prothrombin Time INR 1.13 0.9-1.15 Activated Partial Thromboplast Time 39.0 H 24.5-34.5 SEC Phosphorus Level 4.2 2.4-5.1 mg/dL Magnesium Level 1.9 1.6-2.6 mg/dL Test 05/27/24 23:40 05/27/24 14:45 05/27/24 14:37 05/27/24 05:00 Range/Units Influenza Type A Antigen Negative Negative Influenza Type B Antigen Negative Negative SARS-CoV-2 Antigen (Rapid) Positive *A NEGATIVE Blood Gas Specimen Type Arterial Blood Gas Sample Site Left brachial Blood Gas Patient Temperature 37.0 Arterial Blood Date Drawn [id number] Arterial Blood pH 7.360 7.350-7.450 Arterial Blood Partial Pressure CO2 22.0 L 35.0-48.0 mmHg Arterial Blood Partial Pressure O2 55.2 L 83.0-108.0 mmHg Arterial Blood HCO3 12.1 L 21.0-28.0 mmol/L Arterial Blood Oxygen Saturation 86.3 L 94.0-98.0 % Arterial Blood Base Excess -11.8 L -2.0-3.0 mmol/L Arterial Blood Oxyhemoglobin 85.4 L 94.0-98.0 % Arterial Blood Carboxyhemoglobin 0.5 0.5-1.5 % Arterial Blood Methemoglobin 0.5 0.0-1.5 % Lion Test N/a Blood Gas Total Hemoglobin 9.00 L 13.5-17.5 g/dL Blood Gas Liter Flow 4.00 Blood Gas Modality Nasal cannula FiO2 % 36.0 Lactic Acid Level 1.2 0.4-2.0 mmol/L Urine Color Light-red Yellow Urine Clarity Ex.turbid Clear Urine pH 5.5 5.0-9.0 Urine Specific [place] 1.013 1.001-1.035 Urine Protein 2+ H Negative Urine Ketones Trace Negative Urine Blood 3+ H Negative /uL Urine Nitrite Negative Negative Urine Bilirubin Negative Negative Urine Urobilinogen Normal Negative mg/dL Urine Leukocyte Esterase 3+ Negative /uL Urine RBC 2720 0 - 3 /hpf Urine WBC 306 0 - 3 /hpf Urine Squamous Epithelial Cells None seen <5 /hpf Urine Bacteria None seen None Seen /hpf Urine Glucose 1+ H Normal mg/dL Urine Opiates Screen Neg NEGATIVE Urine Fentanyl Screen Neg NEGATIVE Urine Barbiturates Screen Neg NEGATIVE Urine Phencyclidine Screen Neg NEGATIVE Urine Amphetamines Screen Neg NEGATIVE Urine Benzodiazepines Screen Neg NEGATIVE Urine Cocaine Screen Neg NEGATIVE Urine Cannabinoids Screen Neg NEGATIVE Test 05/26/24 23:15 Range/Units Hemoglobin A1c 6.4 H <5.7 % A1C B-Type Natriuretic Peptide 1347.78 0-100 pg/mL Triglycerides Level 129 < 150 mg/dL Cholesterol Level 102 < 200 mg/dL LDL Cholesterol 46 < 100 mg/dL HDL Cholesterol 32 L 40-59 mg/dL Vitamin B12 Level 1314 H 211-911 pg/mL Vitamin D 25-Hydroxy 40.8 30.0-100 ng/mL Folic Acid 28.30 >5.38 ng/mL Thyroid Stimulating Hormone (TSH) 1.70 0.55-4.78 uIU/mL Free Thyroxine (T4) Calculated 1.20 0.89-1.76 ng/dL Microbiology Date/Time Source Procedure Growth Status 05/28/24 03:00 Nose MRSA Screen - Final Complete 05/27/24 14:25 Blood Blood Culture - Preliminary NO GROWTH AFTER 48 HOURS OF INCUBATION. Resulted Assessment Impression: Acute hypoxic respiratory failure COVID-19 infection Metabolic encephalopathy Sepsis Plan: Supplemental oxygen, 2 LPM NC Titrate to keep O2 sats above 92%. Taper O2 as tolerated. Continue antibiotics - meropenem F/u cultures Incentive spirometry Remdesivir Vitamin supplementation Monitor renal function. Monitor electrolytes. Supplement as necessary. Monitor ins and outs. DVT prophylaxis. Prognosis: Poor given patient's multiple co-morbidities. Rest of plan per hospitalist and other consultants. Thank you Dr. Jennifer Wolf MD, for allowing me to participate in this p atient's care. Further recommendations will depend on the patient's clinical course. Please do not hesitate to contact me if you have any questions or concerns. This medical document was created using an electronic medical record system with [employer] dictation system. Although these documentations are being carefully reviewed, there may still be some phonetic and typographical changes. The errors are purely typographical, due to imperfection on the software program, and do not reflect any compromise in the patient's medical care. Plan discussed with: Other (VAMSI Jerez, MD Wolf) VANDANA TRACEY MD May 29, 2024 22:08
[2024-05-30] VITALS (19 sets, daily range): BP systolic 94–149; BP diastolic 50–73; PULSE 84–108; RESP 11–20; TEMP 97.4–98; O2SAT 94–100
[2024-05-30 05:20] LABS: Basophils # (auto) 0 10 ^3/uL (0-0.2); Basophils % (auto) 0.2 % (0.0-2.0); Eosinophils # (auto) 0 10 ^3/uL (0-0.8); Hematocrit 27.8 % (41.0-53.0); Hemoglobin 9.1 g/dL (13.5-17.5); Lymphocytes # (auto) 0.4 10 ^3/uL (0.4-5.4); Lymphocytes % (auto) 6.7 % (10.0-50.0); Mean Corpuscular Hemoglobin 30.1 pg (28.0-32.0); Mean Corpuscular Hgb Conc. 32.8 g/dL (32.0-36.0); Monocytes # (auto) 0.6 10 ^3/uL (0-1.3); Monocytes % (auto) 9.9 % (0.0-12.0); Neutrophils # (auto) 4.7 10 ^3/uL (1.6-8.6); Neutrophils % (auto) 83.2 % (37.0-80.0); Nucleated Red Blood Cells % 0.1 %; Platelet Count (auto) 160 10^3/uL (140-450); Red Blood Cells 3.02 10^6/uL (4.5-5.90); Red Cell Distribution Width 15.1 % (11.8-14.3); White Blood Cell 5.7 10^3/uL (4.4-10.8)
[2024-05-30 05:35] LABS: Chloride 110 mmol/L (98-107); Potassium 5.4 mmol/L (3.5-5.1); Sodium 139 mmol/L (136-145)
[2024-05-30 05:36] LABS: Anion Gap 12 (5-15); Calcium 8.7 mg/dL (8.7-10.4); Carbon Dioxide 17 mmol/L (20-31)
[2024-05-30 05:41] LABS: BUN/Creatinine Ratio 31.8 (10.0-20.0); Glucose 272 mg/dL (74-106)
[2024-05-30 05:53] LABS: Blood Urea Nitrogen 108 mg/dL (9-23)
[2024-05-30] MEDS: LACTATED RINGER'S 2,200 ML IV ONE (07:47)
--- NOTE | 2024-05-30 08:20 | DVHPNRES ---
Progress Note Date Seen: May 30, 2024 Resident Creating Document: HONG REBOLLAR RESIDENT Has the PT tested + for MRSA If YES, has PT been informed?: No Medical Necessity Reason Pt with a Central, PICC or Fol: Yes The following are medically ne: Wilson Catheter Subjective Review of Systems Review of Systems: HEENT:Normal (Oral mucosa dry), CVS:Normal, RESPIRATORY:Abnormal (On 4-6 L of nasal cannula oxygen, basal rales and crackles, diminished air entry.), GI:Normal (BS positive, negative for tenderness, guarding), :Normal (On Wilson's catheter), MSK:Abnormal (Right BKA clean stump noted. Left foot wound noted dressing clean.), NEURO:Abnormal (Alert, patient is disoriented most of the times patient could not answer any questions. Still having difficulty in eating solid foods. Aspiration precautions to continue. Continuous rehabilitation.) Patient reports: No new complaints, Feels better Changes from previous H/P or p: No Changes, Changes Objective vital signs Vital Sign Date Time Temp Pulse Resp B/P (MAP) Pulse Ox O2 Delivery O2 Flow Rate FiO2 05/30/24 07:00 84 12 115/61 (79) 05/30/24 06:00 97 05/30/24 04:00 98.0 98.0 05/29/24 20:00 Nasal Cannula* 2 28 Total Intake and Output 05/29/24 05/29/24 05/30/24 15:00 23:00 07:00 Intake Total 34 ml 550 ml 250 ml Output Total 2600 ml 1600 ml Balance 34 ml -2050 ml -1350 ml medications Current Medications Medications Dose Ordered Sig/Eagle Route Start Time Stop Time Status Last Admin Dose Admin Sodium Chloride 10 ml Q8HR IV 05/27/24 06:00 05/30/24 06:00 10 ML Acetaminophen 650 mg Q6HP PRN PO 05/26/24 22:30 05/29/24 01:59 650 MG Vancomycin HCl 0 ml @ 0 mls/hr UD IV 05/26/24 22:45 Enoxaparin Sodium 30 mg DAILY SC 05/27/24 10:00 05/29/24 11:27 30 MG Lorazepam 1 mg ONCE PRN IV 05/26/24 23:15 Aspirin 81 mg DAILY PO 05/27/24 10:00 05/29/24 11:26 81 MG Diagnostic Test (Pha) 1 strip ACHS 05/27/24 07:00 05/30/24 07:20 1 STRIP Insulin Human Regular ACHS SC 05/27/24 07:00 05/30/24 07:19 6 UNITS Dextrose 50 ml UD PRN IV 05/27/24 00:00 Meropenem 50 ml @ 17 mls/hr Q12HR IV 05/27/24 10:00 05/29/24 21:54 17 MLS/HR Haloperidol Lactate 5 mg Q8HP PRN IM 05/27/24 13:45 05/28/24 03:14 5 MG Melatonin 5 mg HS PO 05/28/24 22:00 05/29/24 21:55 5 MG Dexamethasone 4 mg DAILY PO 05/29/24 10:00 05/29/24 11:26 4 MG Insulin Glargine 5 units DAILY@1000 SC 05/30/24 10:00 UNV Examination Examination: GENERAL:Abnormal (Overlook 6, in distress, disoriented occasionally opening eyes), HEENT:Normal, NECK:Normal (JVD known elevated), LUNGS:Abnormal (On nasal cannula oxygen, diminished bilateral air entry, crackles), CVS:Normal, ABDOMEN:Normal, MSK:Abnormal (Right below-knee amputation, left foot wound), SKIN:Abnormal (Wound), NEURO:Abnormal (Opens eyes to voice, to pain stimulus patient is reactive, incoherent talk ? Aphasia. Can not complete full neurological assessment as patient is not able to follow instructions, grossly stable.) laboratory and microbiology Laboratory Tests 05/30/24 04:42 Test 05/30/24 04:42 Range/Units Serum Glucose 272 H 74-106 mg/dL Microbiology Date/Time Source Procedure Growth Status 05/28/24 03:00 Nose MRSA Screen - Final Complete 05/27/24 14:25 Blood Blood Culture - Preliminary NO GROWTH AFTER 48 HOURS OF INCUBATION. Resulted Labs and/or images reviewed: Labs reviewed by me, Image(s) reviewed by me Problem List/Assessment/Plan Problem List/Assessment/Plan Hospital Course: Mr. Vallejo, a 78-year-old male with a history of heart failure with a reduced ejection fraction of 25%, uncontrolled diabetes mellitus, CKD, recurrent UTIs, recurrent skin and soft tissue infection and right BKA, presents with metabolic encephalopathy and altered mental status, requiring supplemental oxygen and care for left foot osteomyelitis. Initially patient was admitted in [facility] initially 05/18/2024, was found for sepsis and initial treatment was done with IV antibiotics and patient was transferred to [facility] for optimum Care and close follow up with the Podiatry team. Status post TMA , back to the [facility] status. # metabolic vs toxic encephalopathy vs mixed: Improved continue delirium precautions # Multiple strokes prior CT brain scan: MRI and GABBIE pending # possible aspiration pneumonia: On broad-spectrum antibiotics, sputum culture pending. # COVID infection pointing towards viral pneumonia: with acute hypoxic respiratory failure started on remdesivir discontinued for worsening renal failure and oral steroid to continue. # Acute hypoxic respiratory failure , likely due to above complicated with congestive heart failure: Improving oxygenation with weaning as tolerated to keep the SpO2 of 94%, presumably on 1 L nasal cannula oxygen # right external carotid artery greater than 70% stenosis: Collaterals intact # MARYANA due to VMN # developing acute renal failure elevating creatinine: BUN rising, check input output closely. Declining urinary function. Follow closure I&O, infection control and hydration to continue. Nephrology on board. Appreciate input. # hyperkalemia around 5.4: Nephrology updated, 1 dose Lokelma and further follow up shows of improving potassium. Waiting for further input. # uremia: BUN in 100s, severely elevated, nephrology on board, look for uremic encephalopathy pericarditis or any other ominous sign. # baseline vascular dementia: likely worsening in recent times, unknown exact baseline as no reference received. # questionable CKD: stage undetermined, given longstanding diabetes. No known baseline. # Left foot osteomyelitis with overlying skin and soft tissue infection: status post TMA by Podiatry, culture growing, continue IV meropenem and vancomycin. # osteomyelitis needing surgical amputation by Podiatry on left foot: Continue antibiotics, wound care to be continued. # Likely UTI, could be hospital-acquired, from recent hospitalization: Culture to follow, antibiotics to continue. # Sepsis secondary due to UTI, osteomyelitis and COVID: continue antibiotics and held antivirals. Workup otherwise negative. # anemia of chronic disease: Likely due to CKD/multifactorial, poor nutrition: Daily CBC, transfusion threshold 7. # Diabetes mellitus well controlled, 6.4 HbA1c: patient on diet, target BG 140- 180 mg per dL. High-protein diet to continue, multivitamins to help axillary healing, BG still elevated, added Lantus 5 uptitrate as tolerated # DVT prophylaxis: significant Britany score, subcutaneous Lovenox to continue for now for prophylactic dose. close follow up with CBC and platelet count. # Diet: bedside swallow evaluation, aspiration precautions, continue feeding, advanced as tolerated. Case discussed with Dr. Hayes. Barriers to discharge: Ongoing medical treatment. remains in the [facility]. Tomorrow we will consider downgrading the patient to telemetry floor. Code status: Power of regulatory attorney, next kin Madhu Wright discussed over phone [phone]. Complex patient care discussion needed total 39 minutes. so far patient is modified code status with DNR/do not resuscitate along with intubation trial. Plan discussed with: Patient, Other My Orders My Orders Orders - HONG REBOLLAR RESIDENT Procedure Category Date Status Time Potassium LAB 05/30/24 Logged 12:13 Insulin R (Human) PHA 05/30/24 Logged (Insulin R) 08:15 Dextrose 50% Syringe PHA 05/30/24 Logged 08:15 Furosemide Injection PHA 05/30/24 Logged (Lasix Injection) 08:15 Sodium Zirconium PHA 05/30/24 Logged Cyclosilicate 08:15 Insulin Lantus PHA 05/30/24 Logged (Glargine) (Lantus) 10:00 Dietary Evaluation Review Comments: 1. Consider adding CCHO 60g, Renal restriction to diet 2. Consider adding Garrett BID (180kcal, 5g pro) for wound healing Expected Outcomes/Goals: 1. Pt will consume >7% of estimated needs in 3-5 days Labs/Diagnostic Data Laboratory Tests Test 05/30/24 06:22 05/30/24 04:42 05/30/24 00:31 05/29/24 23:41 Range/Units POC Glucose 281 H 252 H 359 H 70-106 mg/dl White Blood Count 5.7 # 4.4-10.8 10^3/uL Red Blood Count 3.02 L 4.5-5.90 10^6/uL Hemoglobin 9.1 L 13.5-17.5 g/dL Hematocrit 27.8 L 41.0-53.0 % Mean Corpuscular Volume 92.0 80.0-100.0 fL Mean Corpuscular Hemoglobin 30.1 28.0-32.0 pg Mean Corpuscular Hemoglobin Concent 32.8 32.0-36.0 g/dL Red Cell Distribution Width 15.1 H 11.8-14.3 % Platelet Count 160 140-450 10^3/uL Mean Platelet Volume 11.8 H 6.9-10.8 fL Neutrophils (%) (Auto) 83.2 H 37.0-80.0 % Lymphocytes (%) (Auto) 6.7 L 10.0-50.0 % Monocytes (%) (Auto) 9.9 0.0-12.0 % Eosinophils (%) (Auto) 0.0 0.0-7.0 % Basophils (%) (Auto) 0.2 0.0-2.0 % Neutrophils # (Auto) 4.7 1.6-8.6 10 ^3/uL Lymphocytes # (Auto) 0.4 0.4-5.4 10 ^3/uL Monocytes # (Auto) 0.6 0-1.3 10 ^3/uL Eosinophils # (Auto) 0 0-0.8 10 ^3/uL Basophils # (Auto) 0 0-0.2 10 ^3/uL Nucleated Red Blood Cells 0.1 % Sodium Level 139 # 136-145 mmol/L Potassium Level 5.4 H 3.5-5.1 mmol/L Chloride Level 110 H 98-107 mmol/L Carbon Dioxide Level 17 L 20-31 mmol/L Anion Gap 12 5-15 Blood Urea Nitrogen 108 #*H 9-23 mg/dL Creatinine 3.40 H 0.700-1.30 mg/dL Glomerular Filtration Rate Calc 18 >90 mL/min BUN/Creatinine Ratio 31.8 H 10.0-20.0 Serum Glucose 272 H 74-106 mg/dL Calcium Level 8.7 8.7-10.4 mg/dL Vancomycin Level Trough 21.9 H 5-10 ug/mL Test 05/29/24 22:18 05/29/24 17:17 05/29/24 11:40 Range/Units POC Glucose 451 *H 299 H 380 H 70-106 mg/dl Microbiology Date/Time Source Procedure Growth Status 05/28/24 03:00 Nose MRSA Screen - Final Complete 05/27/24 14:25 Blood Blood Culture - Preliminary NO GROWTH AFTER 48 HOURS OF INCUBATION. Resulted HONG REBOLLAR RESIDENT May 30, 2024 08:20
[2024-05-30] MEDS: DEXTROSE (50%) 50ML SYRG IV ONE (09:07)
[2024-05-30] MEDS: SODIUM ZIRCONIUM CYCL 10 GM PAK PO ONE (09:08)
[2024-05-30] MEDS: FUROSEMIDE 20 MG/2 ML VIAL IV ONE (09:09)
[2024-05-30] MEDS: INSULIN LANTUS (GLARGINE) 1 /0.01ml (100units/ml) SC SCH (09:09)
[2024-05-30] MEDS: InsuLIN REG 1unit/0.01ml Soln (100units/ml) IV ONE (09:43)
--- NOTE | 2024-05-30 16:06 | DVHPN2 ---
Progress Note - Dictate Date Seen: May 30, 2024 Has the PT tested + for MRSA If YES, has PT been informed?: No Medical Necessity Reason Pt with a Central, PICC or Fol: Yes The following are medically ne: Wilson Catheter Subjective 4L UOP with lasix today vital signs Vital Sign Date Time Temp Pulse Resp B/P (MAP) Pulse Ox O2 Delivery O2 Flow Rate FiO2 05/30/24 12:00 99 05/30/24 12:00 97.8 13 101/50 (67) 97 97.8 05/30/24 08:00 Nasal Cannula* 2 28 Total Intake and Output 05/29/24 05/29/24 05/30/24 15:00 23:00 07:00 Intake Total 34 ml 550 ml 250 ml Output Total 2600 ml 1600 ml Balance 34 ml -2050 ml -1350 ml medications Current Medications Medications Dose Ordered Sig/Eagle Route Start Time Stop Time Status Last Admin Dose Admin Sodium Chloride 10 ml Q8HR IV 05/27/24 06:00 05/30/24 15:15 10 ML Acetaminophen 650 mg Q6HP PRN PO 05/26/24 22:30 05/29/24 01:59 650 MG Vancomycin HCl 0 ml @ 0 mls/hr UD IV 05/26/24 22:45 Enoxaparin Sodium 30 mg DAILY SC 05/27/24 10:00 05/30/24 09:08 30 MG Lorazepam 1 mg ONCE PRN IV 05/26/24 23:15 Aspirin 81 mg DAILY PO 05/27/24 10:00 05/30/24 11:39 81 MG Diagnostic Test (Pha) 1 strip ACHS 05/27/24 07:00 05/30/24 11:36 1 STRIP Insulin Human Regular ACHS SC 05/27/24 07:00 05/30/24 11:54 4 UNITS Dextrose 50 ml UD PRN IV 05/27/24 00:00 Meropenem 50 ml @ 17 mls/hr Q12HR IV 05/27/24 10:00 05/30/24 09:08 17 MLS/HR Melatonin 5 mg HS PO 05/28/24 22:00 05/29/24 21:55 5 MG Dexamethasone 4 mg DAILY PO 05/29/24 10:00 05/30/24 11:39 4 MG Insulin Glargine 5 units DAILY@1000 SC 05/30/24 10:00 05/30/24 09:09 5 UNITS objective Frail elderly male Not intubated Lethargic but not in overt distress Abdomen is soft Left foot amputation Right [id number] amputation Wilson catheter clear yellow urine laboratory and microbiology Laboratory Tests 05/30/24 14:10 05/30/24 04:42 Test 05/30/24 04:42 Range/Units Serum Glucose 272 H 74-106 mg/dL Assessment/Plan Acute kidney injury multifactorial. hemodynamic + vancotoxicity Ckd unspecified sepsis due to OM of foot s/p Surgery foot amputation 05/28/24 Covid PNA CKF EF 25% BKA Anemia s/p hyperkalemia treatment completed rising BUN likely due to decadron, rec taper when pulm exam improves s/p Lasix today, UOP is responsive Vanco trough above target level recommend holding vanco until normalizes < UNDER 20 Strict Is&Os Currently on a fluid restriction s/p remdesivir for treatment of COVID pneumonia. Given reduced GFR there is increased risk of kidney injury we will continue to monitor Avoid hypotension No emergent indication for dialysis at this time however requires close monitoring Dietary Evaluation Review Comments: 1. Consider adding CCHO 60g, Renal restriction to diet 2. Consider adding Garrett BID (180kcal, 5g pro) for wound healing Expected Outcomes/Goals: 1. Pt will consume >7% of estimated needs in 3-5 days Plan discussed with: Patient ITZEL ORLANDO MD May 30, 2024 16:06
[2024-05-30] MEDS: SODIUM ZIRCONIUM CYCL 10 GM PAK PO SCH (18:01)
--- NOTE | 2024-05-30 21:35 | DVHPN2 ---
Progress Note - Dictate Date Seen: May 30, 2024 Has the PT tested + for MRSA If YES, has PT been informed?: No Medical Necessity Reason Pt with a Central, PICC or Fol: Yes The following are medically ne: Lujan Catheter Reason for lujan catheter: Strict I&O Subjective Patient seen and examined at bedside. Breathing comfortably on room air. Overnight events reviewed. vital signs Vital Sign Date Time Temp Pulse Resp B/P (MAP) Pulse Ox O2 Delivery O2 Flow Rate FiO2 05/30/24 20:00 88 13 96 Nasal Cannula* 1 05/30/24 19:00 109/55 (73) 05/30/24 16:00 97.9 97.9 Total Intake and Output 05/29/24 05/29/24 05/30/24 15:00 23:00 07:00 Intake Total 34 ml 550 ml 250 ml Output Total 2600 ml 1600 ml Balance 34 ml -2050 ml -1350 ml medications Current Medications Medications Dose Ordered Sig/Eagle Route Start Time Stop Time Status Last Admin Dose Admin Sodium Chloride 10 ml Q8HR IV 05/27/24 06:00 05/30/24 15:15 10 ML Acetaminophen 650 mg Q6HP PRN PO 05/26/24 22:30 05/29/24 01:59 650 MG Vancomycin HCl 0 ml @ 0 mls/hr UD IV 05/26/24 22:45 Enoxaparin Sodium 30 mg DAILY SC 05/27/24 10:00 05/30/24 09:08 30 MG Lorazepam 1 mg ONCE PRN IV 05/26/24 23:15 Aspirin 81 mg DAILY PO 05/27/24 10:00 05/30/24 11:39 81 MG Diagnostic Test (Pha) 1 strip ACHS 05/27/24 07:00 05/30/24 16:55 1 STRIP Insulin Human Regular ACHS SC 05/27/24 07:00 05/30/24 17:41 6 UNITS Dextrose 50 ml UD PRN IV 05/27/24 00:00 Meropenem 50 ml @ 17 mls/hr Q12HR IV 05/27/24 10:00 05/30/24 09:08 17 MLS/HR Melatonin 5 mg HS PO 05/28/24 22:00 05/29/24 21:55 5 MG Dexamethasone 4 mg DAILY PO 05/29/24 10:00 05/30/24 11:39 4 MG Insulin Glargine 5 units DAILY@1000 SC 05/30/24 10:00 05/30/24 09:09 5 UNITS Zirconium Oxide 10 gm TID PO 05/30/24 18:00 05/31/24 06:01 05/30/24 18:01 10 GM objective Gen.: Patient lying in bed in no apparent distress. Breathing on room air. Head: Normocephalic, atraumatic. Eyes: EOMI/PERRLA. Ears: Normal hearing. Normal anatomy. Neck/trachea: Trachea midline, supple. Nose: Normal external anatomy. Mouth: Moist mucous membranes. Chest: Decreased air entry bilaterally. No wheezing or rhonchi. Cardiovascular: Positive S1, positive S2. Regular rate and rhythm. Abdomen: Positive bowel sounds in all 4 quadrants. Soft, non-tender, non- distended. : Deferred. Rectal: Deferred. Skin: Warm, dry. Intact. Extremities: 2+ radial pulses bilaterally. No lower extremity edema. Neuro: Awake, alert, oriented x3. No gross motor or sensory deficits. Cranial nerves II through XII intact. Gait not assessed. laboratory and microbiology Laboratory Tests 05/30/24 14:10 05/30/24 04:42 Test 05/30/24 04:42 Range/Units Serum Glucose 272 H 74-106 mg/dL Assessment/Plan Impression: Acute hypoxic respiratory failure COVID-19 infection Metabolic encephalopathy Sepsis Events: Breathing on room air No respiratory distress. IS. Continue abx Continue steroids - Decadron Remdesivir course. Labs and imaging reviewed. Rest of plan as noted below. Plan: Supplemental oxygen PRN Titrate to keep O2 sats above 92%. Continue antibiotics - meropenem F/u cultures Incentive spirometry Remdesivir Vitamin supplementation Monitor renal function. Monitor electrolytes. Supplement as necessary. Monitor ins and outs. DVT prophylaxis. Prognosis: Poor given patient's multiple co-morbidities. Rest of plan per hospitalist and other consultants. Thank you Dr. Jennifer Wolf MD, for allowing me to participate in this patient's care. Further recommendations will depend on the patient's clinical course. Please do not hesitate to contact me if you have any questions or concerns. This medical document was created using an electronic medical record system with [employer] system. Although these documentations are being carefully reviewed, there may still be some phonetic and typographical changes. The errors are purely typographical, due to imperfection on the software program, and do not reflect any compromise in the patient's medical care. Dietary Evaluation Review Comments: 1. Consider adding CCHO 60g, Renal restriction to diet 2. Consider adding Garrett BID (180kcal, 5g pro) for wound healing Expected Outcomes/Goals: 1. Pt will consume >7% of estimated needs in 3-5 days Plan discussed with: Patient, Other (VAMSI Blanchard) VANDANA TRACEY MD May 30, 2024 21:35
[2024-05-31] VITALS (26 sets, daily range): BP systolic 101–145; BP diastolic 45–81; PULSE 80–102; RESP 12–24; TEMP 97.6–99; O2SAT 94–100
[2024-05-31 05:31] LABS: Basophils # (auto) 0 10 ^3/uL (0-0.2); Basophils % (auto) 0.1 % (0.0-2.0); Eosinophils # (auto) 0 10 ^3/uL (0-0.8); Hematocrit 28.1 % (41.0-53.0); Hemoglobin 9.3 g/dL (13.5-17.5); Lymphocytes # (auto) 0.7 10 ^3/uL (0.4-5.4); Lymphocytes % (auto) 10.8 % (10.0-50.0); Mean Corpuscular Hemoglobin 29.7 pg (28.0-32.0); Mean Corpuscular Hgb Conc. 32.9 g/dL (32.0-36.0); Mean Corpuscular Volume 90.4 fL (80.0-100.0); Monocytes # (auto) 0.9 10 ^3/uL (0-1.3); Monocytes % (auto) 13.8 % (0.0-12.0); Neutrophils # (auto) 4.8 10 ^3/uL (1.6-8.6); Neutrophils % (auto) 75.3 % (37.0-80.0); Nucleated Red Blood Cells % 0.3 %; Platelet Count (auto) 174 10^3/uL (140-450); Red Blood Cells 3.11 10^6/uL (4.5-5.90); Red Cell Distribution Width 14.9 % (11.8-14.3); White Blood Cell 6.3 10^3/uL (4.4-10.8)
[2024-05-31 05:36] LABS: Chloride 109 mmol/L (98-107); Potassium 4.8 mmol/L (3.5-5.1); Sodium 139 mmol/L (136-145)
[2024-05-31 05:37] LABS: Anion Gap 12 (5-15); Calcium 8.7 mg/dL (8.7-10.4); Carbon Dioxide 18 mmol/L (20-31)
[2024-05-31 05:42] LABS: BUN/Creatinine Ratio 33.9 (10.0-20.0)
[2024-05-31 05:54] LABS: Blood Urea Nitrogen 105 mg/dL (9-23); Glucose 154 mg/dL (74-106)
[2024-05-31 10:09] LABS: COVID19 ANTIGEN SOFIA FIA POSITIVE (NEGATIVE)
[2024-05-31] MEDS: POLYETHYLENE GLYCOL 17 GM PWDR PO ONE (10:21)
[2024-05-31] MEDS: metroNIDAZOLE 500MG/100ML 100 ML IV SCH (15:09)
--- NOTE | 2024-05-31 15:59 | DVHPNRES ---
Progress Note Date Seen: May 31, 2024 Resident Creating Document: AIDA MORILLO RESIDENT Has the PT tested + for MRSA If YES, has PT been informed?: No Medical Necessity Reason Pt with a Central, PICC or Fol: Yes The following are medically ne: Lujan Catheter Reason for lujan catheter: Strict I&O Subjective Review of Systems Patient was seen and examined at bedside. He is alert and oriented x2, currently on room air, vital signs are stable. Denies any significant chest pain, shortness of breath, abdominal pain, he passes swallow evaluation and he is tolerating diet. BUN is is 105 today, we discontinue dexamethasone, vancomycin. Wound culture without any bacterial growth. We deescalated Merrem to cefepime, Flagyl IV, and doxycycline. Creatinine came down from 3.40 3.1, GFR is trending up currently at 20. Unable to perform brain MRI or GABBIE given current COVID 19 positive. Objective vital signs Vital Sign Date Time Temp Pulse Resp B/P (MAP) Pulse Ox O2 Delivery O2 Flow Rate FiO2 05/31/24 14:00 12 98 Room Air* 0 21 05/31/24 14:00 84 05/31/24 11:00 117/55 (75) 05/31/24 07:00 98.1 98.1 Total Intake and Output 05/30/24 05/30/24 05/31/24 15:00 23:00 07:00 Intake Total 50 ml 767 ml 483 ml Output Total 1525 ml 1100 ml Balance 50 ml -758 ml -617 ml medications Current Medications Medications Dose Ordered Sig/Eagle Route Start Time Stop Time Status Last Admin Dose Admin Sodium Chloride 10 ml Q8HR IV 05/27/24 06:00 05/31/24 15:09 10 ML Acetaminophen 650 mg Q6HP PRN PO 05/26/24 22:30 05/29/24 01:59 650 MG Enoxaparin Sodium 30 mg DAILY SC 05/27/24 10:00 05/31/24 10:22 30 MG Lorazepam 1 mg ONCE PRN IV 05/26/24 23:15 Aspirin 81 mg DAILY PO 05/27/24 10:00 05/31/24 10:22 81 MG Diagnostic Test (Pha) 1 strip ACHS 05/27/24 07:00 05/31/24 10:23 1 STRIP Insulin Human Regular ACHS SC 05/27/24 07:00 05/31/24 10:44 3 UNITS Dextrose 50 ml UD PRN IV 05/27/24 00:00 Melatonin 5 mg HS PO 05/28/24 22:00 05/30/24 22:04 5 MG Insulin Glargine 5 units DAILY@1000 SC 05/30/24 10:00 05/31/24 10:43 5 UNITS Doxycycline Monohydrate 100 mg Q12HR PO 05/31/24 22:00 Cefepime HCl 50 ml @ 12.5 mls/hr DAILY IV 06/01/24 10:00 Metronidazole 100 ml @ 100 mls/hr Q8HR IV 05/31/24 14:00 05/31/24 15:09 100 MLS/HR Examination General: Alert and oriented x2, comfortable appearing, in no acute distress. HEENT: Head is normocephalic and atraumatic. Pupils are equal, round, and reactive to light. Extraocular muscles are intact. No nasal discharge. No facial trauma. Intraoral exam shows moist mucous membranes with no tonsillar enlargement or exudate. Neck: Supple with no cervical lymphadenopathy No meningismus. No goiter. Heart: Regular rate without murmur, rub, or gallop. Lungs: Scattered crackles, no wheezing Abdomen: No external sign of injury. Bowel sounds are present. Abdomen is soft, nontender. No rebound, no guarding, no rigidity. There are no palpable masses. There is no flank pain on exam. Extremities: Strong peripheral pulses. There is no clubbing, no cyanosis, and no edema. Skin: Right below-knee amputation, left foot dressing due to amputation Neurologic: Opens eyes to voice, to pain stimulus patient is reactive. Can not complete full neurological assessment as patient is not able to follow instructions, grossly stable. laboratory and microbiology Laboratory Tests 05/31/24 05:15 Test 05/31/24 05:15 Range/Units Serum Glucose 154 #H 74-106 mg/dL Microbiology Date/Time Source Procedure Growth Status 05/28/24 03:00 Nose MRSA Screen - Final Complete 05/27/24 14:25 Blood Blood Culture - Preliminary NO GROWTH AFTER 72 HOURS OF INCUBATION. Resulted Labs and/or images reviewed: Labs reviewed by me, Image(s) reviewed by me Problem List/Assessment/Plan Problem List/Assessment/Plan # metabolic vs toxic encephalopathy vs mixed Improving, continue delirium precautions Likely related to underlying infection # Multiple strokes prior CT brain scan # baseline vascular dementia likely worsening in recent times, unknown exact baseline as no reference received. MRI and GABBIE pending, can not be done due to current COVID-19 infection # possible aspiration pneumonia Gram-positive versus Gram-negative On broad-spectrum antibiotics, sputum culture with no growth # COVID-19 infection with viral pneumonia: remdesivir discontinued for worsening renal failure and oral steroid discontinued as patient is currently on room air # Acute hypoxic respiratory failure , likely due to above complicated with congestive heart failure Improving oxygenation with weaning as tolerated to keep the SpO2 of >92%, currently on room air # MARYANA due to VMN # questionable CKD stage undetermined, given longstanding diabetes. No known baseline. Discontinue dexamethasone, vancomycin Continue to monitor Nephrology on board BUN rising, check input output closely. Declining urinary function. Follow closure I&O, infection control and hydration to continue. # hyperkalemia, Improved Continue to monitor # uremia BUN in 100s, severely elevated, nephrology on board # Left foot osteomyelitis with overlying skin and soft tissue infection versus gangrene due to peripheral arterial disease status post TMA by Podiatry, culture with no growth, discontinue IV meropenem and vancomycin. Continue cefepime, doxycycline and Flagyl # UTI, could be hospital-acquired, from recent hospitalization Continue broad-spectrum antibiotics # Sepsis secondary due to UTI, osteomyelitis and COVID-19 continue antibiotics and held antivirals. Workup otherwise negative. # anemia of chronic disease Likely due to CKD/multifactorial, poor nutrition # Diabetes mellitus well controlled, 6.4 HbA1c patient on diet, target BG 140-180 mg per dL. High-protein diet to continue, multivitamins to help axillary healing, Continue Lantus 5 uptitrate as tolerated # right external carotid artery greater than 70% stenosis Collaterals intact # DVT prophylaxis Prophylactic Lovenox # Diet: bedside swallow evaluation passed, aspiration precautions, continue feeding, advanced as tolerated. Goals of care were discussed for 30 minutes. Modified code. Case discussed with Dr. Vazquez Plan discussed with: Other (RN) My Orders My Orders Orders - AIDA MORILLO Procedure Category Date Status Time Doxycycline Tablet PHA 05/31/24 In Process (Vibramycin Tablet) 22:00 Cefepime 1gm/ 50ml PHA 06/01/24 In Process (Maxipime 1gm/50ml) 10:00 Metronidazole PHA 05/31/24 In Process 500mg/100ml (Flagyl 14:00 Transfer Orders XFER 05/31/24 Transmitted 11:31 Dietary Evaluation Review Comments: 1. Consider adding CCHO 60g, Renal restriction to diet 2. Consider adding Garrett BID (180kcal, 5g pro) for wound healing Expected Outcomes/Goals: 1. Pt will consume >7% of estimated needs in 3-5 days Date of Service: May 31, 2024 Billing Provider: RIA ORNELAS MD Common Visit Codes: [id number] INP/OBS CARE(HIGH) AIDA MORILLO RESIDENT May 31, 2024 15:59 RIA ORNELAS MD Jun 02, 2024 22:59
--- NOTE | 2024-05-31 16:53 | DVHPN2 ---
Progress Note Date Seen: May 31, 2024 Has the PT tested + for MRSA If YES, has PT been informed?: No Medical Necessity Reason Pt with a Central, PICC or Fol: Yes The following are medically ne: Lujan Catheter Reason for lujan catheter: Strict I&O Subjective Patient reports: No new complaints, Other Objective vital signs Vital Sign Date Time Temp Pulse Resp B/P (MAP) Pulse Ox O2 Delivery O2 Flow Rate FiO2 05/31/24 16:00 82 05/31/24 16:00 12 99 Room Air* 0 21 05/31/24 11:00 117/55 (75) 05/31/24 07:00 98.1 98.1 Total Intake and Output 05/30/24 05/30/24 05/31/24 15:00 23:00 07:00 Intake Total 50 ml 767 ml 483 ml Output Total 1525 ml 1100 ml Balance 50 ml -758 ml -617 ml medications Current Medications Medications Dose Ordered Sig/Eagle Route Start Time Stop Time Status Last Admin Dose Admin Sodium Chloride 10 ml Q8HR IV 05/27/24 06:00 05/31/24 15:09 10 ML Acetaminophen 650 mg Q6HP PRN PO 05/26/24 22:30 05/29/24 01:59 650 MG Enoxaparin Sodium 30 mg DAILY SC 05/27/24 10:00 05/31/24 10:22 30 MG Lorazepam 1 mg ONCE PRN IV 05/26/24 23:15 Aspirin 81 mg DAILY PO 05/27/24 10:00 05/31/24 10:22 81 MG Diagnostic Test (Pha) 1 strip ACHS 05/27/24 07:00 05/31/24 10:23 1 STRIP Insulin Human Regular ACHS SC 05/27/24 07:00 05/31/24 10:44 3 UNITS Dextrose 50 ml UD PRN IV 05/27/24 00:00 Melatonin 5 mg HS PO 05/28/24 22:00 05/30/24 22:04 5 MG Insulin Glargine 5 units DAILY@1000 SC 05/30/24 10:00 05/31/24 10:43 5 UNITS Doxycycline Monohydrate 100 mg Q12HR PO 05/31/24 22:00 Cefepime HCl 50 ml @ 12.5 mls/hr DAILY IV 06/01/24 10:00 Metronidazole 100 ml @ 100 mls/hr Q8HR IV 05/31/24 14:00 05/31/24 15:09 100 MLS/HR Examination: GENERAL:Normal, LUNGS:Abnormal laboratory and microbiology Laboratory Tests 05/31/24 05:15 Test 05/31/24 05:15 Range/Units Serum Glucose 154 #H 74-106 mg/dL Microbiology Date/Time Source Procedure Growth Status 05/28/24 03:00 Nose MRSA Screen - Final Complete 05/27/24 14:25 Blood Blood Culture - Preliminary NO GROWTH AFTER 72 HOURS OF INCUBATION. Resulted Problem List/Assessment/Plan Problem List/Assessment/Plan Acute kidney injury multifactorial. hemodynamic + vancotoxicity Ckd unspecified sepsis due to OM of foot s/p Surgery foot amputation 05/28/24 Covid PNA CKF EF 25% BKA Anemia recs good uop steroids held on Room air renal function worse Plan discussed with: Patient Dietary Evaluation Review Comments: 1. Consider adding CCHO 60g, Renal restriction to diet 2. Consider adding Garrett BID (180kcal, 5g pro) for wound healing Expected Outcomes/Goals: 1. Pt will consume >7% of estimated needs in 3-5 days POLY DAILEY MD May 31, 2024 16:53
[2024-05-31] MEDS: DOXYCYCLINE 100 MG TAB/CAP PO SCH (21:19)
--- NOTE | 2024-05-31 22:22 | DVHPN2 ---
Progress Note - Dictate Date Seen: May 31, 2024 Has the PT tested + for MRSA If YES, has PT been informed?: No Medical Necessity Reason Pt with a Central, PICC or Fol: Yes The following are medically ne: Lujan Catheter Reason for lujan catheter: Strict I&O Subjective Patient seen and examined at bedside. Breathing comfortably on room air. Overnight events reviewed. vital signs Vital Sign Date Time Temp Pulse Resp B/P (MAP) Pulse Ox O2 Delivery O2 Flow Rate FiO2 05/31/24 22:01 87 17 111/47 (68) 98 05/31/24 22:00 Room Air* 0 21 05/31/24 19:48 99.0 99.0 Total Intake and Output 05/30/24 05/30/24 05/31/24 15:00 23:00 07:00 Intake Total 50 ml 767 ml 483 ml Output Total 1525 ml 1100 ml Balance 50 ml -758 ml -617 ml medications Current Medications Medications Dose Ordered Sig/Eagle Route Start Time Stop Time Status Last Admin Dose Admin Sodium Chloride 10 ml Q8HR IV 05/27/24 06:00 05/31/24 21:20 10 ML Acetaminophen 650 mg Q6HP PRN PO 05/26/24 22:30 05/29/24 01:59 650 MG Enoxaparin Sodium 30 mg DAILY SC 05/27/24 10:00 05/31/24 10:22 30 MG Lorazepam 1 mg ONCE PRN IV 05/26/24 23:15 Aspirin 81 mg DAILY PO 05/27/24 10:00 05/31/24 10:22 81 MG Diagnostic Test (Pha) 1 strip ACHS 05/27/24 07:00 05/31/24 21:20 1 STRIP Insulin Human Regular ACHS SC 05/27/24 07:00 05/31/24 21:34 4 UNITS Dextrose 50 ml UD PRN IV 05/27/24 00:00 Melatonin 5 mg HS PO 05/28/24 22:00 05/31/24 21:19 5 MG Insulin Glargine 5 units DAILY@1000 SC 05/30/24 10:00 05/31/24 10:43 5 UNITS Doxycycline Monohydrate 100 mg Q12HR PO 05/31/24 22:00 05/31/24 21:19 100 MG Cefepime HCl 50 ml @ 12.5 mls/hr DAILY IV 06/01/24 10:00 Metronidazole 100 ml @ 100 mls/hr Q8HR IV 05/31/24 14:00 05/31/24 21:20 100 MLS/HR objective Gen.: Patient lying in bed in no apparent distress. Breathing on room air. Head: Normocephalic, atraumatic. Eyes: EOMI/PERRLA. Ears: Normal hearing. Normal anatomy. Neck/trachea: Trachea midline, supple. Nose: Normal external anatomy. Mouth: Moist mucous membranes. Chest: Decreased air entry bilaterally. No wheezing or rhonchi. Cardiovascular: Positive S1, positive S2. Regular rate and rhythm. Abdomen: Positive bowel sounds in all 4 quadrants. Soft, non-tender, non- distended. : Deferred. Rectal: Deferred. Skin: Warm, dry. Intact. Extremities: 2+ radial pulses bilaterally. No lower extremity edema. Neuro: Awake, alert, oriented x3. No gross motor or sensory deficits. Cranial nerves II through XII intact. Gait not assessed. laboratory and microbiology Laboratory Tests 05/31/24 05:15 Test 05/31/24 05:15 Range/Units Serum Glucose 154 #H 74-106 mg/dL Assessment/Plan Impression: Acute hypoxic respiratory failure COVID-19 infection Metabolic encephalopathy Sepsis Events: Breathing on room air No respiratory distress. IS. Continue abx - Flagyl/doxycycline Continue steroids - Decadron Melatonin. Patient is stable for downgrade from the pulmonary standpoint. Labs and imaging reviewed. Rest of plan as noted below. Plan: Supplemental oxygen PRN Titrate to keep O2 sats above 92%. Continue antibiotics F/u cultures Incentive spirometry Remdesivir course Vitamin supplementation Monitor renal function. Monitor electrolytes. Supplement as necessary. Monitor ins and outs. DVT prophylaxis. Prognosis: Poor given patient's multiple co-morbidities. Rest of plan per hospitalist and other consultants. Thank you Dr. Jennifer Wolf MD, for allowing me to participate in this patient's care. Further recommendations will depend on the patient's clinical course. Please do not hesitate to contact me if you have any questions or concerns. This medical document was created using an electronic medical record system with [employer] system. Although these documentations are being carefully reviewed, there may still be some phonetic and typographical changes. The errors are purely typographical, due to imperfection on the software program, and do not reflect any compromise in the patient's medical care. Dietary Evaluation Review Comments: 1. Consider adding CCHO 60g, Renal restriction to diet 2. Consider adding Garrett BID (180kcal, 5g pro) for wound healing Expected Outcomes/Goals: 1. Pt will consume >7% of estimated needs in 3-5 days Plan discussed with: Patient, Other (VAMSI Costello) VANDANA TRACEY MD May 31, 2024 22:22
[2024-06-01] VITALS (25 sets, daily range): BP systolic 102–134; BP diastolic 37–85; PULSE 75–96; RESP 10–19; TEMP 97.4–98.4; O2SAT 92–100
[2024-06-01 06:02] LABS: Alanine Aminotransferase 39 U/L (7-40); Albumin 3.1 g/dL (3.2-4.8); Alkaline Phosphatase 77 U/L (46-116); Anion Gap 10 (5-15); Aspartate Aminotransferase 62 U/L (13-40); Calcium 8.3 mg/dL (8.7-10.4); Carbon Dioxide 21 mmol/L (20-31); Chloride 108 mmol/L (98-107); Glucose 123 mg/dL (74-106); Potassium 4.4 mmol/L (3.5-5.1); Sodium 139 mmol/L (136-145)
[2024-06-01 06:03] LABS: Bilirubin, Total 0.3 mg/dL (0.2-1.0); Total Protein 6.1 g/dL (5.7-8.2)
[2024-06-01 06:11] LABS: CRP High Sensitivity 3.79 mg/dL (<1.0)
[2024-06-01 06:20] LABS: Blood Urea Nitrogen 100 mg/dL (9-23)
[2024-06-01] MEDS: LACTATED RINGER'S 1,000 ML IV ONE (10:56)
[2024-06-01] MEDS: CEFEPIME 1GM/ 50ML 50 ML IV SCH (10:56)
[2024-06-01] MEDS: Glucerna Carbsteady SHAKE Stawberry 8oz PO SCH (12:00)
--- NOTE | 2024-06-01 13:50 | DVHPNRES ---
Progress Note Date Seen: Jun 01, 2024 Resident Creating Document: AIDA MORILLO RESIDENT Has the PT tested + for MRSA If YES, has PT been informed?: No Medical Necessity Reason Pt with a Central, PICC or Fol: Yes The following are medically ne: Lujan Catheter Reason for lujan catheter: Strict I&O Subjective Review of Systems Patient was seen and examined at bedside. He is alert and oriented x3, currently on room air, vital signs are stable. Denies any significant chest pain, shortness of breath, abdominal pain, he is tolerating diet. BUN is coming down, 100 today, avoid nephrotoxic agents Wound culture without any bacterial growth. We continue cefepime and Flagyl IV, and DC doxycycline. Creatinine coming down, at 2.78, GFR is trending up currently at 23. Unable to perform brain MRI or GABBIE given current COVID 19 positive. Ordered 1 L of LR 50ml/hr Requested PT Prescribed glucerna Objective vital signs Vital Sign Date Time Temp Pulse Resp B/P (MAP) Pulse Ox O2 Delivery O2 Flow Rate FiO2 06/01/24 12:00 12 100 Room Air* 0 21 06/01/24 12:00 75 06/01/24 12:00 97.8 118/67 (84) 97.8 Total Intake and Output 05/31/24 05/31/24 06/01/24 15:00 23:00 07:00 Intake Total 1800 ml 200 ml 800 ml Output Total 750 ml 600 ml 1100 ml Balance 1050 ml -400 ml -300 ml medications Current Medications Medications Dose Ordered Sig/Eagle Route Start Time Stop Time Status Last Admin Dose Admin Sodium Chloride 10 ml Q8HR IV 05/27/24 06:00 06/01/24 06:00 10 ML Acetaminophen 650 mg Q6HP PRN PO 05/26/24 22:30 05/29/24 01:59 650 MG Enoxaparin Sodium 30 mg DAILY SC 05/27/24 10:00 06/01/24 10:57 30 MG Lorazepam 1 mg ONCE PRN IV 05/26/24 23:15 Aspirin 81 mg DAILY PO 05/27/24 10:00 06/01/24 10:56 81 MG Diagnostic Test (Pha) 1 strip ACHS 05/27/24 07:00 06/01/24 10:59 1 STRIP Insulin Human Regular ACHS SC 05/27/24 07:00 06/01/24 11:01 4 UNITS Dextrose 50 ml UD PRN IV 05/27/24 00:00 Melatonin 5 mg HS PO 05/28/24 22:00 05/31/24 21:19 5 MG Insulin Glargine 5 units DAILY@1000 SC 05/30/24 10:00 06/01/24 11:12 5 UNITS Cefepime HCl 50 ml @ 12.5 mls/hr DAILY IV 06/01/24 10:00 06/01/24 10:56 12.5 MLS/HR Metronidazole 100 ml @ 100 mls/hr Q8HR IV 05/31/24 14:00 06/01/24 06:39 100 MLS/HR Enteral Nutritional Formula 240 ml BIDWM PO 06/01/24 12:00 Examination General: Alert and oriented x3, comfortable appearing, in no acute distress. HEENT: Head is normocephalic and atraumatic. Pupils are equal, round, and reactive to light. Extraocular muscles are intact. No nasal discharge. No facial trauma. Intraoral exam shows moist mucous membranes with no tonsillar enlargement or exudate. Neck: Supple with no cervical lymphadenopathy No meningismus. No goiter. Heart: Regular rate without murmur, rub, or gallop. Lungs: Scattered crackles, no wheezing Abdomen: No external sign of injury. Bowel sounds are present. Abdomen is soft, nontender. No rebound, no guarding, no rigidity. There are no palpable masses. There is no flank pain on exam. Extremities: Strong peripheral pulses. There is no clubbing, no cyanosis, and no edema. Skin: Right below-knee amputation, left foot dressing due to amputation Neurologic: grossly stable. laboratory and microbiology Laboratory Tests 06/01/24 05:07 05/31/24 05:15 Test 06/01/24 05:07 Range/Units Serum Glucose 123 H 74-106 mg/dL Microbiology Date/Time Source Procedure Growth Status 05/28/24 03:00 Nose MRSA Screen - Final Complete 05/27/24 14:25 Blood Blood Culture - Preliminary NO GROWTH AFTER 72 HOURS OF INCUBATION. Resulted Labs and/or images reviewed: Labs reviewed by me, Image(s) reviewed by me Problem List/Assessment/Plan Problem List/Assessment/Plan # metabolic vs toxic encephalopathy vs mixed Improving, continue delirium precautions Likely related to underlying infection # Multiple strokes prior CT brain scan # baseline vascular dementia likely worsening in recent times, unknown exact baseline as no reference received. MRI and GABBIE pending, can not be done due to current COVID-19 infection # possible aspiration pneumonia Gram-positive versus Gram-negative On broad-spectrum antibiotics, sputum culture with no growth # COVID-19 infection with viral pneumonia: remdesivir discontinued for worsening renal failure and oral steroid discontinued as patient is currently on room air # Acute hypoxic respiratory failure , likely due to above complicated with congestive heart failure Improving oxygenation with weaning as tolerated to keep the SpO2 of >92%, currently on room air # MARYANA due to VMN # questionable CKD stage undetermined, given longstanding diabetes. No known baseline. Avoid nephrotoxic agents Continue to monitor Nephrology on board BUN rising, check input output closely. Declining urinary function. Follow closure I&O, infection control and hydration to continue. 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 Workup otherwise negative. # anemia of chronic disease Likely due to CKD/multifactorial, poor nutrition # Diabetes mellitus well controlled, 6.4 HbA1c patient on diet, target BG 140-180 mg per dL. High-protein diet to continue, multivitamins to help axillary healing, Continue Lantus 5 U # right external carotid artery greater than 70% stenosis Collaterals intact # DVT prophylaxis Prophylactic Lovenox # Diet: soft mechanical diet Goals of care were discussed for 30 minutes. Modified code. Case discussed with Dr. Vazquez Plan discussed with: Patient, Other (RN) My Orders My Orders Orders - AIDA MORILLO RESIDENT Procedure Category Date Status Time Nutritional PHA 06/01/24 In Process Supplements (Glucerna 12:00 Mechanical Soft Diet DIET 06/01/24 Transmitted Lunch Lactated Ringer's PHA 06/01/24 In Process 09:45 Pt Request For Service PT 06/01/24 Logged 12:29 Dietary Evaluation Review Comments: 1. Consider adding CCHO 60g, Renal restriction to diet 2. Consider adding Garrett BID (180kcal, 5g pro) for wound healing Expected Outcomes/Goals: 1. Pt will consume >7% of estimated needs in 3-5 days Date of Service: Jun 01, 2024 Billing Provider: RIA ORNELAS MD Common Visit Codes: [id number] INP/OBS CARE(HIGH) AIDA MORILLO RESIDENT Jun 01, 2024 13:50 RIA ORNELAS MD Jun 02, 2024 22:51
--- NOTE | 2024-06-01 14:43 | DVHPN2 ---
Progress Note Date Seen: Jun 01, 2024 Has the PT tested + for MRSA If YES, has PT been informed?: No Medical Necessity Reason Pt with a Central, PICC or Fol: No The following are medically ne: Lujan Catheter Reason for lujan catheter: Strict I&O Subjective Patient reports: No new complaints Review of Systems: Deferred Objective vital signs Vital Sign Date Time Temp Pulse Resp B/P (MAP) Pulse Ox O2 Delivery O2 Flow Rate FiO2 06/01/24 14:00 89 06/01/24 14:00 13 99 Room Air* 0 21 06/01/24 12:00 97.8 118/67 (84) 97.8 Total Intake and Output 05/31/24 05/31/24 06/01/24 15:00 23:00 07:00 Intake Total 1800 ml 200 ml 800 ml Output Total 750 ml 600 ml 1100 ml Balance 1050 ml -400 ml -300 ml medications Current Medications Medications Dose Ordered Sig/Eagle Route Start Time Stop Time Status Last Admin Dose Admin Sodium Chloride 10 ml Q8HR IV 05/27/24 06:00 06/01/24 06:00 10 ML Acetaminophen 650 mg Q6HP PRN PO 05/26/24 22:30 05/29/24 01:59 650 MG Enoxaparin Sodium 30 mg DAILY SC 05/27/24 10:00 06/01/24 10:57 30 MG Lorazepam 1 mg ONCE PRN IV 05/26/24 23:15 Aspirin 81 mg DAILY PO 05/27/24 10:00 06/01/24 10:56 81 MG Diagnostic Test (Pha) 1 strip ACHS 05/27/24 07:00 06/01/24 10:59 1 STRIP Insulin Human Regular ACHS SC 05/27/24 07:00 06/01/24 11:01 4 UNITS Dextrose 50 ml UD PRN IV 05/27/24 00:00 Melatonin 5 mg HS PO 05/28/24 22:00 05/31/24 21:19 5 MG Insulin Glargine 5 units DAILY@1000 SC 05/30/24 10:00 06/01/24 11:12 5 UNITS Cefepime HCl 50 ml @ 12.5 mls/hr DAILY IV 06/01/24 10:00 06/01/24 10:56 12.5 MLS/HR Metronidazole 100 ml @ 100 mls/hr Q8HR IV 05/31/24 14:00 06/01/24 06:39 100 MLS/HR Enteral Nutritional Formula 240 ml BIDWM PO 06/01/24 12:00 Examination: GENERAL:Normal, LUNGS:Normal, NEURO:Normal laboratory and microbiology Laboratory Tests 06/01/24 05:07 05/31/24 05:15 Test 06/01/24 05:07 Range/Units Serum Glucose 123 H 74-106 mg/dL Microbiology Date/Time Source Procedure Growth Status 05/28/24 03:00 Nose MRSA Screen - Final Complete 05/27/24 14:25 Blood Blood Culture - Preliminary NO GROWTH AFTER 72 HOURS OF INCUBATION. Resulted Problem List/Assessment/Plan Problem List/Assessment/Plan Acute kidney injury multifactorial. hemodynamic + vancotoxicity Ckd unspecified sepsis due to OM of foot s/p Surgery foot amputation 05/28/24 Covid PNA CKF EF 25% BKA Anemia recs good uop steroids held on Room air 1L LR iv Plan discussed with: Other Dietary Evaluation Review Comments: 1. Consider adding CCHO 60g, Renal restriction to diet 2. Consider adding Garrett BID (180kcal, 5g pro) for wound healing Expected Outcomes/Goals: 1. Pt will consume >7% of estimated needs in 3-5 days POLY DAILEY MD Jun 01, 2024 14:43
--- NOTE | 2024-06-01 21:12 | DVHPN2 ---
Progress Note - Dictate Date Seen: Jun 01, 2024 Has the PT tested + for MRSA If YES, has PT been informed?: No Medical Necessity Reason Pt with a Central, PICC or Fol: Yes The following are medically ne: Lujan Catheter Reason for lujan catheter: Strict I&O Subjective Patient seen and examined at bedside. Breathing comfortably on room air. Overnight events reviewed. vital signs Vital Sign Date Time Temp Pulse Resp B/P (MAP) Pulse Ox O2 Delivery O2 Flow Rate FiO2 06/01/24 20:00 95 06/01/24 20:00 13 100 Room Air* 0 21 06/01/24 20:00 97.7 104/39 (60) 97.7 Total Intake and Output 05/31/24 05/31/24 06/01/24 15:00 23:00 07:00 Intake Total 1800 ml 200 ml 800 ml Output Total 750 ml 600 ml 1100 ml Balance 1050 ml -400 ml -300 ml medications Current Medications Medications Dose Ordered Sig/Eagle Route Start Time Stop Time Status Last Admin Dose Admin Sodium Chloride 10 ml Q8HR IV 05/27/24 06:00 06/01/24 06:00 10 ML Acetaminophen 650 mg Q6HP PRN PO 05/26/24 22:30 05/29/24 01:59 650 MG Enoxaparin Sodium 30 mg DAILY SC 05/27/24 10:00 06/01/24 10:57 30 MG Lorazepam 1 mg ONCE PRN IV 05/26/24 23:15 Aspirin 81 mg DAILY PO 05/27/24 10:00 06/01/24 10:56 81 MG Diagnostic Test (Pha) 1 strip ACHS 05/27/24 07:00 06/01/24 17:00 1 STRIP Insulin Human Regular ACHS SC 05/27/24 07:00 06/01/24 17:00 4 UNITS Dextrose 50 ml UD PRN IV 05/27/24 00:00 Melatonin 5 mg HS PO 05/28/24 22:00 05/31/24 21:19 5 MG Insulin Glargine 5 units DAILY@1000 SC 05/30/24 10:00 06/01/24 11:12 5 UNITS Cefepime HCl 50 ml @ 12.5 mls/hr DAILY IV 06/01/24 10:00 06/01/24 10:56 12.5 MLS/HR Metronidazole 100 ml @ 100 mls/hr Q8HR IV 05/31/24 14:00 06/01/24 14:00 100 MLS/HR Enteral Nutritional Formula 240 ml BIDWM PO 06/01/24 12:00 06/01/24 18:00 240 ML objective Gen.: Patient lying in bed in no apparent distress. Breathing on room air. Head: Normocephalic, atraumatic. Eyes: EOMI/PERRLA. Ears: Normal hearing. Normal anatomy. Neck/trachea: Trachea midline, supple. Nose: Normal external anatomy. Mouth: Moist mucous membranes. Chest: Decreased air entry bilaterally. No wheezing or rhonchi. Cardiovascular: Positive S1, positive S2. Regular rate and rhythm. Abdomen: Positive bowel sounds in all 4 quadrants. Soft, non-tender, non- distended. : Deferred. Rectal: Deferred. Skin: Warm, dry. Intact. Extremities: 2+ radial pulses bilaterally. No lower extremity edema. Neuro: Awake, alert, oriented x3. No gross motor or sensory deficits. Cranial nerves II through XII intact. Gait not assessed. laboratory and microbiology Laboratory Tests 06/01/24 05:07 05/31/24 05:15 Test 06/01/24 05:07 Range/Units Serum Glucose 123 H 74-106 mg/dL Assessment/Plan Impression: Acute hypoxic respiratory failure COVID-19 infection Metabolic encephalopathy Sepsis Events: Breathing on room air No respiratory distress. IS. On antibiotics - metronidazole/cefepime Discontinued Remdesivir and Decadron due to renal failure. De-escalated abx. Melatonin. Patient is stable for downgrade from the pulmonary standpoint. Labs and imaging reviewed. Rest of plan as noted below. Plan: Supplemental oxygen PRN Titrate to keep O2 sats above 92%. Continue antibiotics F/u cultures Incentive spirometry Remdesivir course - DC'd due to renal failure Vitamin supplementation Monitor renal function. Monitor electrolytes. Supplement as necessary. Monitor ins and outs. DVT prophylaxis. Prognosis: Poor given patient's multiple co-morbidities. Rest of plan per hospitalist and other consultants. Thank you Dr. Jennifer Wolf MD, for allowing me to participate in this patient's care. Further recommendations will depend on the patient's clinical course. Please do not hesitate to contact me if you have any questions or concerns. This medical document was created using an electronic medical record system with [employer] dictation system. Although these documentations are being carefully reviewed, there may still be some phonetic and typographical changes. The errors are purely typographical, due to imperfection on the software program, and do not reflect any compromise in the patient's medical care. Dietary Evaluation Review Comments: 1. Consider adding CCHO 60g, Renal restriction to diet 2. Consider adding Garrett BID (180kcal, 5g pro) for wound healing Expected Outcomes/Goals: 1. Pt will consume >7% of estimated needs in 3-5 days Plan discussed with: Patient, Other (RN Karol) VANDANA TRACEY MD Jun 01, 2024 21:12
[2024-06-02] VITALS: BP 125/28; PULSE 94; PULSE 98; RESP 13; RESP 16; TEMP 97.9; O2SAT 98
[2024-06-02 05:00] VITALS: BP 112/61; PULSE 86; RESP 19; TEMP 97.8; O2SAT 99
[2024-06-02 07:08] LABS: Basophils # (auto) 0 10 ^3/uL (0-0.2); Eosinophils # (auto) 0 10 ^3/uL (0-0.8); Eosinophils % (auto) 0.5 % (0.0-7.0); Hematocrit 27.9 % (41.0-53.0); Hemoglobin 9.2 g/dL (13.5-17.5); Lymphocytes # (auto) 1.8 10 ^3/uL (0.4-5.4); Lymphocytes % (auto) 22.2 % (10.0-50.0); Mean Corpuscular Hemoglobin 29.8 pg (28.0-32.0); Mean Corpuscular Hgb Conc. 33.1 g/dL (32.0-36.0); Mean Corpuscular Volume 90.2 fL (80.0-100.0); Monocytes # (auto) 0.9 10 ^3/uL (0-1.3); Monocytes % (auto) 11.3 % (0.0-12.0); Neutrophils # (auto) 5.2 10 ^3/uL (1.6-8.6); Nucleated Red Blood Cells % 0.1 %; Platelet Count (auto) 155 10^3/uL (140-450); Red Blood Cells 3.09 10^6/uL (4.5-5.90); White Blood Cell 7.9 10^3/uL (4.4-10.8)
[2024-06-02 07:17] LABS: Calcium 8.5 mg/dL (8.7-10.4); Chloride 110 mmol/L (98-107); Potassium 4.7 mmol/L (3.5-5.1); Sodium 141 mmol/L (136-145)
[2024-06-02 07:18] LABS: Anion Gap 10 (5-15); Carbon Dioxide 21 mmol/L (20-31)
[2024-06-02 07:23] LABS: Glucose 82 mg/dL (74-106)
[2024-06-02 07:31] LABS: Blood Urea Nitrogen 88 mg/dL (9-23)
[2024-06-02 09:00] VITALS: BP 111/61; PULSE 62; RESP 20; TEMP 97.5; O2SAT 97
--- NOTE | 2024-06-02 09:31 | DVH ---
EXAM: CT HEAD WITHOUT CONTRAST HISTORY: AMS COMPARISON: None TECHNIQUE: Axial images of the head were obtained and reformatted in coronal and sagittal planes. All CT scans at this medical facility are performed using dose modulation techniques as appropriate t o a performed exam including the following: Automated exposure control was utilized; adjustment of th e MA and/or KV according to patient size; and use of iterative reconstruction technique. CT Dose: CTDI volume is 59.97 mGy. Dose-length product is 1181.8 mGy*cm FINDINGS: There are chronic infarcts in the bilateral posterior cerebellum with associated encephalomalacia. Th ere is also a small chronic infarct in the superior medial right frontal lobe. There are hypodense ar eas in the supratentorial white matter compatible with moderate chronic microvascular ischemic change s. There is likely small chronic lacunar infarct in the left singh radiata. There is no evidence of acute intracranial hemorrhage, mass, mass effect midline shift. There is no h ydrocephalus or extra-axial fluid collection. The visualized paranasal sinuses and mastoid air cells are clear. The calvarium is intact. IMPRESSION: 1. No acute intracranial process. 2. Multiple chronic infarcts as noted above. HS:Y
[2024-06-02 13:00] VITALS: BP 117/49; PULSE 91; RESP 19; TEMP 98.1; O2SAT 97
[2024-06-02] MEDS: INSULIN LANTUS (GLARGINE) 1 /0.01ml (100units/ml) SC ONE (15:59)
--- NOTE | 2024-06-02 16:12 | DVHPN2 ---
Progress Note Date Seen: Jun 02, 2024 Has the PT tested + for MRSA If YES, has PT been informed?: No Medical Necessity Reason Pt with a Central, PICC or Fol: Yes The following are medically ne: Lujan Catheter Reason for lujan catheter: Strict I&O Subjective Patient reports: No new complaints Review of Systems: HEENT:Normal, CVS:Normal, RESPIRATORY:Normal, GI:Normal, :Normal, MSK:Normal, NEURO:Normal Objective vital signs Vital Sign Date Time Temp Pulse Resp B/P (MAP) Pulse Ox O2 Delivery O2 Flow Rate FiO2 06/02/24 09:00 97.5 62 20 111/61 (78) 97 97.5 06/02/24 07:50 Room Air* 0 21 Total Intake and Output 06/01/24 06/01/24 06/02/24 15:00 23:00 07:00 Intake Total 1380.0 ml 1140 ml 100 ml Output Total 1275 ml 1650 ml Balance 1380.0 ml -135 ml -1550 ml medications Current Medications Medications Dose Ordered Sig/Eagle Route Start Time Stop Time Status Last Admin Dose Admin Sodium Chloride 10 ml Q8HR IV 05/27/24 06:00 06/02/24 14:26 10 ML Acetaminophen 650 mg Q6HP PRN PO 05/26/24 22:30 06/02/24 08:38 650 MG Enoxaparin Sodium 30 mg DAILY SC 05/27/24 10:00 06/02/24 10:44 30 MG Lorazepam 1 mg ONCE PRN IV 05/26/24 23:15 Aspirin 81 mg DAILY PO 05/27/24 10:00 06/02/24 10:44 81 MG Diagnostic Test (Pha) 1 strip ACHS 05/27/24 07:00 06/02/24 11:16 1 STRIP Insulin Human Regular ACHS SC 05/27/24 07:00 06/02/24 11:19 4 UNITS Dextrose 50 ml UD PRN IV 05/27/24 00:00 Melatonin 5 mg HS PO 05/28/24 22:00 06/01/24 21:46 5 MG Cefepime HCl 50 ml @ 12.5 mls/hr DAILY IV 06/01/24 10:00 06/02/24 10:44 12.5 MLS/HR Metronidazole 100 ml @ 100 mls/hr Q8HR IV 05/31/24 14:00 06/02/24 05:44 100 MLS/HR Enteral Nutritional Formula 240 ml BIDWM PO 06/01/24 12:00 06/02/24 08:24 240 ML Insulin Glargine 12 units DAILY@1000 SC 06/03/24 10:00 laboratory and microbiology Laboratory Tests 06/02/24 05:51 Test 06/02/24 05:51 Range/Units Serum Glucose 82 74-106 mg/dL Microbiology Date/Time Source Procedure Growth Status 05/28/24 03:00 Nose MRSA Screen - Final Complete 05/27/24 14:25 Blood Blood Culture - Final NO GROWTH AFTER 5 DAYS OF INCUBATION. Complete Problem List/Assessment/Plan Problem List/Assessment/Plan Acute kidney injury multifactorial. hemodynamic + vancotoxicity Ckd unspecified sepsis due to OM of foot s/p Surgery foot amputation 05/28/24 Covid PNA CKF EF 25% BKA Anemia recs Renal function slowly improving on Room air Downgraded from TIGRE Plan discussed with: Patient Dietary Evaluation Review Comments: 1. Consider adding CCHO 60g, Renal restriction to diet 2. Consider adding Garrett BID (180kcal, 5g pro) for wound healing Expected Outcomes/Goals: 1. Pt will consume >7% of estimated needs in 3-5 days POLY DAILEY MD Jun 02, 2024 16:12
--- NOTE | 2024-06-02 16:57 | DVHPNRES ---
Progress Note Date Seen: Jun 02, 2024 Resident Creating Document: AIDA MORILLO RESIDENT Has the PT tested + for MRSA If YES, has PT been informed?: No Medical Necessity Reason Pt with a Central, PICC or Fol: Yes The following are medically ne: Lujan Catheter Reason for lujan catheter: Strict I&O Subjective Review of Systems Patient was seen and examined at bedside. He is alert and oriented x4, currently on room air, vital signs are stable. Denies any significant chest pain, shortness of breath, abdominal pain, he is tolerating diet. BUN is coming down, 88 today, avoid nephrotoxic agents Wound culture without any bacterial growth. We continue cefepime and Flagyl IV. Place order for midline. Placed SS consult for DC planning to SNF for PT and IV antibiotics Creatinine coming down, GFR is trending up currently at 25. Unable to perform brain MRI or GABBIE given current COVID [address] demonstrates multiple chronic strokes Continue PT Objective vital signs Vital Sign Date Time Temp Pulse Resp B/P (MAP) Pulse Ox O2 Delivery O2 Flow Rate FiO2 06/02/24 09:00 97.5 62 20 111/61 (78) 97 97.5 06/02/24 07:50 Room Air* 0 21 Total Intake and Output 06/01/24 06/01/24 06/02/24 15:00 23:00 07:00 Intake Total 1380.0 ml 1140 ml 100 ml Output Total 1275 ml 1650 ml Balance 1380.0 ml -135 ml -1550 ml medications Current Medications Medications Dose Ordered Sig/Eagle Route Start Time Stop Time Status Last Admin Dose Admin Sodium Chloride 10 ml Q8HR IV 05/27/24 06:00 06/02/24 14:26 10 ML Acetaminophen 650 mg Q6HP PRN PO 05/26/24 22:30 06/02/24 08:38 650 MG Enoxaparin Sodium 30 mg DAILY SC 05/27/24 10:00 06/02/24 10:44 30 MG Lorazepam 1 mg ONCE PRN IV 05/26/24 23:15 Aspirin 81 mg DAILY PO 05/27/24 10:00 06/02/24 10:44 81 MG Diagnostic Test (Pha) 1 strip ACHS 05/27/24 07:00 06/02/24 11:16 1 STRIP Insulin Human Regular ACHS SC 05/27/24 07:00 06/02/24 11:19 4 UNITS Dextrose 50 ml UD PRN IV 05/27/24 00:00 Melatonin 5 mg HS PO 05/28/24 22:00 06/01/24 21:46 5 MG Cefepime HCl 50 ml @ 12.5 mls/hr DAILY IV 06/01/24 10:00 06/02/24 10:44 12.5 MLS/HR Metronidazole 100 ml @ 100 mls/hr Q8HR IV 05/31/24 14:00 06/02/24 05:44 100 MLS/HR Enteral Nutritional Formula 240 ml BIDWM PO 06/01/24 12:00 06/02/24 08:24 240 ML Insulin Glargine 12 units DAILY@1000 SC 06/03/24 10:00 Examination General: Alert and oriented x4, comfortable appearing, in no acute distress. HEENT: Head is normocephalic and atraumatic. Pupils are equal, round, and reactive to light. Extraocular muscles are intact. No nasal discharge. No facial trauma. Intraoral exam shows moist mucous membranes with no tonsillar enlargement or exudate. Neck: Supple with no cervical lymphadenopathy No meningismus. No goiter. Heart: Regular rate without murmur, rub, or gallop. Lungs: Scattered crackles, no wheezing Abdomen: No external sign of injury. Bowel sounds are present. Abdomen is soft, nontender. No rebound, no guarding, no rigidity. There are no palpable masses. There is no flank pain on exam. Extremities: Strong peripheral pulses. There is no clubbing, no cyanosis, and no edema. Right below-knee amputation, left foot dressing due to amputation with clean dressing Skin: Nos rash Neurologic: grossly stable. laboratory and microbiology Laboratory Tests 06/02/24 05:51 Test 06/02/24 05:51 Range/Units Serum Glucose 82 74-106 mg/dL Microbiology Date/Time Source Procedure Growth Status 05/28/24 03:00 Nose MRSA Screen - Final Complete 05/27/24 14:25 Blood Blood Culture - Final NO GROWTH AFTER 5 DAYS OF INCUBATION. Complete Labs and/or images reviewed: Labs reviewed by me, Image(s) reviewed by me Problem List/Assessment/Plan Problem List/Assessment/Plan # metabolic vs toxic encephalopathy vs mixed Improving, continue delirium precautions Likely related to underlying infection # Multiple strokes prior CT brain scan # baseline vascular dementia likely worsening in recent times, unknown exact baseline as no reference received. MRI and GABBIE pending, can not be done due to current COVID-19 infection # possible aspiration pneumonia Gram-positive versus Gram-negative On broad-spectrum antibiotics, sputum culture with no growth # COVID-19 infection with viral pneumonia: remdesivir discontinued for worsening renal failure and oral steroid discontinued as patient is currently on room air # Acute hypoxic respiratory failure , likely due to above complicated with congestive heart failure Improving oxygenation with weaning as tolerated to keep the SpO2 of >92%, currently on room air # MARYANA due to VMN # questionable CKD stage undetermined, given longstanding diabetes. No known baseline. Avoid nephrotoxic agents Continue to monitor Nephrology on board BUN rising, check input output closely. Declining urinary function. Follow closure I&O, infection control and hydration to continue. GFR trending up # hyperkalemia, Improved Continue to monitor # uremia BUN in 80s, severely elevated, but trending down nephrology on board # Left foot osteomyelitis with overlying skin and soft tissue infection versus gangrene due to peripheral arterial disease status post TMA by Podiatry on 05/28/24, culture with no growth, Continue cefepime IV and Flagyl PO, # UTI, could be hospital-acquired, from recent hospitalization Continue broad-spectrum antibiotics # Sepsis secondary due to UTI, osteomyelitis and COVID-19 continue antibiotics and held antivirals. Workup otherwise negative. # anemia of chronic disease Likely due to CKD/multifactorial, poor nutrition # Diabetes mellitus well controlled, 6.4 HbA1c patient on diet, target BG 140-180 mg per dL. High-protein diet to continue, multivitamins to help axillary healing, Continue Lantus 12 U # right external carotid artery greater than 70% stenosis Collaterals intact # DVT prophylaxis Prophylactic Lovenox # Diet: soft mechanical diet administrative services manager consulted for DC planning to SNF for PT and IV antibiotics cefepime for 10 more days, will also send with flagyl po Goals of care were discussed for 23 minutes. Modified code. DNR with intubation trial Case discussed with Dr. Vazquez Plan discussed with: Patient, Other My Orders My Orders Orders - AIDA MORILLO Procedure Category Date Status Time Head Without Contrast CT 06/02/24 Resulted 08:05 * Digital Performance Analyst CONS 06/02/24 Transmitted Consult Insert Midline ORDERS 06/02/24 Transmitted 11:06 Insulin Lantus PHA 06/03/24 In Process (Glargine) (Lantus) 10:00 Code Status CODE 06/02/24 Transmitted 16:45 Modified Resuscitive CODE 06/02/24 Transmitted Measures D/C Sitter ORDERS 06/02/24 Transmitted 16:47 Transfer Orders XFER 06/02/24 Transmitted 16:48 Discontinue Tele LISANDRO 06/02/24 In Process 16:48 Complete Blood Count LAB 06/03/24 Verified 04:00 Basic Metabolic Panel LAB 06/03/24 Verified 04:00 Dietary Evaluation Review Comments: 1. Consider adding CCHO 60g, Renal restriction to diet 2. Consider adding Garrett BID (180kcal, 5g pro) for wound healing Expected Outcomes/Goals: 1. Pt will consume >7% of estimated needs in 3-5 days Date of Service: Jun 02, 2024 Billing Provider: RIA ORNELAS MD Common Visit Codes: [id number] INP/OBS CARE(HIGH) AIDA MORILLO RESIDENT Jun 02, 2024 16:57 RIA ORNELAS MD Jun 02, 2024 22:45
[2024-06-02 17:00] VITALS: BP 141/62; PULSE 83; RESP 19; TEMP 98.2; O2SAT 100
[2024-06-02 20:56] VITALS: BP 121/39; PULSE 88; RESP 18; TEMP 97.6; O2SAT 97
--- NOTE | 2024-06-02 21:35 | DVHPN2 ---
Progress Note - Dictate Date Seen: Jun 02, 2024 Has the PT tested + for MRSA If YES, has PT been informed?: No Medical Necessity Reason Pt with a Central, PICC or Fol: Yes The following are medically ne: Lujan Catheter Reason for lujan catheter: Strict I&O Subjective Patient seen and examined at bedside. Breathing comfortably on room air. Overnight events reviewed. vital signs Vital Sign Date Time Temp Pulse Resp B/P (MAP) Pulse Ox O2 Delivery O2 Flow Rate FiO2 06/02/24 20:56 97.6 88 18 121/39 (66) 97 97.6 06/02/24 07:50 Room Air* 0 21 Total Intake and Output 06/01/24 06/01/24 06/02/24 15:00 23:00 07:00 Intake Total 1380.0 ml 1140 ml 100 ml Output Total 1275 ml 1650 ml Balance 1380.0 ml -135 ml -1550 ml medications Current Medications Medications Dose Ordered Sig/Eagle Route Start Time Stop Time Status Last Admin Dose Admin Sodium Chloride 10 ml Q8HR IV 05/27/24 06:00 06/02/24 14:26 10 ML Acetaminophen 650 mg Q6HP PRN PO 05/26/24 22:30 06/02/24 08:38 650 MG Enoxaparin Sodium 30 mg DAILY SC 05/27/24 10:00 06/02/24 10:44 30 MG Lorazepam 1 mg ONCE PRN IV 05/26/24 23:15 Aspirin 81 mg DAILY PO 05/27/24 10:00 06/02/24 10:44 81 MG Diagnostic Test (Pha) 1 strip ACHS 05/27/24 07:00 06/02/24 17:12 1 STRIP Insulin Human Regular ACHS SC 05/27/24 07:00 06/02/24 11:19 4 UNITS Dextrose 50 ml UD PRN IV 05/27/24 00:00 Melatonin 5 mg HS PO 05/28/24 22:00 06/01/24 21:46 5 MG Cefepime HCl 50 ml @ 12.5 mls/hr DAILY IV 06/01/24 10:00 06/02/24 10:44 12.5 MLS/HR Metronidazole 100 ml @ 100 mls/hr Q8HR IV 05/31/24 14:00 06/02/24 05:44 100 MLS/HR Enteral Nutritional Formula 240 ml BIDWM PO 06/01/24 12:00 06/02/24 18:00 240 ML Insulin Glargine 12 units DAILY@1000 SC 06/03/24 10:00 objective Gen.: Patient lying in bed in no apparent distress. Breathing on room air. Head: Normocephalic, atraumatic. Eyes: EOMI/PERRLA. Ears: Normal hearing. Normal anatomy. Neck/trachea: Trachea midline, supple. Nose: Normal external anatomy. Mouth: Moist mucous membranes. Chest: Decreased air entry bilaterally. No wheezing or rhonchi. Cardiovascular: Positive S1, positive S2. Regular rate and rhythm. Abdomen: Positive bowel sounds in all 4 quadrants. Soft, non-tender, non- distended. : Deferred. Rectal: Deferred. Skin: Warm, dry. Intact. Extremities: 2+ radial pulses bilaterally. No lower extremity edema. Neuro: Awake, alert, oriented x3. No gross motor or sensory deficits. Cranial nerves II through XII intact. Gait not assessed. laboratory and microbiology Laboratory Tests 06/02/24 05:51 Test 06/02/24 05:51 Range/Units Serum Glucose 82 74-106 mg/dL Assessment/Plan Impression: Acute hypoxic respiratory failure COVID-19 infection Metabolic encephalopathy Sepsis Events: Breathing on room air No respiratory distress. IS. Bronchodilators PRN. Continue antibiotics - metronidazole/cefepime Supportive care. Labs and imaging reviewed. Rest of plan as noted below. Plan: Supplemental oxygen PRN Titrate to keep O2 sats above 92%. Continue antibiotics F/u cultures Incentive spirometry Remdesivir course - DC'd due to renal failure Vitamin supplementation Monitor renal function. Monitor electrolytes. Supplement as necessary. Monitor ins and outs. DVT prophylaxis. Prognosis: Poor given patient's multiple co-morbidities. Rest of plan per hospitalist and other consultants. Thank you Dr. Jennifer Wolf MD, for allowing me to participate in this patient's care. Further recommendations will depend on the patient's clinical course. Please do not hesitate to contact me if you have any questions or concerns. This medical document was created using an electronic medical record system with [employer] system. Although these documentations are being carefully reviewed, there may still be some phonetic and typographical changes. The errors are purely typographical, due to imperfection on the software program, and do not reflect any compromise in the patient's medical care. Dietary Evaluation Review Comments: 1. Consider adding CCHO 60g, Renal restriction to diet 2. Consider adding Garrett BID (180kcal, 5g pro) for wound healing Expected Outcomes/Goals: 1. Pt will consume >7% of estimated needs in 3-5 days Plan discussed with: Patient, Other (RN) VANDANA TRACEY MD Jun 02, 2024 21:35
[2024-06-03 01:00] VITALS: BP 122/40; PULSE 87; RESP 18; TEMP 97.4; O2SAT 100
[2024-06-03 05:00] VITALS: BP 149/66; PULSE 88; RESP 18; TEMP 97.6; O2SAT 99
[2024-06-03] MEDS: LORazepam 2MG/ML-1ML VIAL IV ONE (07:45)
[2024-06-03 08:02] LABS: Basophils # (auto) 0 10 ^3/uL (0-0.2); Eosinophils # (auto) 0.1 10 ^3/uL (0-0.8); Eosinophils % (auto) 0.8 % (0.0-7.0); Hematocrit 28.5 % (41.0-53.0); Hemoglobin 9.4 g/dL (13.5-17.5); Lymphocytes # (auto) 1.1 10 ^3/uL (0.4-5.4); Lymphocytes % (auto) 10.6 % (10.0-50.0); Mean Corpuscular Hemoglobin 29.9 pg (28.0-32.0); Mean Corpuscular Hgb Conc. 32.9 g/dL (32.0-36.0); Monocytes # (auto) 0.8 10 ^3/uL (0-1.3); Monocytes % (auto) 7.6 % (0.0-12.0); Neutrophils # (auto) 8.3 10 ^3/uL (1.6-8.6); Platelet Count (auto) 161 10^3/uL (140-450); Red Blood Cells 3.13 10^6/uL (4.5-5.90); Red Cell Distribution Width 15.2 % (11.8-14.3); White Blood Cell 10.3 10^3/uL (4.4-10.8)
[2024-06-03 08:04] LABS: Chloride 109 mmol/L (98-107); Potassium 4.4 mmol/L (3.5-5.1); Sodium 142 mmol/L (136-145)
[2024-06-03 08:05] LABS: Anion Gap 10 (5-15); Calcium 8.7 mg/dL (8.7-10.4); Carbon Dioxide 23 mmol/L (20-31)
[2024-06-03 08:10] LABS: BUN/Creatinine Ratio 29.2 (10.0-20.0); Blood Urea Nitrogen 69 mg/dL (9-23); Glucose 56 mg/dL (74-106)
[2024-06-03] MEDS: DEXTROSE (50%) 50ML SYRG IV ONE (08:30)
[2024-06-03 09:00] VITALS: BP 118/41; PULSE 91; RESP 17; TEMP 97.6; O2SAT 100
[2024-06-03] MEDS ORDERED: INSULIN LANTUS (GLARGINE) 1 /0.01ml (100units/ml) SC SCH (10:00)
--- NOTE | 2024-06-03 11:16 | DVHPN2 ---
Progress Note Date Seen: Jun 03, 2024 Has the PT tested + for MRSA If YES, has PT been informed?: No Medical Necessity Reason Pt with a Central, PICC or Fol: Yes The following are medically ne: Lujan Catheter Reason for lujan catheter: Strict I&O Subjective Patient reports: Other Review of Systems: Deferred Objective vital signs Vital Sign Date Time Temp Pulse Resp B/P (MAP) Pulse Ox O2 Delivery O2 Flow Rate FiO2 06/03/24 09:00 97.6 91 17 118/41 (66) 100 97.6 06/03/24 08:00 Room Air* 0 21 Total Intake and Output 06/02/24 06/02/24 06/03/24 15:00 23:00 07:00 Intake Total 390 ml 1280 ml 625 ml Output Total 2500 ml 1400 ml Balance 390 ml -1220 ml -775 ml medications Current Medications Medications Dose Ordered Sig/Eagle Route Start Time Stop Time Status Last Admin Dose Admin Sodium Chloride 10 ml Q8HR IV 05/27/24 06:00 06/03/24 05:14 10 ML Acetaminophen 650 mg Q6HP PRN PO 05/26/24 22:30 06/02/24 08:38 650 MG Enoxaparin Sodium 30 mg DAILY SC 05/27/24 10:00 06/03/24 09:10 30 MG Lorazepam 1 mg ONCE PRN IV 05/26/24 23:15 Aspirin 81 mg DAILY PO 05/27/24 10:00 06/03/24 09:10 81 MG Diagnostic Test (Pha) 1 strip ACHS 05/27/24 07:00 06/03/24 07:52 1 STRIP Insulin Human Regular ACHS SC 05/27/24 07:00 06/02/24 22:51 2 UNITS Dextrose 50 ml UD PRN IV 05/27/24 00:00 Melatonin 5 mg HS PO 05/28/24 22:00 06/02/24 21:52 5 MG Cefepime HCl 50 ml @ 12.5 mls/hr DAILY IV 06/01/24 10:00 06/03/24 09:10 12.5 MLS/HR Metronidazole 100 ml @ 100 mls/hr Q8HR IV 05/31/24 14:00 06/03/24 05:13 100 MLS/HR Enteral Nutritional Formula 240 ml BIDWM PO 06/01/24 12:00 06/03/24 08:00 240 ML Examination: GENERAL:Normal, NEURO:Normal laboratory and microbiology Laboratory Tests 06/03/24 07:19 Test 06/03/24 07:19 Range/Units Serum Glucose 56 L 74-106 mg/dL Microbiology Date/Time Source Procedure Growth Status 05/28/24 03:00 Nose MRSA Screen - Final Complete 05/27/24 14:25 Blood Blood Culture - Final NO GROWTH AFTER 5 DAYS OF INCUBATION. Complete Problem List/Assessment/Plan Problem List/Assessment/Plan Acute kidney injury multifactorial. hemodynamic + vancotoxicity--no baseline available Ckd unspecified sepsis due to OM of foot s/p Surgery foot amputation 05/28/24 Covid PNA CKF EF 25% BKA Anemia recs Renal function slowly improving on Room air Downgraded from TIGRE 1L ivf Plan discussed with: Patient, Other Dietary Evaluation Review Comments: 1. Consider adding CCHO 60g, Renal restriction to diet 2. Consider adding Garrett BID (180kcal, 5g pro) for wound healing Expected Outcomes/Goals: 1. Pt will consume >7% of estimated needs in 3-5 days POLY DAILEY MD Jun 03, 2024 11:16
[2024-06-03] MEDS: LACTATED RINGER'S 1,000 ML IV ONE (12:00)
[2024-06-03 12:54] VITALS: BP 109/54; PULSE 92; RESP 16; TEMP 97.4; O2SAT 96
[2024-06-03 16:43] VITALS: BP 135/54; PULSE 89; RESP 17; TEMP 97.5; O2SAT 97
--- NOTE | 2024-06-03 17:59 | DVHPNRES ---
Progress Note Date Seen: Jun 03, 2024 Resident Creating Document: MADISON CAMPUZANO RESIDENT Has the PT tested + for MRSA If YES, has PT been informed?: No Medical Necessity Reason Pt with a Central, PICC or Fol: Yes The following are medically ne: Lujan Catheter Reason for lujan catheter: Strict I&O Medical Necessity Reason Pt with a Central, PICC or Fol: Yes The following are medically ne: Lujan Catheter Reason for lujan catheter: Strict I&O Subjective Review of Systems Was seen and examined today. The nurse's aids were present. The patient is back to his baseline. On a normal day he seems to wane and waxes. Today he is AOX2. Sometimes, he is fully comprehensive and follow instruction, other times he seems to be confused. Currently on room air, vital signs are stable. Overall patient is stable. Currently pending placement SNF. deployment manager on the case and sent information to the SNF preferred. Per patient's next of kin who is the power of associate attorney, he would like [facility]. Paper works faxed. Wound culture without any bacterial growth. We continue cefepime and Flagyl IV. Place order for midline. Placed SS consult for DC planning to SNF for PT and IV antibiotics Creatinine coming down, GFR is trending up currently at 25. Unable to perform brain MRI or GABBIE given current COVID [address] demonstrates multiple chronic strokes Continue PT Objective vital signs Vital Sign Date Time Temp Pulse Resp B/P (MAP) Pulse Ox O2 Delivery O2 Flow Rate FiO2 06/03/24 16:43 97.5 89 17 135/54 (81) 97 97.5 06/03/24 08:00 Room Air* 0 21 Total Intake and Output 06/02/24 06/02/24 06/03/24 15:00 23:00 07:00 Intake Total 390 ml 1280 ml 625 ml Output Total 2500 ml 1400 ml Balance 390 ml -1220 ml -775 ml medications Current Medications Medications Dose Ordered Sig/Eagle Route Start Time Stop Time Status Last Admin Dose Admin Sodium Chloride 10 ml Q8HR IV 05/27/24 06:00 06/03/24 14:29 10 ML Acetaminophen 650 mg Q6HP PRN PO 05/26/24 22:30 06/02/24 08:38 650 MG Enoxaparin Sodium 30 mg DAILY SC 05/27/24 10:00 06/03/24 09:10 30 MG Lorazepam 1 mg ONCE PRN IV 05/26/24 23:15 Aspirin 81 mg DAILY PO 05/27/24 10:00 06/03/24 09:10 81 MG Diagnostic Test (Pha) 1 strip ACHS 05/27/24 07:00 06/03/24 17:22 1 STRIP Insulin Human Regular ACHS SC 05/27/24 07:00 06/02/24 22:51 2 UNITS Dextrose 50 ml UD PRN IV 05/27/24 00:00 Melatonin 5 mg HS PO 05/28/24 22:00 06/02/24 21:52 5 MG Cefepime HCl 50 ml @ 12.5 mls/hr DAILY IV 06/01/24 10:00 06/03/24 09:10 12.5 MLS/HR Metronidazole 100 ml @ 100 mls/hr Q8HR IV 05/31/24 14:00 06/03/24 13:58 100 MLS/HR Enteral Nutritional Formula 240 ml BIDWM PO 06/01/24 12:00 06/03/24 08:00 240 ML Examination General: Alert and oriented x 2/3 comfortable appearing, in no acute distress. HEENT: Head is normocephalic and atraumatic. Pupils are equal, round, and reactive to light. Extraocular muscles are intact. No nasal discharge. No facial trauma. Intraoral exam shows moist mucous membranes with no tonsillar enlargement or exudate. Neck: Supple with no cervical lymphadenopathy No meningismus. No goiter. Heart: Regular rate without murmur, rub, or gallop. Lungs: Scattered crackles, no wheezing Abdomen: No external sign of injury. Bowel sounds are present. Abdomen is soft, nontender. No rebound, no guarding, no rigidity. There are no palpable masses. There is no flank pain on exam. Extremities: Strong peripheral pulses. There is no clubbing, no cyanosis, and no edema. Right below-knee amputation, left foot dressing due to amputation with clean dressing Skin: Nos rash Neurologic: grossly stable. laboratory and microbiology Laboratory Tests 06/03/24 07:19 Test 06/03/24 07:19 Range/Units Serum Glucose 56 L 74-106 mg/dL Microbiology Date/Time Source Procedure Growth Status 05/28/24 03:00 Nose MRSA Screen - Final Complete 05/27/24 14:25 Blood Blood Culture - Final NO GROWTH AFTER 5 DAYS OF INCUBATION. Complete Problem List/Assessment/Plan Problem List/Assessment/Plan Problem List/Assessment/Plan # metabolic vs toxic encephalopathy vs mixed Improving, continue delirium precautions Likely related to underlying infection # Multiple strokes prior CT brain scan # baseline vascular dementia likely worsening in recent times, unknown exact baseline as no reference received. MRI and GABBIE pending, can not be done due to current COVID-19 infection # possible aspiration pneumonia Gram-positive versus Gram-negative On broad-spectrum antibiotics, sputum culture with no growth # COVID-19 infection with viral pneumonia: remdesivir discontinued for worsening renal failure and oral steroid discontinued as patient is currently on room air # Acute hypoxic respiratory failure , likely due to above complicated with congestive heart failure Improving oxygenation with weaning as tolerated to keep the SpO2 of >92%, currently on room air # MARYANA due to VMN # questionable CKD stage undetermined, given longstanding diabetes. No known baseline. Avoid nephrotoxic agents Continue to monitor Nephrology on board BUN rising, check input output closely. Declining urinary function. Follow closure I&O, infection control and hydration to continue. GFR trending up # hyperkalemia, Improved Continue to monitor # uremia BUN in 80s, severely elevated, but trending down nephrology on board # Left foot osteomyelitis with overlying skin and soft tissue infection versus gangrene due to peripheral arterial disease status post TMA by Podiatry on 05/28/24, culture with no growth, Continue cefepime IV and Flagyl PO, # UTI, could be hospital-acquired, from recent hospitalization Continue broad-spectrum antibiotics # Sepsis secondary due to UTI, osteomyelitis and COVID-19 continue antibiotics and held antivirals. Workup otherwise negative. # anemia of chronic disease Likely due to CKD/multifactorial, poor nutrition # Diabetes mellitus well controlled, 6.4 HbA1c patient on diet, target BG 140-180 mg per dL. High-protein diet to continue, multivitamins to help axillary healing, Continue Lantus 12 U # right external carotid artery greater than 70% stenosis Collaterals intact # DVT prophylaxis Prophylactic Lovenox # Diet: soft mechanical diet technical services coordinator consulted for DC planning to SNF for PT and IV antibiotics cefepime for 8 more days, will also send with flagyl po Goals of care were discussed for 23 minutes. Modified code. DNR with intubation trial Case and plan discussed with Dr. Vazquez Plan discussed with: Patient, Other (nurses and case workers) Dietary Evaluation Review Comments: 1. Consider adding CCHO 60g, Renal restriction to diet 2. Consider adding Garrett BID (180kcal, 5g pro) for wound healing Expected Outcomes/Goals: 1. Pt will consume >7% of estimated needs in 3-5 days Date of Service: Jun 03, 2024 Billing Provider: RIA ORNELAS MD Common Visit Codes: [id number] INP/OBS CARE(HIGH) MADISON CAMPUZANO RESIDENT Jun 03, 2024 17:59 RIA ORNELAS MD Jun 04, 2024 09:15
[2024-06-03 20:35] VITALS: BP 118/49; PULSE 89; RESP 20; TEMP 98.2; O2SAT 98
--- NOTE | 2024-06-03 21:13 | DVHPN2 ---
Progress Note - Dictate Date Seen: Jun 03, 2024 Has the PT tested + for MRSA If YES, has PT been informed?: No Medical Necessity Reason Pt with a Central, PICC or Fol: Yes The following are medically ne: Lujan Catheter Reason for lujan catheter: Strict I&O Subjective Patient seen and examined at bedside. Breathing comfortably on room air. Overnight events reviewed. vital signs Vital Sign Date Time Temp Pulse Resp B/P (MAP) Pulse Ox O2 Delivery O2 Flow Rate FiO2 06/03/24 20:35 98.2 89 20 118/49 (72) 98 98.2 06/03/24 08:00 Room Air* 0 21 Total Intake and Output 06/02/24 06/02/24 06/03/24 14:59 22:59 06:59 Intake Total 390 ml 1280 ml 625 ml Output Total 2500 ml 1400 ml Balance 390 ml -1220 ml -775 ml medications Current Medications Medications Dose Ordered Sig/Eagle Route Start Time Stop Time Status Last Admin Dose Admin Sodium Chloride 10 ml Q8HR IV 05/27/24 06:00 06/03/24 14:29 10 ML Acetaminophen 650 mg Q6HP PRN PO 05/26/24 22:30 06/02/24 08:38 650 MG Enoxaparin Sodium 30 mg DAILY SC 05/27/24 10:00 06/03/24 09:10 30 MG Lorazepam 1 mg ONCE PRN IV 05/26/24 23:15 Aspirin 81 mg DAILY PO 05/27/24 10:00 06/03/24 09:10 81 MG Diagnostic Test (Pha) 1 strip ACHS 05/27/24 07:00 06/03/24 17:22 1 STRIP Insulin Human Regular ACHS SC 05/27/24 07:00 06/03/24 17:00 2 UNITS Dextrose 50 ml UD PRN IV 05/27/24 00:00 Melatonin 5 mg HS PO 05/28/24 22:00 06/02/24 21:52 5 MG Cefepime HCl 50 ml @ 12.5 mls/hr DAILY IV 06/01/24 10:00 06/03/24 09:10 12.5 MLS/HR Metronidazole 100 ml @ 100 mls/hr Q8HR IV 05/31/24 14:00 06/03/24 13:58 100 MLS/HR Enteral Nutritional Formula 240 ml BIDWM PO 06/01/24 12:00 06/03/24 18:00 240 ML objective Gen.: Patient lying in bed in no apparent distress. Breathing on room air. Head: Normocephalic, atraumatic. Eyes: EOMI/PERRLA. Ears: Normal hearing. Normal anatomy. Neck/trachea: Trachea midline, supple. Nose: Normal external anatomy. Mouth: Moist mucous membranes. Chest: Decreased air entry bilaterally. No wheezing or rhonchi. Cardiovascular: Positive S1, positive S2. Regular rate and rhythm. Abdomen: Positive bowel sounds in all 4 quadrants. Soft, non-tender, non- distended. : Deferred. Rectal: Deferred. Skin: Warm, dry. Intact. Extremities: 2+ radial pulses bilaterally. No lower extremity edema. Neuro: Awake, alert, oriented x3. No gross motor or sensory deficits. Cranial nerves II through XII intact. Gait not assessed. laboratory and microbiology Laboratory Tests 06/03/24 07:19 Test 06/03/24 07:19 Range/Units Serum Glucose 56 L 74-106 mg/dL Assessment/Plan Impression: Acute hypoxic respiratory failure COVID-19 infection Metabolic encephalopathy Sepsis Events: Breathing on room air No respiratory distress. IS. Bronchodilators PRN. Continue antibiotics - cefepime, Flagyl LR at 75 ml/hr Accu-Cheks, ISS. DVT prophylaxis. Supportive care. Labs and imaging reviewed. Rest of plan as noted below. Plan: Supplemental oxygen PRN Titrate to keep O2 sats above 92%. Continue antibiotics F/u cultures Incentive spirometry Remdesivir course - DC'd due to renal failure Vitamin supplementation Monitor renal function. Monitor electrolytes. Supplement as necessary. Monitor ins and outs. DVT prophylaxis. Prognosis: Poor given patient's multiple co-morbidities. Rest of plan per hospitalist and other consultants. Thank you Dr. Jennifer Wolf MD, for allowing me to participate in this patient's care. Further recommendations will depend on the patient's clinical course. Please do not hesitate to contact me if you have any questions or concerns. This medical document was created using an electronic medical record system with [employer] system. Although these documentations are being carefully reviewed, there may still be some phonetic and typographical changes. The errors are purely typographical, due to imperfection on the software program, and do not reflect any compromise in the patient's medical care. Dietary Evaluation Review Comments: 1. Consider adding CCHO 60g, Renal restriction to diet 2. Consider adding Garrett BID (180kcal, 5g pro) for wound healing Expected Outcomes/Goals: 1. Pt will consume >7% of estimated needs in 3-5 days Plan discussed with: Patient, Other (VAMSI Polk) VANDANA TRACEY MD Jun 03, 2024 21:13
[2024-06-04] VITALS (8 sets, daily range): BP systolic 105–129; BP diastolic 40–62; PULSE 80–93; RESP 18–20; TEMP 97.8–98.5; O2SAT 97–99
[2024-06-04 11:03] LABS: Chloride 109 mmol/L (98-107); Potassium 4.8 mmol/L (3.5-5.1); Sodium 139 mmol/L (136-145)
[2024-06-04 11:04] LABS: Anion Gap 7 (5-15); Calcium 8.1 mg/dL (8.7-10.4); Carbon Dioxide 23 mmol/L (20-31)
[2024-06-04 11:09] LABS: Blood Urea Nitrogen 61 mg/dL (9-23)
[2024-06-04 11:14] LABS: Glucose 225 mg/dL (74-106)
[2024-06-04 11:24] LABS: BUN/Creatinine Ratio 26.5 (10.0-20.0)
--- NOTE | 2024-06-04 13:48 | DVHDSRES ---
Discharge Summary Date of Admission Resident Creating Document: MADISON CAMPUZANO RESIDENT May 26, 2024 at 19:21 Date of Discharge: Jun 04, 2024 Admitting Diagnosis Altered mental status Pneumonia MARYANA Labs/Diagnostic Data: Laboratory Results Test 06/04/24 10:31 06/04/24 06:34 06/03/24 07:19 06/01/24 05:07 Sodium Level 139 mmol/L (136-145) Potassium Level 4.8 mmol/L (3.5-5.1) Chloride Level 109 mmol/L (98-107) Carbon Dioxide Level 23 mmol/L (20-31) Anion Gap 7 (5-15) Blood Urea Nitrogen 61 mg/dL (9-23) Creatinine 2.30 mg/dL (0.700-1.30) Glomerular Filtration Rate Calc 29 mL/min (>90) BUN/Creatinine Ratio 26.5 (10.0-20.0) Serum Glucose 225 mg/dL (74-106) Calcium Level 8.1 mg/dL (8.7-10.4) POC Glucose 85 mg/dl (70-106) White Blood Count 10.3 10^3/uL (4.4-10.8) Red Blood Count 3.13 10^6/uL (4.5-5.90) Hemoglobin 9.4 g/dL (13.5-17.5) Hematocrit 28.5 % (41.0-53.0) Mean Corpuscular Volume 91.0 fL (80.0-100.0) Mean Corpuscular Hemoglobin 29.9 pg (28.0-32.0) Mean Corpuscular Hemoglobin Concent 32.9 g/dL (32.0-36.0) Red Cell Distribution Width 15.2 % (11.8-14.3) Platelet Count 161 10^3/uL (140-450) Mean Platelet Volume 11.7 fL (6.9-10.8) Neutrophils (%) (Auto) 81.0 % (37.0-80.0) Lymphocytes (%) (Auto) 10.6 % (10.0-50.0) Monocytes (%) (Auto) 7.6 % (0.0-12.0) Eosinophils (%) (Auto) 0.8 % (0.0-7.0) Basophils (%) (Auto) 0.0 % (0.0-2.0) Neutrophils # (Auto) 8.3 10 ^3/uL (1.6-8.6) Lymphocytes # (Auto) 1.1 10 ^3/uL (0.4-5.4) Monocytes # (Auto) 0.8 10 ^3/uL (0-1.3) Eosinophils # (Auto) 0.1 10 ^3/uL (0-0.8) Basophils # (Auto) 0 10 ^3/uL (0-0.2) Nucleated Red Blood Cells 0.0 % Total Bilirubin 0.3 mg/dL (0.2-1.0) Aspartate Amino Transferase (AST) 62 U/L (13-40) Alanine Aminotransferase (ALT) 39 U/L (7-40) Alkaline Phosphatase 77 U/L (46-116) C-Reactive Protein High Sensitivity 3.79 mg/dL (<1.0) Total Protein 6.1 g/dL (5.7-8.2) Albumin 3.1 g/dL (3.2-4.8) Random Vancomycin Level 14.3 ug/mL (5-10) Test 05/31/24 09:00 05/30/24 04:42 05/28/24 08:30 05/28/24 05:11 SARS-CoV-2 Antigen (Rapid) Positive (NEGATIVE) Vancomycin Level Trough 21.9 ug/mL (5-10) Prothrombin Time 11.9 sec (9.3-11.8) Prothrombin Time INR 1.13 (0.9-1.15) Activated Partial Thromboplast Time 39.0 SEC (24.5-34.5) Phosphorus Level 4.2 mg/dL (2.4-5.1) Magnesium Level 1.9 mg/dL (1.6-2.6) Test 05/27/24 23:40 05/27/24 14:45 05/27/24 14:37 05/27/24 05:00 Influenza Type A Antigen Negative (Negative) Influenza Type B Antigen Negative (Negative) Blood Gas Specimen Type Arterial Blood Gas Sample Site Left brachial Blood Gas Patient Temperature 37.0 Arterial Blood Date Drawn [id number] Arterial Blood pH 7.360 (7.350-7.450) Arterial Blood Partial Pressure CO2 22.0 mmHg (35.0-48.0) Arterial Blood Partial Pressure O2 55.2 mmHg (83.0-108.0) Arterial Blood HCO3 12.1 mmol/L (21.0-28.0) Arterial Blood Oxygen Saturation 86.3 % (94.0-98.0) Arterial Blood Base Excess -11.8 mmol/L (-2.0-3.0) Arterial Blood Oxyhemoglobin 85.4 % (94.0-98.0) Arterial Blood Carboxyhemoglobin 0.5 % (0.5-1.5) Arterial Blood Methemoglobin 0.5 % (0.0-1.5) Lion Test N/a Blood Gas Total Hemoglobin 9.00 g/dL (13.5-17.5) Blood Gas Liter Flow 4.00 Blood Gas Modality Nasal cannula FiO2 % 36.0 Lactic Acid Level 1.2 mmol/L (0.4-2.0) Urine Color Light-red (Yellow) Urine Clarity Ex.turbid (Clear) Urine pH 5.5 (5.0-9.0) Urine Specific [place] 1.013 (1.001-1.035) Urine Protein 2+ (Negative) Urine Ketones Trace (Negative) Urine Blood 3+ /uL (Negative) Urine Nitrite Negative (Negative) Urine Bilirubin Negative (Negative) Urine Urobilinogen Normal mg/dL (Negative) Urine Leukocyte Esterase 3+ /uL (Negative) Urine RBC 2720 /hpf (0 - 3) Urine WBC 306 /hpf (0 - 3) Urine Squamous Epithelial Cells None seen /hpf (<5) Urine Bacteria None seen /hpf (None Seen) Urine Glucose 1+ mg/dL (Normal) Urine Opiates Screen Neg (NEGATIVE) Urine Fentanyl Screen Neg (NEGATIVE) Urine Barbiturates Screen Neg (NEGATIVE) Urine Phencyclidine Screen Neg (NEGATIVE) Urine Amphetamines Screen Neg (NEGATIVE) Urine Benzodiazepines Screen Neg (NEGATIVE) Urine Cocaine Screen Neg (NEGATIVE) Urine Cannabinoids Screen Neg (NEGATIVE) Test 05/26/24 23:15 Hemoglobin A1c 6.4 % A1C (<5.7) B-Type Natriuretic Peptide 1347.78 pg/mL (0-100) Triglycerides Level 129 mg/dL (< 150) Cholesterol Level 102 mg/dL (< 200) LDL Cholesterol 46 mg/dL (< 100) HDL Cholesterol 32 mg/dL (40-59) Vitamin B12 Level 1314 pg/mL (211-911) Vitamin D 25-Hydroxy 40.8 ng/mL (30.0-100) Folic Acid 28.30 ng/mL (>5.38) Thyroid Stimulating Hormone (TSH) 1.70 uIU/mL (0.55-4.78) Free Thyroxine (T4) Calculated 1.20 ng/dL (0.89-1.76) Other Laboratory Tests 06/04/24 10:31 06/03/24 07:19 Brief Hx & Hospital Course: Mr. Yoni Tuttle, a 78-year-old male with a past medical history of congestive heart failure, diabetes, CKD, recurrent urinary tract infections, and right BKA, presented s with a chief complaint of metabolic encephalopathy. The patient was transferred from [facility] where he was in an altered mental state. Patient was sent to the [facility] on 05/18/2024 for altered mental status and was found to have osteomyelitis of the left foot. Thus was transferred to [facility] and the [facility] on 05/26/24, likely for care of his left foot osteomyelitis. At presentation here, he was not talking and was A&O X1. He also was sating at low oxygen levels, ranging from 84 to 88. He was placed on 3 L of oxygen. At [facility], patient was managed for acute respiratory failure, COVID pneumonia, metabolic encephalopathy possible aspiration pneumonia and sepsis. He had left transmetatarsal amputation. He has been on antibiotics (cefepime and Flagy). Patient is doing better. He is now AOx4. So far, the patient has received one week of antibiotics. He has 7 more days of antibiotics to take. Patient is stable and ready for discharge. The initial plan was to transfer patient to SNF for the antibiotics and PT. However, patient is adamant about going home with home health. His nephew, Madhu, is the power of employment attorney. But the patient is fully awake and oriented and made the decision to be sent home. Patient's wishes were communicated with the child welfare caseworker. Consults/Reason for consult Acute hypoxic respiratory failure and COVID-19 infection Operations or Procedures ORDERING PHYSICIAN: DALTON HARRISON MD PROCEDURE(s): CARCL - CAROTID DUPLX W COLOR DOP REASON: cva ORDER NUMBER(s): [id number], ACCESSION NUMBER(s): [id number] US CAROTID DOPPLER CLINICAL INDICATION: cva TECHNIQUE: Multiple grayscale, color Doppler and spectral Doppler ultrasound images were obtained throughout both carotid systems. COMPARISON: None FINDINGS: RIGHT: Distal ICA is not visualized CCA PSV: 88 cm/s ECA PSV: 382 cm/s ICA PSV: 180 cm/s ICA EDV: 40 cm/s ICA/CCA Ratio: 2 Vertebral artery: Patent, antegrade flow. Grayscale images demonstrate calcified atherosclerotic plaque in the carotid bifurcation, internal carotid artery, and visualized external carotid artery. The distal internal carotid artery was not visualized LEFT: CCA PSV: 59 cm/s ECA PSV: Not visualized ICA PSV: 96 cm/s ICA EDV: 17 cm/s ICA/CCA Ratio: 1.6 Vertebral artery: Not visualized Grayscale images demonstrate mild atherosclerotic plaque in the proximal internal carotid artery . Spectral analysis demonstrates no hemodynamically significant CCA or ICA stenosis. IMPRESSION: 1. There is 50-69% stenosis of the right proximal ICA by atherosclerotic plaque. 2. Greater than 70% stenosis of the right external carotid artery by atherosclerotic plaque. 3. No significant left common carotid or ICA stenosis ATED BY: NASIR ASENCIO MD DICTATED DATE/TIME: 05/27/24213 SIGNED BY: NASIR ASENCIO MD SIGNED DATE/TIME: 05/27/24213 CC: PATIENT: TARIQ AWAN ACCT: [id number] UNIT: [id number] : 1945 LOC: CENTRAL ROOM / BED: [facility] [place] [place] AGE / SEX: 78 / M ADM STATUS: ADM IN SERVICE 9 ORDERING PHYSICIAN: ESTER CLARK RESIDENT PROCEDURE(s): CXRP - CHEST PORTABLE REASON: SOB ORDER NUMBER(s): [id number], ACCESSION NUMBER(s): [id number] CHEST RADIOGRAPH Indication:SOB Technique: Single frontal view of the chest was obtained Comparison: None FINDINGS: Lines and Tubes: None Lungs: Extensive pulmonary edema. Pleura: No effusion. No pneumothorax. Cardiomediastinal contours: Unremarkable Bones: No acute osseous abnormality. IMPRESSION: Extensive pulmonary edema. Atypical viral pneumonia can not be excluded. ATED BY: FREDERICK SMITH MD DICTATED DATE/TIME: 05/27/24699 SIGNED BY: FREDERICK SMITH MD SIGNED DATE/TIME: 05/27/24699 CC: ORDERING PHYSICIAN: DALTON HARRISON MD PROCEDURE(s): LFTCT - CT L FOOT WO CONTRAST REASON: Osteomyelitis ORDER NUMBER(s): [id number], ACCESSION NUMBER(s): [id number] INDICATION: Osteomyelitis COMPARISON: None TECHNIQUE: CT of the left foot was performed without contrast. Volume transverse images were obtained and reconstructed in multiple planes using bone and soft tissue algorithms. Radiation Dose Information: CT Dose: CTDI volume is 25.25 mGy. Dose-length product is 979.53 mGy*cm FINDINGS: Post resection of the distal 5th digit from the level of the metatarsal. The alignment is normal. The joint spaces are normal. There is no fracture, dislocation or aggressive osseous lesion. There is no joint effusion. Small volume subcutaneous emphysema and ulceration involving the dorsal / lateral soft tissues of the foot. Diffuse vascular atherosclerotic disease. IMPRESSION: No definite CT findings of acute osteomyelitis. MRI can be obtained to further evaluate if clinically indicated. Soft-tissue ulceration and small volume subcutaneous emphysema involving the dorsal/lateral aspect of the foot. Clinical correlation advised. All CT scans at this medical facility are performed using dose modulation techniques as appropriate to a performed exam including the following: Automated exposure control was utilized; adjustment of the MA and/or KV according to patient size; and use of iterative reconstruction technique. ATED BY: MONROE ARAGON MD DICTATED DATE/TIME: 05/27/241334 SIGNED BY: MONROE ARAGON MD SIGNED DATE/TIME: 05/27/241334 ORDERING PHYSICIAN: HONG REBOLLAR PROCEDURE(s): LLEAD - Lt Low Ext Art Duplex REASON: possible surgery and vascular supply compromise. ORDER NUMBER(s): [id number], ACCESSION NUMBER(s): [id number] Left Lower Extremity Arterial Duplex Clinical History: possible surgery and vascular supply compromise. Comparison: None Technique: Duplex Doppler evaluation including color Doppler and spectral/pulsed waveform analysis of the lower extremity arteries was performed. Findings: LEFT: Peak systolic velocities are as follows: APPLICATION SECURITY ARCHITECT 202 cm/s BIPHASIC WAVEFORM Deep femoral 156 cm/s BIPHASIC WAVEFORM SFA proximal 185 cm/s BIPHASIC WAVEFORM SFA mid-portion 131 cm/s biphasic waveform SFA distal 92 cm/s biphasic waveform Popliteal 134 cm/s biphasic waveform Posterior tibial 77 cm/s monophasic waveform Anterior tibial 22 cm/s monophasic waveform Dorsalis pedis 11 cm/s monophasic wave The waveforms are biphasic waveform [id number] monophasic waveform [id number]-[id number]. IMPRESSION: 1. No arterial occlusion. 2. Monophasic waveform [id number]. REFERENCE VALUES, [facility] ([facility]) vascular Imaging Lab Criteria: Peak systolic velocity ranges (in cm/sec) are as follows: <150 cm/s - <20 % stenosis 150-200 cm/s - 20-49% stenosis 200-300 cm/s - 50-75% stenosis >300 cm/s -> 75% stenosis ATED BY: TARIQ ARAUJO Jr., DO DICTATED DATE/TIME: 05/27/241458 SIGNED BY: TARIQ ARAUJO Jr., SIGNED DATE/TIME: 05/27/241458 ORDERING PHYSICIAN: HONG REBOLLAR RESIDENT PROCEDURE(s): CXRP - CHEST PORTABLE REASON: Routine ORDER NUMBER(s): [id number], ACCESSION NUMBER(s): [id number] CHEST RADIOGRAPH Indication:Routine Technique: Single frontal view of the chest was obtained Comparison: XY CHEST PORTABLE on DOS: 05/27/24, XY CHEST PORTABLE on DOS: 05/27/24 FINDINGS: Lines and Tubes: None Lungs: Extensive pulmonary edema. Pleura: No effusion. No pneumothorax. Cardiomediastinal contours: Unremarkable Bones: No acute osseous abnormality. IMPRESSION: Extensive pulmonary edema. Atypical viral pneumonia can not be excluded. ATED BY: FREDERICK SMITH MD DICTATED DATE/TIME: 05/28/24 0706 ORDERING PHYSICIAN: AIDA MORILLO RESIDENT PROCEDURE(s): HWOCT - HEAD WITHOUT CONTRAST REASON: AMS ORDER NUMBER(s): [id number], ACCESSION NUMBER(s): [id number] EXAM: CT HEAD WITHOUT CONTRAST HISTORY: AMS COMPARISON: None TECHNIQUE: Axial images of the head were obtained and reformatted in coronal and sagittal planes. All CT scans at this medical facility are performed using dose modulation techniques as appropriate to a performed exam including the following: Automated exposure control was utilized; adjustment of the MA and/or KV according to patient size; and use of iterative reconstruction technique. CT Dose: CTDI volume is 59.97 mGy. Dose-length product is 1181.8 mGy*cm FINDINGS: There are chronic infarcts in the bilateral posterior cerebellum with associated encephalomalacia. There is also a small chronic infarct in the superior medial right frontal lobe. There are hypodense areas in the supratentorial white matter compatible with moderate chronic microvascular ischemic changes. There is likely small chronic lacunar infarct in the left singh radiata. There is no evidence of acute intracranial hemorrhage, mass, mass effect midline shift. There is no hydrocephalus or extra-axial fluid collection. The visualized paranasal sinuses and mastoid air cells are clear. The calvarium is intact. IMPRESSION: 1. No acute intracranial process. 2. Multiple chronic infarcts as noted above. HS:Y ATED BY: WILSON GONZALEZ MD DICTATED DATE/TIME: 06/02/24 0930 Condition at Discharge: Stable Final Diagnosis/Problems List Possible aspiration pneumonia Gram-positive versus Gram-negative COVID-19 infection with viral pneumonia: Acute hypoxic respiratory failure MARYANA due to VMN questionable CKD S/P TMA left foot Discharge Disposition: Home with Health Services Discharge Statement: "Patient was advised to return to the ER or call 911 if any headaches, dizziness, shortness of breath, chest pain, abdominal pain, bleeding, fevers, or worsening of medical condition. Patient was counseled about treatment plan, medications, possible side effects, patientverbalized understanding. All questions were answered to the best of my ability. This discharge took greater then 30 minutes in planning, reviewing documentation, counseling the patient, and discussing with other team members." ASSESSMENT ASSESSMENT Assessment Date of Service: Jun 04, 2024 Billing Provider: RIA ORNELAS MD Common Visit Codes: 23158-YHC/OBS DISCH DAY >30min MADISON CAMPUZANO RESIDENT Jun 04, 2024 13:48 RIA ORNELAS MD Jun 06, 2024 09:22
--- NOTE | 2024-06-04 16:20 | DVHPN2 ---
Progress Note Date Seen: Jun 04, 2024 Has the PT tested + for MRSA If YES, has PT been informed?: No Medical Necessity Reason Pt with a Central, PICC or Fol: Yes The following are medically ne: Lujan Catheter Reason for lujan catheter: Strict I&O Subjective Review of Systems Pt reports he feels well and will be discharged today. Patient reports: No new complaints, Feels better Objective vital signs Vital Sign Date Time Temp Pulse Resp B/P (MAP) Pulse Ox O2 Delivery O2 Flow Rate FiO2 06/04/24 12:34 98.3 84 20 126/50 (75) 99 98.3 06/04/24 08:00 Room Air* 0 21 Total Intake and Output 06/03/24 06/03/24 06/04/24 15:00 23:00 07:00 Intake Total 150 ml 2087 ml 458 ml Output Total 850 ml 500 ml Balance 150 ml 1237 ml -42 ml medications Current Medications Medications Dose Ordered Sig/Eagle Route Start Time Stop Time Status Last Admin Dose Admin Sodium Chloride 10 ml Q8HR IV 05/27/24 06:00 06/04/24 05:55 10 ML Acetaminophen 650 mg Q6HP PRN PO 05/26/24 22:30 06/02/24 08:38 650 MG Enoxaparin Sodium 30 mg DAILY SC 05/27/24 10:00 06/04/24 08:59 30 MG Lorazepam 1 mg ONCE PRN IV 05/26/24 23:15 Aspirin 81 mg DAILY PO 05/27/24 10:00 06/04/24 08:59 81 MG Diagnostic Test (Pha) 1 strip ACHS 05/27/24 07:00 06/04/24 11:32 1 STRIP Insulin Human Regular ACHS SC 05/27/24 07:00 06/04/24 11:33 4 UNITS Dextrose 50 ml UD PRN IV 05/27/24 00:00 Melatonin 5 mg HS PO 05/28/24 22:00 06/03/24 21:54 5 MG Cefepime HCl 50 ml @ 12.5 mls/hr DAILY IV 06/01/24 10:00 06/04/24 08:59 12.5 MLS/HR Metronidazole 100 ml @ 100 mls/hr Q8HR IV 05/31/24 14:00 06/04/24 06:08 100 MLS/HR Enteral Nutritional Formula 240 ml BIDWM PO 06/01/24 12:00 06/04/24 08:00 240 ML Examination Gen: Alert, in no acute distress Neuro: Alert and oriented laboratory and microbiology Laboratory Tests 06/04/24 10:31 06/03/24 07:19 Test 06/04/24 10:31 Range/Units Serum Glucose 225 #H 74-106 mg/dL Microbiology Date/Time Source Procedure Growth Status 05/28/24 03:00 Nose MRSA Screen - Final Complete 05/27/24 14:25 Blood Blood Culture - Final NO GROWTH AFTER 5 DAYS OF INCUBATION. Complete Labs and/or images reviewed: Labs reviewed by me Problem List/Assessment/Plan Problem List/Assessment/Plan Acute kidney injury multifactorial. hemodynamic + vancotoxicity--no baseline available- continues to slowly improve Ckd unspecified sepsis due to OM of foot s/p Surgery foot amputation 05/28/24 Covid PNA CKF EF 25% BKA Anemia REC Serial chemistry panels Will continue to follow Follow up as outpatient once discharged Plan discussed with: Patient Dietary Evaluation Review Comments: 1. Consider adding CCHO 60g, Renal restriction to diet 2. Consider adding Garrett BID (180kcal, 5g pro) for wound healing Expected Outcomes/Goals: 1. Pt will consume >7% of estimated needs in 3-5 days NICHOLE PIPER Jun 04, 2024 16:20
[2024-06-04] MEDS: LORazepam 2MG/ML-1ML VIAL IV PRN (20:59)
--- NOTE | 2024-06-04 21:04 | DVHPN2 ---
Progress Note - Dictate Date Seen: Jun 04, 2024 Has the PT tested + for MRSA If YES, has PT been informed?: No Medical Necessity Reason Pt with a Central, PICC or Fol: Yes The following are medically ne: Lujan Catheter Reason for lujan catheter: Strict I&O Subjective Patient seen and examined at bedside. Breathing comfortably on room air. Overnight events reviewed. vital signs Vital Sign Date Time Temp Pulse Resp B/P (MAP) Pulse Ox O2 Delivery O2 Flow Rate FiO2 06/04/24 20:00 80 19 97 Room Air* 0 06/04/24 16:59 98.4 125/56 (79) 98.4 Total Intake and Output 06/03/24 06/03/24 06/04/24 15:00 23:00 07:00 Intake Total 150 ml 2087 ml 458 ml Output Total 850 ml 500 ml Balance 150 ml 1237 ml -42 ml medications Current Medications Medications Dose Ordered Sig/Eagle Route Start Time Stop Time Status Last Admin Dose Admin Sodium Chloride 10 ml Q8HR IV 05/27/24 06:00 06/04/24 14:00 10 ML Acetaminophen 650 mg Q6HP PRN PO 05/26/24 22:30 06/02/24 08:38 650 MG Enoxaparin Sodium 30 mg DAILY SC 05/27/24 10:00 06/04/24 08:59 30 MG Lorazepam 1 mg ONCE PRN IV 05/26/24 23:15 Aspirin 81 mg DAILY PO 05/27/24 10:00 06/04/24 08:59 81 MG Diagnostic Test (Pha) 1 strip ACHS 05/27/24 07:00 06/04/24 17:00 1 STRIP Insulin Human Regular ACHS SC 05/27/24 07:00 06/04/24 11:33 4 UNITS Dextrose 50 ml UD PRN IV 05/27/24 00:00 Melatonin 5 mg HS PO 05/28/24 22:00 06/03/24 21:54 5 MG Cefepime HCl 50 ml @ 12.5 mls/hr DAILY IV 06/01/24 10:00 06/04/24 08:59 12.5 MLS/HR Metronidazole 100 ml @ 100 mls/hr Q8HR IV 05/31/24 14:00 06/04/24 14:00 100 MLS/HR Enteral Nutritional Formula 240 ml BIDWM PO 06/01/24 12:00 06/04/24 17:33 240 ML objective Gen.: Patient lying in bed in no apparent distress. Breathing on room air. Head: Normocephalic, atraumatic. Eyes: EOMI/PERRLA. Ears: Normal hearing. Normal anatomy. Neck/trachea: Trachea midline, supple. Nose: Normal external anatomy. Mouth: Moist mucous membranes. Chest: Decreased air entry bilaterally. No wheezing or rhonchi. Cardiovascular: Positive S1, positive S2. Regular rate and rhythm. Abdomen: Positive bowel sounds in all 4 quadrants. Soft, non-tender, non- distended. : Deferred. Rectal: Deferred. Skin: Warm, dry. Intact. Extremities: 2+ radial pulses bilaterally. No lower extremity edema. Neuro: Awake, alert, oriented x3. No gross motor or sensory deficits. Cranial nerves II through XII intact. Gait not assessed. laboratory and microbiology Laboratory Tests 06/04/24 10:31 06/03/24 07:19 Test 06/04/24 10:31 Range/Units Serum Glucose 225 #H 74-106 mg/dL Assessment/Plan Impression: Acute hypoxic respiratory failure COVID-19 infection Metabolic encephalopathy Sepsis Events: Breathing on room air No respiratory distress. Chemical code. IS. Bronchodilators PRN. Continue antibiotics - cefepime, Flagyl DVT prophylaxis. Supportive care. Labs and imaging reviewed. Rest of plan as noted below. Plan: Supplemental oxygen PRN Titrate to keep O2 sats above 92%. Continue antibiotics F/u cultures Incentive spirometry Remdesivir course - DC'd due to renal failure Vitamin supplementation Monitor renal function. Monitor electrolytes. Supplement as necessary. Monitor ins and outs. DVT prophylaxis. Prognosis: Poor given patient's multiple co-morbidities. Rest of plan per hospitalist and other consultants. Thank you Dr. Jennifer Wolf MD, for allowing me to participate in this patient's care. Further recommendations will depend on the patient's clinical course. Please do not hesitate to contact me if you have any questions or concerns. This medical document was created using an electronic medical record system with [employer] system. Although these documentations are being carefully reviewed, there may still be some phonetic and typographical changes. The errors are purely typographical, due to imperfection on the software program, and do not reflect any compromise in the patient's medical care. Dietary Evaluation Review Comments: 1. Consider adding CCHO 60g, Renal restriction to diet 2. Consider adding Garrett BID (180kcal, 5g pro) for wound healing Expected Outcomes/Goals: 1. Pt will consume >7% of estimated needs in 3-5 days Plan discussed with: Patient, Other (VAMSI Crockett) VANDANA TRACEY MD Jun 04, 2024 21:04
[2024-06-05] VITALS (8 sets, daily range): BP systolic 108–133; BP diastolic 43–60; PULSE 82–91; RESP 16–19; TEMP 97.6–98.7; O2SAT 97–99
--- NOTE | 2024-06-05 13:50 | DVHPN2 ---
Progress Note Date Seen: Jun 05, 2024 Has the PT tested + for MRSA If YES, has PT been informed?: No Medical Necessity Reason Pt with a Central, PICC or Fol: Yes The following are medically ne: Lujan Catheter Reason for lujan catheter: Strict I&O Subjective Review of Systems In no acute distress. Patient reports: No new complaints Objective vital signs Vital Sign Date Time Temp Pulse Resp B/P (MAP) Pulse Ox O2 Delivery O2 Flow Rate FiO2 06/05/24 09:00 97.6 88 17 128/48 (74) 98 97.6 06/05/24 08:00 Room Air* 0 21 Total Intake and Output 06/04/24 06/04/24 06/05/24 15:00 23:00 07:00 Intake Total 150 ml 680 ml 300 ml Output Total 900 ml 1450 ml Balance 150 ml -220 ml -1150 ml medications Current Medications Medications Dose Ordered Sig/Eagle Route Start Time Stop Time Status Last Admin Dose Admin Sodium Chloride 10 ml Q8HR IV 05/27/24 06:00 06/05/24 05:09 10 ML Acetaminophen 650 mg Q6HP PRN PO 05/26/24 22:30 06/02/24 08:38 650 MG Enoxaparin Sodium 30 mg DAILY SC 05/27/24 10:00 06/05/24 10:10 30 MG Lorazepam 1 mg ONCE PRN IV 05/26/24 23:15 06/04/24 20:59 1 MG Aspirin 81 mg DAILY PO 05/27/24 10:00 06/05/24 10:08 81 MG Diagnostic Test (Pha) 1 strip ACHS 05/27/24 07:00 06/05/24 11:32 1 STRIP Insulin Human Regular ACHS SC 05/27/24 07:00 06/05/24 11:29 3 UNITS Dextrose 50 ml UD PRN IV 05/27/24 00:00 Melatonin 5 mg HS PO 05/28/24 22:00 06/03/24 21:54 5 MG Cefepime HCl 50 ml @ 12.5 mls/hr DAILY IV 06/01/24 10:00 06/05/24 10:09 12.5 MLS/HR Metronidazole 100 ml @ 100 mls/hr Q8HR IV 05/31/24 14:00 06/05/24 06:00 100 MLS/HR Enteral Nutritional Formula 240 ml BIDWM PO 06/01/24 12:00 06/05/24 08:00 240 ML Examination Gen: Appears stated age. In no acute distress. Pulm: Diminished bilaterally CV: RRR Ext: +1 BLE edema Neuro: Alert and oriented laboratory and microbiology Laboratory Tests 06/04/24 10:31 06/03/24 07:19 Test 06/04/24 10:31 Range/Units Serum Glucose 225 #H 74-106 mg/dL Microbiology Date/Time Source Procedure Growth Status 05/28/24 03:00 Nose MRSA Screen - Final Complete 05/27/24 14:25 Blood Blood Culture - Final NO GROWTH AFTER 5 DAYS OF INCUBATION. Complete Labs and/or images reviewed: Labs reviewed by me Problem List/Assessment/Plan Problem List/Assessment/Plan Acute kidney injury multifactorial. hemodynamic + vancotoxicity--no baseline available- continues to slowly improve CKD unspecified sepsis due to OM of foot s/p Surgery foot amputation 05/28/24 Covid PNA CKF EF 25% BKA Anemia REC Serial chemistry panels Will continue to follow Follow up as outpatient once discharged Plan discussed with: Patient Dietary Evaluation Review Comments: 1. Consider adding CCHO 60g, Renal restriction to diet 2. Consider adding Garrett BID (180kcal, 5g pro) for wound healing Expected Outcomes/Goals: 1. Pt will consume >7% of estimated needs in 3-5 days NICHOLE PIPER Jun 05, 2024 13:49
[2024-06-05 15:57] LABS: Alanine Aminotransferase 18 U/L (7-40); Albumin 2.8 g/dL (3.2-4.8); Alkaline Phosphatase 69 U/L (46-116); Anion Gap 8 (5-15); Aspartate Aminotransferase 21 U/L (13-40); BUN/Creatinine Ratio 24.9 (10.0-20.0); Bilirubin, Total 0.2 mg/dL (0.2-1.0); Blood Urea Nitrogen 53 mg/dL (9-23); Calcium 8.3 mg/dL (8.7-10.4); Carbon Dioxide 22 mmol/L (20-31); Chloride 111 mmol/L (98-107); Glucose 212 mg/dL (74-106); Potassium 4.6 mmol/L (3.5-5.1); Sodium 141 mmol/L (136-145); Total Protein 5.5 g/dL (5.7-8.2)
--- NOTE | 2024-06-05 18:11 | DVHPNRES ---
Progress Note Date Seen: Jun 05, 2024 Resident Creating Document: MADISON CAMPUZANO RESIDENT Has the PT tested + for MRSA If YES, has PT been informed?: No Medical Necessity Reason Pt with a Central, PICC or Fol: Yes The following are medically ne: Lujan Catheter Reason for lujan catheter: Strict I&O Subjective Review of Systems Mr. Yoni Tuttle, a 78-year-old male with a past medical history of congestive heart failure, diabetes, CKD, recurrent urinary tract infections, and right BKA, presented s with a chief complaint of metabolic encephalopathy. The patient was transferred from [facility] where he was in an altered mental state. Patient was sent to the [facility] on 05/18/2024 for altered mental status and was found to have osteomyelitis of the left foot. Thus was transferred to [facility] on 05/26/24, likely for care of his left foot osteomyelitis. At presentation here, he was not talking and was A&O X1. He also was sating at low oxygen levels, ranging from 84 to 88. He was placed on 3 L of oxygen. At [facility], patient was managed for acute respiratory failure, COVID pneumonia, metabolic encephalopathy possible aspiration pneumonia and sepsis. He had left transmetatarsal amputation. He has been on antibiotics (cefepime and Flagy). Patient is doing better. He is now AOx4. So far, the patient has received one week of antibiotics. He has 7 more days of antibiotics to take. Patient is stable and ready for discharge. The initial plan was to transfer patient to SNF for the antibiotics and PT. However, patient is adamant about going home with home health. His nephew, Madhu, is the power of assistant professor of psychology. But the patient is fully awake and oriented and made the decision to be sent home. Patient's wishes were communicated with the rn field case manager. UPDATE: 06/05/2024 Patient is seen and examined today. He is doing well and has no new complaint. He is on room air and amputation site is not draining. Patient was supposed to have been discharged home yesterday with home health; however, the rn field case manager could not find a home home health contract with his area. Therefore, patient could not go. The plan now is for the patient to go to SNF to complete his antibiotics and PT. However, he is refusing to go to SNF Constitutional: Denies fever no chills no feeling of malaise. AX0 4 HEENT: Denies headache, ear pain, ear discharges, conjunctivitis, nasal discharge throat pain Cardiovascular: Denies chest pain, palpitation, orthopnea, PND, or pedal edema Respiratory: Denies shortness of breath, cough cough, sputum production, hemoptysis, GI: Denies abdominal pain, nausea, vomiting, diarrhea, hematemesis, hematochezia, : Denies frequency, urgency, hematuria, Endocrine: Denies unintentional weight gain or weight loss, feeling of hot flashes, Hayden: Denies easy bruising, bleeding disorders, epistaxis Musculoskeletal: Denies joint pains, muscle aches, amputee bilateral Psych: No evidence of depression, jade, suicidal ideation Objective vital signs Vital Sign Date Time Temp Pulse Resp B/P (MAP) Pulse Ox O2 Delivery O2 Flow Rate FiO2 06/05/24 17:00 98.1 88 17 133/47 (75) 99 98.1 06/05/24 08:00 Room Air* 0 21 Total Intake and Output 06/04/24 06/04/24 06/05/24 15:00 23:00 07:00 Intake Total 150 ml 680 ml 300 ml Output Total 900 ml 1450 ml Balance 150 ml -220 ml -1150 ml medications Current Medications Medications Dose Ordered Sig/Eagle Route Start Time Stop Time Status Last Admin Dose Admin Sodium Chloride 10 ml Q8HR IV 05/27/24 06:00 06/05/24 14:00 10 ML Acetaminophen 650 mg Q6HP PRN PO 05/26/24 22:30 06/05/24 17:21 650 MG Enoxaparin Sodium 30 mg DAILY SC 05/27/24 10:00 06/05/24 10:10 30 MG Lorazepam 1 mg ONCE PRN IV 05/26/24 23:15 06/04/24 20:59 1 MG Aspirin 81 mg DAILY PO 05/27/24 10:00 06/05/24 10:08 81 MG Diagnostic Test (Pha) 1 strip ACHS 05/27/24 07:00 06/05/24 17:18 1 STRIP Insulin Human Regular ACHS SC 05/27/24 07:00 06/05/24 17:20 4 UNITS Dextrose 50 ml UD PRN IV 05/27/24 00:00 Melatonin 5 mg HS PO 05/28/24 22:00 06/03/24 21:54 5 MG Cefepime HCl 50 ml @ 12.5 mls/hr DAILY IV 06/01/24 10:00 06/05/24 10:09 12.5 MLS/HR Metronidazole 100 ml @ 100 mls/hr Q8HR IV 05/31/24 14:00 06/05/24 14:31 100 MLS/HR Enteral Nutritional Formula 240 ml BIDWM PO 06/01/24 12:00 06/05/24 08:00 240 ML Examination General examination- Not in acute distress HEENT: PEERLA, no acute nasal discharge Chest: S1-S2 audible, rate and rhythm regular, no murmur Lung: CTAB, no wheeze or rhonchi Abdomen: Nondistend, BS+, nontenderness, no organomegaly Musculoskeletal: no acute joint swelling or tenderness Lower extremity: left foot amputated, Right leg BKA. Neurological: cranial nerves intact, no acute dysarthria or dysphagia Psychiatry-- Normal mood and affect Skin- no acute rash or purpura laboratory and microbiology Laboratory Tests 06/05/24 15:08 06/03/24 07:19 Test 06/05/24 15:08 Range/Units Serum Glucose 212 H 74-106 mg/dL Microbiology Date/Time Source Procedure Growth Status 05/28/24 03:00 Nose MRSA Screen - Final Complete 05/27/24 14:25 Blood Blood Culture - Final NO GROWTH AFTER 5 DAYS OF INCUBATION. Complete Problem List/Assessment/Plan Problem List/Assessment/Plan Problem List/Assessment/Plan # metabolic vs toxic encephalopathy vs mixed Improving, continue delirium precautions Likely related to underlying infection # Multiple strokes prior CT brain scan # baseline vascular dementia likely worsening in recent times, unknown exact baseline as no reference received. MRI and GABBIE pending, can not be done due to current COVID-19 infection # possible aspiration pneumonia Gram-positive versus Gram-negative On broad-spectrum antibiotics, sputum culture with no growth # COVID-19 infection with viral pneumonia: remdesivir discontinued for worsening renal failure and oral steroid discontinued as patient is currently on room air # Acute hypoxic respiratory failure , likely due to above complicated with congestive heart failure Improving oxygenation with weaning as tolerated to keep the SpO2 of >92%, currently on room air # MARYANA due to VMN # CKD stage undetermined, given longstanding diabetes. No known baseline. Avoid nephrotoxic agents Continue to monitor Nephrology on board BUN rising, check input output closely. Declining urinary function. Follow closure I&O, infection control and hydration to continue. GFR trending up # hyperkalemia, Improved Continue to monitor # uremia BUN in 80s, severely elevated, but trending down nephrology on board # Left foot osteomyelitis with overlying skin and soft tissue infection versus gangrene due to peripheral arterial disease status post TMA by Podiatry on 05/28/24, culture with no growth, Continue cefepime IV and Flagyl PO, # UTI, could be hospital-acquired, from recent hospitalization Continue broad-spectrum antibiotics # Sepsis secondary due to UTI, osteomyelitis and COVID-19 continue antibiotics and held antivirals. Workup otherwise negative. # anemia of chronic disease Likely due to CKD/multifactorial, poor nutrition # Diabetes mellitus well controlled, 6.4 HbA1c patient on diet, target BG 140-180 mg per dL. High-protein diet to continue, multivitamins to help axillary healing, Continue Lantus 12 U # right external carotid artery greater than 70% stenosis Collaterals intact # DVT prophylaxis Prophylactic Lovenox # Diet: soft mechanical diet shared services representative consulted for DC planning to SNF for PT and IV antibiotics cefepime for 8 more days, will also send with flagyl po Goals of care were discussed for 25 minutes. Modified code. DNR with intubation trial Case and plan discussed with Dr. Vazquez Plan discussed with: Patient, Other (patient case coordinator) My Orders My Orders Orders - MADISON CAMPUZANO Procedure Category Date Status Time * Digital Imaging Technician CONS 06/05/24 Transmitted Consult Discharge DISCHARGE 06/05/24 Transmitted 10:36 Comprehensive LAB 06/06/24 Verified Metabolic Panel 04:00 Dietary Evaluation Review Comments: 1. Consider adding CCHO 60g, Renal restriction to diet 2. Consider adding Garrett BID (180kcal, 5g pro) for wound healing Expected Outcomes/Goals: 1. Pt will consume >7% of estimated needs in 3-5 days Date of Service: Jun 05, 2024 Billing Provider: RIA ORNELAS MD Common Visit Codes: [id number] INP/OBS CARE(HIGH) MADISON CAMPUZANO Jun 05, 2024 18:11 RIA ORNELAS MD Jun 06, 2024 09:06
--- NOTE | 2024-06-05 22:00 | DVHPN2 ---
Progress Note - Dictate Date Seen: Jun 05, 2024 Has the PT tested + for MRSA If YES, has PT been informed?: No Medical Necessity Reason Pt with a Central, PICC or Fol: No The following are medically ne: Lujan Catheter Reason for lujan catheter: Strict I&O Subjective Patient seen and examined at bedside. Breathing comfortably on room air. Overnight events reviewed. vital signs Vital Sign Date Time Temp Pulse Resp B/P (MAP) Pulse Ox O2 Delivery O2 Flow Rate FiO2 06/05/24 17:00 98.1 88 17 133/47 (75) 99 98.1 06/05/24 08:00 Room Air* 0 21 Total Intake and Output 06/04/24 06/04/24 06/05/24 15:00 23:00 07:00 Intake Total 150 ml 680 ml 300 ml Output Total 900 ml 1450 ml Balance 150 ml -220 ml -1150 ml medications Current Medications Medications Dose Ordered Sig/Eagle Route Start Time Stop Time Status Last Admin Dose Admin Sodium Chloride 10 ml Q8HR IV 05/27/24 06:00 06/05/24 21:08 10 ML Acetaminophen 650 mg Q6HP PRN PO 05/26/24 22:30 06/05/24 17:21 650 MG Enoxaparin Sodium 30 mg DAILY SC 05/27/24 10:00 06/05/24 10:10 30 MG Lorazepam 1 mg ONCE PRN IV 05/26/24 23:15 06/04/24 20:59 1 MG Aspirin 81 mg DAILY PO 05/27/24 10:00 06/05/24 10:08 81 MG Diagnostic Test (Pha) 1 strip ACHS 05/27/24 07:00 06/05/24 17:18 1 STRIP Insulin Human Regular ACHS SC 05/27/24 07:00 06/05/24 17:20 4 UNITS Dextrose 50 ml UD PRN IV 05/27/24 00:00 Melatonin 5 mg HS PO 05/28/24 22:00 06/05/24 21:07 5 MG Cefepime HCl 50 ml @ 12.5 mls/hr DAILY IV 06/01/24 10:00 06/05/24 10:09 12.5 MLS/HR Metronidazole 100 ml @ 100 mls/hr Q8HR IV 05/31/24 14:00 06/05/24 21:07 100 MLS/HR Enteral Nutritional Formula 240 ml BIDWM PO 06/01/24 12:00 06/05/24 08:00 240 ML objective Gen.: Patient lying in bed in no apparent distress. Breathing on room air. Head: Normocephalic, atraumatic. Eyes: EOMI/PERRLA. Ears: Normal hearing. Normal anatomy. Neck/trachea: Trachea midline, supple. Nose: Normal external anatomy. Mouth: Moist mucous membranes. Chest: Decreased air entry bilaterally. No wheezing or rhonchi. Cardiovascular: Positive S1, positive S2. Regular rate and rhythm. Abdomen: Positive bowel sounds in all 4 quadrants. Soft, non-tender, non- distended. : Deferred. Rectal: Deferred. Skin: Warm, dry. Intact. Extremities: 2+ radial pulses bilaterally. No lower extremity edema. Neuro: Awake, alert, oriented x3. No gross motor or sensory deficits. Cranial nerves II through XII intact. Gait not assessed. laboratory and microbiology Laboratory Tests 06/05/24 15:08 06/03/24 07:19 Test 06/05/24 15:08 Range/Units Serum Glucose 212 H 74-106 mg/dL Assessment/Plan Impression: Acute hypoxic respiratory failure COVID-19 infection Metabolic encephalopathy Sepsis Events: Breathing on room air No respiratory distress. Chemical code. IS. Bronchodilators PRN. Continue antibiotics - cefepime, Flagyl Glucerna for nutritional support Monitor renal function Supportive care. DVT prophylaxis. Disposition per hospitalist. Labs and imaging reviewed. Rest of plan as noted below. Plan: Supplemental oxygen PRN Titrate to keep O2 sats above 92%. Continue antibiotics F/u cultures Incentive spirometry Remdesivir course - DC'd due to renal failure Vitamin supplementation Monitor renal function. Monitor electrolytes. Supplement as necessary. Monitor ins and outs. DVT prophylaxis. Prognosis: Poor given patient's multiple co-morbidities. Rest of plan per hospitalist and other consultants. Thank you Dr. Jennifer Wolf MD, for allowing me to participate in this patient's care. Further recommendations will depend on the patient's clinical course. Please do not hesitate to contact me if you have any questions or concerns. This medical document was created using an electronic medical record system with [employer] dictation system. Although these documentations are being carefully reviewed, there may still be some phonetic and typographical changes. The errors are purely typographical, due to imperfection on the software program, and do not reflect any compromise in the patient's medical care. Dietary Evaluation Review Comments: 1. Consider adding CCHO 60g, Renal restriction to diet 2. Consider adding Garrett BID (180kcal, 5g pro) for wound healing Expected Outcomes/Goals: 1. Pt will consume >7% of estimated needs in 3-5 days Plan discussed with: Patient, Other (VAMSI Bourgeois) VANDANA TRACEY MD Jun 05, 2024 22:00
[2024-06-06] VITALS (7 sets, daily range): BP systolic 104–126; BP diastolic 39–47; PULSE 83–91; RESP 17–19; TEMP 97.7–97.9; O2SAT 97–100
[2024-06-06 05:53] LABS: Alanine Aminotransferase 20 U/L (7-40); Alkaline Phosphatase 74 U/L (46-116); Anion Gap 8 (5-15); BUN/Creatinine Ratio 25.5 (10.0-20.0); Blood Urea Nitrogen 52 mg/dL (9-23); Calcium 8.6 mg/dL (8.7-10.4); Carbon Dioxide 21 mmol/L (20-31); Chloride 111 mmol/L (98-107); Glucose 99 mg/dL (74-106); Potassium 4.6 mmol/L (3.5-5.1); Sodium 140 mmol/L (136-145)
[2024-06-06 05:55] LABS: Aspartate Aminotransferase 31 U/L (13-40); Bilirubin, Total 0.2 mg/dL (0.2-1.0)
[2024-06-06 05:56] LABS: Total Protein 5.9 g/dL (5.7-8.2)
--- NOTE | 2024-06-06 10:42 | DVHPNRES ---
Progress Note Date Seen: Jun 06, 2024 Resident Creating Document: AIDA MORILLO RESIDENT Has the PT tested + for MRSA If YES, has PT been informed?: No Medical Necessity Reason Pt with a Central, PICC or Fol: No The following are medically ne: Lujan Catheter Reason for lujan catheter: Strict I&O Subjective Review of Systems Patient was seen and examined. He is doing well and has no new complaint. He is on room air and amputation site is mildly draining serosanguineous fluid. Patient has a accepted to be discharged to SNF for IV antibiotics, wound care and physical therapy. Objective vital signs Vital Sign Date Time Temp Pulse Resp B/P (MAP) Pulse Ox O2 Delivery O2 Flow Rate FiO2 06/06/24 09:00 97.9 91 17 114/40 (64) 100 97.9 06/06/24 08:00 Room Air* 0 21 Total Intake and Output 06/05/24 06/05/24 06/06/24 15:00 23:00 07:00 Intake Total 50 ml 875 ml 400 ml Output Total 1000 ml 550 ml Balance 50 ml -125 ml -150 ml medications Current Medications Medications Dose Ordered Sig/Eagle Route Start Time Stop Time Status Last Admin Dose Admin Sodium Chloride 10 ml Q8HR IV 05/27/24 06:00 06/06/24 05:36 10 ML Acetaminophen 650 mg Q6HP PRN PO 05/26/24 22:30 06/06/24 09:45 650 MG Enoxaparin Sodium 30 mg DAILY SC 05/27/24 10:00 06/06/24 09:46 30 MG Lorazepam 1 mg ONCE PRN IV 05/26/24 23:15 06/04/24 20:59 1 MG Aspirin 81 mg DAILY PO 05/27/24 10:00 06/06/24 09:44 81 MG Diagnostic Test (Pha) 1 strip ACHS 05/27/24 07:00 06/06/24 06:06 1 STRIP Insulin Human Regular ACHS SC 05/27/24 07:00 06/05/24 22:03 4 UNITS Dextrose 50 ml UD PRN IV 05/27/24 00:00 Melatonin 5 mg HS PO 05/28/24 22:00 06/05/24 21:07 5 MG Cefepime HCl 50 ml @ 12.5 mls/hr DAILY IV 06/01/24 10:00 06/06/24 09:44 12.5 MLS/HR Metronidazole 100 ml @ 100 mls/hr Q8HR IV 05/31/24 14:00 06/06/24 05:35 100 MLS/HR Enteral Nutritional Formula 240 ml BIDWM PO 06/01/24 12:00 06/06/24 08:00 240 ML Examination General examination- Not in acute distress HEENT: PEERLA, no acute nasal discharge Chest: S1-S2 audible, rate and rhythm regular, no murmur Lung: CTAB, no wheeze or rhonchi Abdomen: Nondistend, BS+, nontenderness, no organomegaly Musculoskeletal: no acute joint swelling or tenderness Lower extremity: left foot amputated, Right leg BKA. Neurological: cranial nerves intact, no acute dysarthria or dysphagia Psychiatry-- Normal mood and affect Skin- no acute rash or purpura laboratory and microbiology Laboratory Tests 06/06/24 05:17 06/03/24 07:19 Test 06/06/24 05:17 Range/Units Serum Glucose 99 # 74-106 mg/dL Microbiology Date/Time Source Procedure Growth Status 05/28/24 03:00 Nose MRSA Screen - Final Complete 05/27/24 14:25 Blood Blood Culture - Final NO GROWTH AFTER 5 DAYS OF INCUBATION. Complete Labs and/or images reviewed: Labs reviewed by me, Image(s) reviewed by me Problem List/Assessment/Plan Problem List/Assessment/Plan # Metabolic vs toxic encephalopathy vs mixed Improving, continue delirium precautions Likely related to underlying infection # Multiple strokes prior CT brain scan # baseline vascular dementia likely worsening in recent times, unknown exact baseline as no reference received. MRI and GABBIE pending, can not be done due to current COVID-19 infection # possible aspiration pneumonia Gram-positive versus Gram-negative On broad-spectrum antibiotics, sputum culture with no growth # COVID-19 infection with viral pneumonia: remdesivir discontinued for worsening renal failure and oral steroid discontinued as patient is currently on room air # Acute hypoxic respiratory failure , likely due to above complicated with congestive heart failure Improving oxygenation with weaning as tolerated to keep the SpO2 of >92%, currently on room air # MARYANA due to VMN # CKD stage undetermined, given longstanding diabetes. No known baseline. Avoid nephrotoxic agents Continue to monitor Nephrology on board BUN trending down, check input output closely. Follow closure I&O, infection control and hydration to continue. GFR trending up # hyperkalemia, Improved Continue to monitor # uremia BUN in 80s, severely elevated, but trending down nephrology on board # Left foot osteomyelitis with overlying skin and soft tissue infection versus gangrene due to peripheral arterial disease status post TMA by Podiatry on 05/28/24, culture with no growth, Continue cefepime IV and Flagyl PO # UTI, could be hospital-acquired, from recent hospitalization Continue broad-spectrum antibiotics # Sepsis secondary due to UTI, osteomyelitis and COVID-19 continue antibiotics and held antivirals. Workup otherwise negative. # anemia of chronic disease Likely due to CKD/multifactorial, poor nutrition # Diabetes mellitus well controlled, 6.4 HbA1c patient on diet, target BG 140-180 mg per dL. High-protein diet to continue, multivitamins to help axillary healing, Continue Lantus 12 U # right external carotid artery greater than 70% stenosis Collaterals intact # DVT prophylaxis Prophylactic Lovenox # Diet: soft mechanical diet surgical services coordinator consulted for DC planning to SNF for PT and IV antibiotics cefepime for 5 more days, will also send with flagyl po Patient has accepted to go to SNF today Goals of care were discussed for 32 minutes. Modified code. DNR with intubation trial Case and plan discussed with Dr. Vazquez Plan discussed with: Patient, Other (RN) Dietary Evaluation Review Comments: 1. Consider adding CCHO 60g, Renal restriction to diet 2. Consider adding Garrett BID (180kcal, 5g pro) for wound healing Expected Outcomes/Goals: 1. Pt will consume >7% of estimated needs in 3-5 days Date of Service: Jun 06, 2024 Billing Provider: RIA ORNELAS MD Common Visit Codes: [id number] INP/OBS CARE(HIGH) AIDA MORILLO RESIDENT Jun 06, 2024 10:41 RIA ORNELAS MD Jun 14, 2024 00:32
--- NOTE | 2024-06-06 14:38 | DVHPN2 ---
Progress Note Date Seen: Jun 06, 2024 Has the PT tested + for MRSA If YES, has PT been informed?: No Medical Necessity Reason Pt with a Central, PICC or Fol: No The following are medically ne: Lujan Catheter Reason for lujan catheter: Strict I&O Subjective Review of Systems Awaiting discharge to SNF. Creat continues to downtrend, GFR continues to improve. Patient reports: No new complaints Objective vital signs Vital Sign Date Time Temp Pulse Resp B/P (MAP) Pulse Ox O2 Delivery O2 Flow Rate FiO2 06/06/24 13:00 97.9 91 17 104/39 (60) 99 97.9 06/06/24 08:00 Room Air* 0 21 Total Intake and Output 06/05/24 06/05/24 06/06/24 15:00 23:00 07:00 Intake Total 50 ml 875 ml 400 ml Output Total 1000 ml 550 ml Balance 50 ml -125 ml -150 ml medications Current Medications Medications Dose Ordered Sig/Eagle Route Start Time Stop Time Status Last Admin Dose Admin Sodium Chloride 10 ml Q8HR IV 05/27/24 06:00 06/06/24 14:19 Acetaminophen 650 mg Q6HP PRN PO 05/26/24 22:30 06/06/24 09:45 Enoxaparin Sodium 30 mg DAILY SC 05/27/24 10:00 06/06/24 09:46 Lorazepam 1 mg ONCE PRN IV 05/26/24 23:15 06/04/24 20:59 Aspirin 81 mg DAILY PO 05/27/24 10:00 06/06/24 09:44 Diagnostic Test (Pha) 1 strip ACHS 05/27/24 07:00 06/06/24 11:34 Insulin Human Regular ACHS SC 05/27/24 07:00 06/06/24 11:34 Dextrose 50 ml UD PRN IV 05/27/24 00:00 Melatonin 5 mg HS PO 05/28/24 22:00 06/05/24 21:07 Cefepime HCl 50 ml @ 12.5 mls/hr DAILY IV 06/01/24 10:00 06/06/24 09:44 Metronidazole 100 ml @ 100 mls/hr Q8HR IV 05/31/24 14:00 06/06/24 14:18 Enteral Nutritional Formula 240 ml BIDWM PO 06/01/24 12:00 06/06/24 08:00 Examination Gen: Appears stated age. In no acute distress. Pulm: Diminished bilaterally CV: RRR Ext:No edema Neuro: Alert and oriented laboratory and microbiology Laboratory Tests 06/06/24 05:17 06/03/24 07:19 Test 06/06/24 05:17 Range/Units Serum Glucose 99 # 74-106 mg/dL Microbiology Date/Time Source Procedure Growth Status 05/28/24 03:00 Nose MRSA Screen - Final Complete 05/27/24 14:25 Blood Blood Culture - Final NO GROWTH AFTER 5 DAYS OF INCUBATION. Complete Labs and/or images reviewed: Labs reviewed by me Problem List/Assessment/Plan Problem List/Assessment/Plan Acute kidney injury multifactorial. hemodynamic + vancotoxicity--no baseline available- continues to slowly improve. Continued downtrend of creat now 2.04, and GFR 33 CKD unspecified sepsis due to OM of foot s/p Surgery foot amputation 05/28/24 Covid PNA CKF EF 25% BKA Anemia REC Continue serial chemistry panels strict I&O's Will continue to follow Follow up as outpatient once discharged Plan discussed with: Patient, Other Dietary Evaluation Review Comments: 1. Consider adding CCHO 60g, Renal restriction to diet 2. Consider adding Garrett BID (180kcal, 5g pro) for wound healing Expected Outcomes/Goals: 1. Pt will consume >7% of estimated needs in 3-5 days NICHOLE PIPER Jun 06, 2024 14:38
--- NOTE | 2024-06-06 22:44 | DVHPN2 ---
Progress Note - Dictate Date Seen: Jun 06, 2024 Has the PT tested + for MRSA If YES, has PT been informed?: No Medical Necessity Reason Pt with a Central, PICC or Fol: No The following are medically ne: Lujan Catheter Reason for lujan catheter: Strict I&O Subjective Patient seen and examined at bedside. Breathing comfortably on room air. Overnight events reviewed. vital signs Vital Sign Date Time Temp Pulse Resp B/P (MAP) Pulse Ox O2 Delivery O2 Flow Rate FiO2 06/06/24 21:00 97.8 89 18 118/46 (70) 98 97.8 06/06/24 08:00 Room Air* 0 21 Total Intake and Output 06/05/24 06/05/24 06/06/24 15:00 23:00 07:00 Intake Total 50 ml 875 ml 400 ml Output Total 1000 ml 550 ml Balance 50 ml -125 ml -150 ml medications Current Medications Medications Dose Ordered Sig/Eagle Route Start Time Stop Time Status Last Admin Dose Admin Sodium Chloride 10 ml Q8HR IV 05/27/24 06:00 06/06/24 21:44 10 ML Acetaminophen 650 mg Q6HP PRN PO 05/26/24 22:30 06/06/24 09:45 650 MG Enoxaparin Sodium 30 mg DAILY SC 05/27/24 10:00 06/06/24 09:46 30 MG Lorazepam 1 mg ONCE PRN IV 05/26/24 23:15 06/04/24 20:59 1 MG Aspirin 81 mg DAILY PO 05/27/24 10:00 06/06/24 09:44 81 MG Diagnostic Test (Pha) 1 strip ACHS 05/27/24 07:00 06/06/24 21:53 1 STRIP Insulin Human Regular ACHS SC 05/27/24 07:00 06/06/24 21:56 3 UNITS Dextrose 50 ml UD PRN IV 05/27/24 00:00 Melatonin 5 mg HS PO 05/28/24 22:00 06/06/24 21:44 5 MG Cefepime HCl 50 ml @ 12.5 mls/hr DAILY IV 06/01/24 10:00 06/06/24 09:44 12.5 MLS/HR Metronidazole 100 ml @ 100 mls/hr Q8HR IV 05/31/24 14:00 06/06/24 21:44 100 MLS/HR Enteral Nutritional Formula 240 ml BIDWM PO 06/01/24 12:00 06/06/24 17:47 240 ML objective Gen.: Patient lying in bed in no apparent distress. Breathing on room air. Head: Normocephalic, atraumatic. Eyes: EOMI/PERRLA. Ears: Normal hearing. Normal anatomy. Neck/trachea: Trachea midline, supple. Nose: Normal external anatomy. Mouth: Moist mucous membranes. Chest: Decreased air entry bilaterally. No wheezing or rhonchi. Cardiovascular: Positive S1, positive S2. Regular rate and rhythm. Abdomen: Positive bowel sounds in all 4 quadrants. Soft, non-tender, non- distended. : Deferred. Rectal: Deferred. Skin: Warm, dry. Intact. Extremities: 2+ radial pulses bilaterally. No lower extremity edema. Neuro: Awake, alert, oriented x3. No gross motor or sensory deficits. Cranial nerves II through XII intact. Gait not assessed. laboratory and microbiology Laboratory Tests 06/06/24 05:17 06/03/24 07:19 Test 06/06/24 05:17 Range/Units Serum Glucose 99 # 74-106 mg/dL Assessment/Plan Impression: Acute hypoxic respiratory failure COVID-19 infection Metabolic encephalopathy Sepsis Events: Breathing on room air No respiratory distress. Chemical code. IS. Bronchodilators PRN. Continue antibiotics - cefepime, Flagyl Glucerna for nutritional support Monitor renal function Supportive care. DVT prophylaxis. Disposition per hospitalist. Labs and imaging reviewed. Rest of plan as noted below. Plan: Supplemental oxygen PRN Titrate to keep O2 sats above 92%. Continue antibiotics F/u cultures Incentive spirometry Remdesivir course - DC'd due to renal failure Vitamin supplementation Monitor renal function. Monitor electrolytes. Supplement as necessary. Monitor ins and outs. DVT prophylaxis. Prognosis: Poor given patient's multiple co-morbidities. Rest of plan per hospitalist and other consultants. Thank you Dr. Jennifer Wolf MD, for allowing me to participate in this patient's care. Further recommendations will depend on the patient's clinical course. Please do not hesitate to contact me if you have any questions or concerns. This medical document was created using an electronic medical record system with [employer] dictation system. Although these documentations are being carefully reviewed, there may still be some phonetic and typographical changes. The errors are purely typographical, due to imperfection on the software program, and do not reflect any compromise in the patient's medical care. Dietary Evaluation Review Comments: 1. Consider adding CCHO 60g, Renal restriction to diet 2. Consider adding Garrett BID (180kcal, 5g pro) for wound healing Expected Outcomes/Goals: 1. Pt will consume >7% of estimated needs in 3-5 days Plan discussed with: Patient, Other (VAMSI Silvestre) VANDANA TRACEY MD Jun 06, 2024 22:44
[2024-06-07] VITALS (9 sets, daily range): BP systolic 100–126; BP diastolic 38–65; PULSE 83–113; RESP 16–18; TEMP 97.8–98.3; O2SAT 94–100
[2024-06-07 06:15] LABS: Anion Gap 8 (5-15); Carbon Dioxide 20 mmol/L (20-31); Chloride 112 mmol/L (98-107); Potassium 4.7 mmol/L (3.5-5.1); Sodium 140 mmol/L (136-145)
[2024-06-07 06:16] LABS: Calcium 8.5 mg/dL (8.7-10.4)
[2024-06-07 06:21] LABS: BUN/Creatinine Ratio 22.5 (10.0-20.0); Blood Urea Nitrogen 48 mg/dL (9-23); Glucose 102 mg/dL (74-106)
--- NOTE | 2024-06-07 10:15 | DVHPN2 ---
Progress Note Date Seen: Jun 07, 2024 Has the PT tested + for MRSA If YES, has PT been informed?: No Medical Necessity Reason Pt with a Central, PICC or Fol: No The following are medically ne: Lujan Catheter Reason for lujan catheter: Strict I&O Subjective Other Systems: Patient seen and examined by myself in f/u today Objective vital signs Vital Sign Date Time Temp Pulse Resp B/P (MAP) Pulse Ox O2 Delivery O2 Flow Rate FiO2 06/07/24 05:00 97.8 92 18 104/38 (60) 99 97.8 06/06/24 20:00 Room Air* 0 21 Total Intake and Output 06/06/24 06/06/24 06/07/24 15:00 23:00 07:00 Intake Total 857 ml 1160 ml 900 ml Output Total 1350 ml 1500 ml Balance 857 ml -190 ml -600 ml medications Current Medications Medications Dose Ordered Sig/Eagle Route Start Time Stop Time Status Last Admin Dose Admin Sodium Chloride 10 ml Q8HR IV 05/27/24 06:00 06/07/24 05:07 10 ML Acetaminophen 650 mg Q6HP PRN PO 05/26/24 22:30 06/06/24 09:45 650 MG Enoxaparin Sodium 30 mg DAILY SC 05/27/24 10:00 06/07/24 09:54 30 MG Lorazepam 1 mg ONCE PRN IV 05/26/24 23:15 06/04/24 20:59 1 MG Aspirin 81 mg DAILY PO 05/27/24 10:00 06/07/24 09:54 81 MG Diagnostic Test (Pha) 1 strip ACHS 05/27/24 07:00 06/07/24 06:28 1 STRIP Insulin Human Regular ACHS SC 05/27/24 07:00 06/06/24 21:56 3 UNITS Dextrose 50 ml UD PRN IV 05/27/24 00:00 Melatonin 5 mg HS PO 05/28/24 22:00 06/06/24 21:44 5 MG Cefepime HCl 50 ml @ 12.5 mls/hr DAILY IV 06/01/24 10:00 06/07/24 09:53 12.5 MLS/HR Metronidazole 100 ml @ 100 mls/hr Q8HR IV 05/31/24 14:00 06/07/24 05:10 100 MLS/HR Enteral Nutritional Formula 240 ml BIDWM PO 06/01/24 12:00 06/07/24 08:49 240 ML Examination: LUNGS:Normal, CVS:Normal, MSK:Normal laboratory and microbiology Laboratory Tests 06/07/24 05:01 06/03/24 07:19 Test 06/07/24 05:01 Range/Units Serum Glucose 102 74-106 mg/dL Microbiology Date/Time Source Procedure Growth Status 05/28/24 03:00 Nose MRSA Screen - Final Complete 05/27/24 14:25 Blood Blood Culture - Final NO GROWTH AFTER 5 DAYS OF INCUBATION. Complete Problem List/Assessment/Plan Problem List/Assessment/Plan Acute kidney injury multifactorial. hemodynamic + vancotoxicity--no baseline available Ckd unspecified sepsis due to OM of foot s/p Surgery foot amputation 05/28/24 Covid PNA CKF EF 25% BKA Anemia Recommendations Kidney function is improving Increased urine output Check urine protein and electrolytes Check kidney ultrasound We will continue to follow up Plan discussed with: Patient Dietary Evaluation Review Comments: 1. Consider adding CCHO 60g, Renal restriction to diet 2. Consider adding Garrett BID (180kcal, 5g pro) for wound healing Expected Outcomes/Goals: 1. Pt will consume >7% of estimated needs in 3-5 days MIGNON SCHULTZ MD Jun 07, 2024 10:15
[2024-06-07 11:08] LABS: Magnesium 1.6 mg/dL (1.6-2.6)
[2024-06-07 11:10] LABS: Phosphorus 3.9 mg/dL (2.4-5.1)
--- NOTE | 2024-06-07 11:51 | DVH ---
INDICATION: MARYANA TECHNIQUE: Multiple real-time sonographic images of the kidneys and bladder were obtained. COMPARISON: None FINDINGS: RIGHT kidney measures 9.6 cm in length. Increased echogenicity of the right kidney. No stones or fo susana lesions are identified. There is right-sided hydronephrosis. LEFT kidney measures 9.7 cm in length. Increased echogenicity of the left kidney. No stones or focal lesions are identified. There is left-sided hydronephrosis. No large intraluminal masses are seen in the bladder. The urinary bladder wall appears thickened. Wilson catheter balloon appears inflated inferiorly to the bladder, possibly within the prostatic uret hra. IMPRESSION: 1. Bilateral hydronephrosis. 2. Wilson catheter appears malpositioned, likely inflated within the prostatic urethra. Recommend rep ositioning within the urinary bladder. 3. Urinary bladder wall thickening. Could be related to UTI/ cystitis versus chronic obstruction. 4. Increased echogenicity of the bilateral kidneys, nonspecific, but most commonly seen in the settin g of chronic kidney disease. HS:Y
--- NOTE | 2024-06-07 18:10 | DVHINCON2 ---
Date of service: Jun 07, 2024 Referring Physician hospitalist Reason for Consultation lujan placement History of Present Illness History Source: Patient, RN Notes, MD Notes Exam Limitations: Clinical condition HPI 78 yo pleasantly confused male admitted for respiratory distress was noted to have malposition of lujan catheter. Home Meds Unable to Obtain Active Prescriptions or Reported Meds Past Medical History Patient Family History: Patient reports no known family medical history. H&P Exam Vital Signs Vital Signs Date Time Temp Pulse Resp B/P (MAP) Pulse Ox O2 Delivery O2 Flow Rate FiO2 06/07/24 17:16 97.8 103 18 110/61 (77) 99 97.8 06/07/24 15:38 Room Air* 0 21 General Appeara: Well developed, Well nourished, Normal Appearance, Thin Neuro/Mental St: Alert, Oriented Appearance: Memory impairment, Impaired recent memory Eye contact/ Speech: Cooperative, Good eye contact, Normal speech Skin Exam: Normal inspection, Normal color, Warm/dry Labs/Xrays [place] [address] Ph: [phone] DIAGNOSTIC IMAGING Diagnostic Imaging Report : [id number] Signed PATIENT: TARIQ AWAN ACCT: [id number] UNIT: [id number] : 1945 LOC: CENTRAL ROOM / BED: 0207 / A AGE / SEX: 78 / M ADM STATUS: ADM IN SERVICE 1021 ORDERING PHYSICIAN: MIGNON SCHULTZ MD PROCEDURE(s): KIDUS - KIDNEY REASON: MARYANA ORDER NUMBER(s): [id number], ACCESSION NUMBER(s): [id number] INDICATION: MARYANA TECHNIQUE: Multiple real-time sonographic images of the kidneys and bladder were obtained. COMPARISON: None FINDINGS: RIGHT kidney measures 9.6 cm in length. Increased echogenicity of the right kidney. No stones or focal lesions are identified. There is right-sided hydronephrosis. LEFT kidney measures 9.7 cm in length. Increased echogenicity of the left kidney. No stones or focal lesions are identified. There is left-sided hydronephrosis. No large intraluminal masses are seen in the bladder. The urinary bladder wall appears thickened. Lujan catheter balloon appears inflated inferiorly to the bladder, possibly within the prostatic urethra. IMPRESSION: 1. Bilateral hydronephrosis. 2. Lujan catheter appears malpositioned, likely inflated within the prostatic urethra. Recommend repositioning within the urinary bladder. 3. Urinary bladder wall thickening. Could be related to UTI/ cystitis versus chronic obstruction. 4. Increased echogenicity of the bilateral kidneys, nonspecific, but most commonly seen in the setting of chronic kidney disease. HS:Y ATED BY: MARIVEL GALARZA DO DICTATED DATE/TIME: 06/07/24 1148 SIGNED BY: MARIVEL GALARZA DO SIGNED DATE/TIME: 06/07/24 1148 CC: Labs Test 06/07/24 11:34 06/07/24 11:12 06/07/24 05:01 06/06/24 05:17 Range/Units POC Glucose 238 H 70-106 mg/dl Sodium Level 140 136-145 mmol/L Potassium Level 4.7 3.5-5.1 mmol/L Chloride Level 112 H 98-107 mmol/L Carbon Dioxide Level 20 20-31 mmol/L Anion Gap 8 5-15 Blood Urea Nitrogen 48 H 9-23 mg/dL Creatinine 2.13 H 0.700-1.30 mg/dL Glomerular Filtration Rate Calc 31 >90 mL/min BUN/Creatinine Ratio 22.5 H 10.0-20.0 Serum Glucose 102 74-106 mg/dL Calcium Level 8.5 L 8.7-10.4 mg/dL Phosphorus Level 3.9 2.4-5.1 mg/dL Magnesium Level 1.6 1.6-2.6 mg/dL Total Bilirubin 0.2 0.2-1.0 mg/dL Aspartate Amino Transferase (AST) 31 13-40 U/L Alanine Aminotransferase (ALT) 20 7-40 U/L Alkaline Phosphatase 74 46-116 U/L Total Protein 5.9 5.7-8.2 g/dL Albumin 3.0 L 3.2-4.8 g/dL Test 06/03/24 07:19 06/01/24 05:07 05/31/24 09:00 05/30/24 04:42 Range/Units White Blood Count 10.3 # 4.4-10.8 10^3/uL Red Blood Count 3.13 L 4.5-5.90 10^6/uL Hemoglobin 9.4 L 13.5-17.5 g/dL Hematocrit 28.5 L 41.0-53.0 % Mean Corpuscular Volume 91.0 80.0-100.0 fL Mean Corpuscular Hemoglobin 29.9 28.0-32.0 pg Mean Corpuscular Hemoglobin Concent 32.9 32.0-36.0 g/dL Red Cell Distribution Width 15.2 H 11.8-14.3 % Platelet Count 161 140-450 10^3/uL Mean Platelet Volume 11.7 H 6.9-10.8 fL Neutrophils (%) (Auto) 81.0 H 37.0-80.0 % Lymphocytes (%) (Auto) 10.6 10.0-50.0 % Monocytes (%) (Auto) 7.6 0.0-12.0 % Eosinophils (%) (Auto) 0.8 0.0-7.0 % Basophils (%) (Auto) 0.0 0.0-2.0 % Neutrophils # (Auto) 8.3 1.6-8.6 10 ^3/uL Lymphocytes # (Auto) 1.1 0.4-5.4 10 ^3/uL Monocytes # (Auto) 0.8 0-1.3 10 ^3/uL Eosinophils # (Auto) 0.1 0-0.8 10 ^3/uL Basophils # (Auto) 0 0-0.2 10 ^3/uL Nucleated Red Blood Cells 0.0 % C-Reactive Protein High Sensitivity 3.79 H <1.0 mg/dL Random Vancomycin Level 14.3 H 5-10 ug/mL SARS-CoV-2 Antigen (Rapid) Positive *A NEGATIVE Vancomycin Level Trough 21.9 H 5-10 ug/mL Test 05/28/24 08:30 05/27/24 23:40 05/27/24 14:45 05/27/24 14:37 Range/Units Prothrombin Time 11.9 H 9.3-11.8 sec Prothrombin Time INR 1.13 0.9-1.15 Activated Partial Thromboplast Time 39.0 H 24.5-34.5 SEC Influenza Type A Antigen Negative Negative Influenza Type B Antigen Negative Negative Blood Gas Specimen Type Arterial Blood Gas Sample Site Left brachial Blood Gas Patient Temperature 37.0 Arterial Blood Date Drawn [id number] Arterial Blood pH 7.360 7.350-7.450 Arterial Blood Partial Pressure CO2 22.0 L 35.0-48.0 mmHg Arterial Blood Partial Pressure O2 55.2 L 83.0-108.0 mmHg Arterial Blood HCO3 12.1 L 21.0-28.0 mmol/L Arterial Blood Oxygen Saturation 86.3 L 94.0-98.0 % Arterial Blood Base Excess -11.8 L -2.0-3.0 mmol/L Arterial Blood Oxyhemoglobin 85.4 L 94.0-98.0 % Arterial Blood Carboxyhemoglobin 0.5 0.5-1.5 % Arterial Blood Methemoglobin 0.5 0.0-1.5 % Lion Test N/a Blood Gas Total Hemoglobin 9.00 L 13.5-17.5 g/dL Blood Gas Liter Flow 4.00 Blood Gas Modality Nasal cannula FiO2 % 36.0 Lactic Acid Level 1.2 0.4-2.0 mmol/L Test 05/27/24 05:00 05/26/24 23:15 Range/Units Urine Color Light-red Yellow Urine Clarity Ex.turbid Clear Urine pH 5.5 5.0-9.0 Urine Specific [place] 1.013 1.001-1.035 Urine Protein 2+ H Negative Urine Ketones Trace Negative Urine Blood 3+ H Negative /uL Urine Nitrite Negative Negative Urine Bilirubin Negative Negative Urine Urobilinogen Normal Negative mg/dL Urine Leukocyte Esterase 3+ Negative /uL Urine RBC 2720 0 - 3 /hpf Urine WBC 306 0 - 3 /hpf Urine Squamous Epithelial Cells None seen <5 /hpf Urine Bacteria None seen None Seen /hpf Urine Glucose 1+ H Normal mg/dL Urine Opiates Screen Neg NEGATIVE Urine Fentanyl Screen Neg NEGATIVE Urine Barbiturates Screen Neg NEGATIVE Urine Phencyclidine Screen Neg NEGATIVE Urine Amphetamines Screen Neg NEGATIVE Urine Benzodiazepines Screen Neg NEGATIVE Urine Cocaine Screen Neg NEGATIVE Urine Cannabinoids Screen Neg NEGATIVE Hemoglobin A1c 6.4 H <5.7 % A1C B-Type Natriuretic Peptide 1347.78 0-100 pg/mL Triglycerides Level 129 < 150 mg/dL Cholesterol Level 102 < 200 mg/dL LDL Cholesterol 46 < 100 mg/dL HDL Cholesterol 32 L 40-59 mg/dL Vitamin B12 Level 1314 H 211-911 pg/mL Folic Acid 28.30 >5.38 ng/mL Thyroid Stimulating Hormone (TSH) 1.70 0.55-4.78 uIU/mL Free Thyroxine (T4) Calculated 1.20 0.89-1.76 ng/dL Microbiology Date/Time Source Procedure Growth Status 05/28/24 03:00 Nose MRSA Screen - Final Complete 05/27/24 14:25 Blood Blood Culture - Final NO GROWTH AFTER 5 DAYS OF INCUBATION. Complete Assessment/Plan Problem List: (1) Lujan catheter problem Plan monthly exchanges Plan discussed with: Patient, Other ADELAIDE ROBERT NP Jun 07, 2024 18:10
--- NOTE | 2024-06-07 18:51 | DVHPNRES ---
Progress Note Date Seen: Jun 07, 2024 Resident Creating Document: AIDA MORILLO RESIDENT Has the PT tested + for MRSA If YES, has PT been informed?: No Medical Necessity Reason Pt with a Central, PICC or Fol: No The following are medically ne: Lujan Catheter Reason for lujan catheter: Strict I&O Subjective Review of Systems Patient was seen and examined. He is doing well and has no new complaint. He is on room air and amputation site is mildly draining serosanguineous fluid. Patient has accepted to be discharged to SNF for IV antibiotics, wound care and physical therapy. Renal US today revealed malposition of lujan catheter, we tried to remove or push it in, however, it was unsuccessful, we consulted urology and they successfully exchanged the catheter Objective vital signs Vital Sign Date Time Temp Pulse Resp B/P (MAP) Pulse Ox O2 Delivery O2 Flow Rate FiO2 06/07/24 17:16 97.8 103 18 110/61 (77) 99 97.8 06/07/24 15:38 Room Air* 0 21 Total Intake and Output 06/06/24 06/06/24 06/07/24 15:00 23:00 07:00 Intake Total 857 ml 1160 ml 900 ml Output Total 1350 ml 1500 ml Balance 857 ml -190 ml -600 ml medications Current Medications Medications Dose Ordered Sig/Eagle Route Start Time Stop Time Status Last Admin Dose Admin Sodium Chloride 10 ml Q8HR IV 05/27/24 06:00 06/07/24 15:20 10 ML Acetaminophen 650 mg Q6HP PRN PO 05/26/24 22:30 06/06/24 09:45 650 MG Lorazepam 1 mg ONCE PRN IV 05/26/24 23:15 06/04/24 20:59 1 MG Aspirin 81 mg DAILY PO 05/27/24 10:00 06/07/24 09:54 81 MG Diagnostic Test (Pha) 1 strip ACHS 05/27/24 07:00 06/07/24 17:00 1 STRIP Insulin Human Regular ACHS SC 05/27/24 07:00 06/07/24 17:31 3 UNITS Dextrose 50 ml UD PRN IV 05/27/24 00:00 Melatonin 5 mg HS PO 05/28/24 22:00 06/06/24 21:44 5 MG Cefepime HCl 50 ml @ 12.5 mls/hr DAILY IV 06/01/24 10:00 06/07/24 09:53 12.5 MLS/HR Metronidazole 100 ml @ 100 mls/hr Q8HR IV 05/31/24 14:00 06/07/24 14:40 100 MLS/HR Enteral Nutritional Formula 240 ml BIDWM PO 06/01/24 12:00 06/07/24 17:42 240 ML Examination General examination- Not in acute distress HEENT: PEERLA, no acute nasal discharge Chest: S1-S2 audible, rate and rhythm regular, no murmur Lung: CTAB, no wheeze or rhonchi Abdomen: Nondistend, BS+, nontenderness, no organomegaly Musculoskeletal: no acute joint swelling or tenderness Lower extremity: left foot amputated, Right leg BKA. Neurological: cranial nerves intact, no acute dysarthria or dysphagia Psychiatry-- Normal mood and affect Skin- no acute rash or purpura laboratory and microbiology Laboratory Tests 06/07/24 05:01 06/03/24 07:19 Test 06/07/24 05:01 Range/Units Serum Glucose 102 74-106 mg/dL Microbiology Date/Time Source Procedure Growth Status 05/28/24 03:00 Nose MRSA Screen - Final Complete 05/27/24 14:25 Blood Blood Culture - Final NO GROWTH AFTER 5 DAYS OF INCUBATION. Complete Labs and/or images reviewed: Labs reviewed by me, Image(s) reviewed by me Problem List/Assessment/Plan Problem List/Assessment/Plan # Metabolic vs toxic encephalopathy vs mixed Improving, continue delirium precautions Likely related to underlying infection # Multiple strokes prior CT brain scan # baseline vascular dementia likely worsening in recent times, unknown exact baseline as no reference received. MRI and GABBIE pending, can not be done due to current COVID-19 infection # possible aspiration pneumonia Gram-positive versus Gram-negative On broad-spectrum antibiotics, sputum culture with no growth # COVID-19 infection with viral pneumonia: remdesivir discontinued for worsening renal failure and oral steroid discontinued as patient is currently on room air # Acute hypoxic respiratory failure , likely due to above complicated with congestive heart failure Improving oxygenation with weaning as tolerated to keep the SpO2 of >92%, currently on room air # MARYANA due to VMN # CKD stage undetermined, given longstanding diabetes. No known baseline. Avoid nephrotoxic agents Continue to monitor Nephrology on board BUN trending down, check input output closely. Follow closure I&O, infection control and hydration to continue. GFR trending up # hyperkalemia, Improved Continue to monitor # uremia BUN in 80s, severely elevated, but trending down nephrology on board # Left foot osteomyelitis with overlying skin and soft tissue infection versus gangrene due to peripheral arterial disease status post TMA by Podiatry on 05/28/24, culture with no growth, Continue cefepime IV and Flagyl PO # UTI, could be hospital-acquired, from recent hospitalization Continue broad-spectrum antibiotics exchanged lujan on 06/07/24 # Sepsis secondary due to UTI, osteomyelitis and COVID-19 continue antibiotics and held antivirals. Workup otherwise negative. # anemia of chronic disease Likely due to CKD/multifactorial, poor nutrition # Diabetes mellitus well controlled, 6.4 HbA1c patient on diet, target BG 140-180 mg per dL. High-protein diet to continue, multivitamins to help axillary healing, Continue Lantus 12 U # right external carotid artery greater than 70% stenosis Collaterals intact # DVT prophylaxis Prophylactic Lovenox # Diet: soft mechanical diet adoption services manager consulted for DC planning to SNF for PT and IV antibiotics cefepime for 5 more days, will also send with flagyl po Patient has accepted to go to SNF today, pending bed availability Goals of care were discussed for 32 minutes. Modified code. DNR with intubation trial Case and plan discussed with Dr. Vazquez Plan discussed with: Patient, Other (RN) My Orders My Orders Orders - AIDA MORILLO Procedure Category Date Status Time Parathyroid Hormone LAB 06/07/24 In Process Intact 10:38 Ok To Change Lujan ORDERS 06/07/24 Transmitted 13:07 * Urology Consult CONS 06/07/24 Transmitted 17:03 Basic Metabolic Panel LAB 06/08/24 Verified 04:00 Dietary Evaluation Review Comments: 1. Consider adding CCHO 60g, Renal restriction to diet 2. Consider adding Garrett BID (180kcal, 5g pro) for wound healing Expected Outcomes/Goals: 1. Pt will consume >7% of estimated needs in 3-5 days Date of Service: Jun 07, 2024 Billing Provider: RIA ORNELAS MD Common Visit Codes: 14869-[id number] INP/OBS CARE(HIGH) AIDA MORILLO RESIDENT Jun 07, 2024 18:51 RIA ORNELAS MD Jun 14, 2024 00:22
--- NOTE | 2024-06-07 21:08 | DVHPN2 ---
Progress Note - Dictate Date Seen: Jun 07, 2024 Has the PT tested + for MRSA If YES, has PT been informed?: No Medical Necessity Reason Pt with a Central, PICC or Fol: No The following are medically ne: Lujan Catheter Reason for lujan catheter: Strict I&O Subjective Patient seen and examined at bedside. Breathing comfortably on room air. Overnight events reviewed. vital signs Vital Sign Date Time Temp Pulse Resp B/P (MAP) Pulse Ox O2 Delivery O2 Flow Rate FiO2 06/07/24 17:16 97.8 103 18 110/61 (77) 99 97.8 06/07/24 15:38 Room Air* 0 21 Total Intake and Output 06/06/24 06/06/24 06/07/24 15:00 23:00 07:00 Intake Total 857 ml 1160 ml 900 ml Output Total 1350 ml 1500 ml Balance 857 ml -190 ml -600 ml medications Current Medications Medications Dose Ordered Sig/Eagle Route Start Time Stop Time Status Last Admin Dose Admin Sodium Chloride 10 ml Q8HR IV 05/27/24 06:00 06/07/24 15:20 10 ML Acetaminophen 650 mg Q6HP PRN PO 05/26/24 22:30 06/06/24 09:45 650 MG Lorazepam 1 mg ONCE PRN IV 05/26/24 23:15 06/04/24 20:59 1 MG Aspirin 81 mg DAILY PO 05/27/24 10:00 06/07/24 09:54 81 MG Diagnostic Test (Pha) 1 strip ACHS 05/27/24 07:00 06/07/24 17:00 1 STRIP Insulin Human Regular ACHS SC 05/27/24 07:00 06/07/24 17:31 3 UNITS Dextrose 50 ml UD PRN IV 05/27/24 00:00 Melatonin 5 mg HS PO 05/28/24 22:00 06/06/24 21:44 5 MG Cefepime HCl 50 ml @ 12.5 mls/hr DAILY IV 06/01/24 10:00 06/07/24 09:53 12.5 MLS/HR Metronidazole 100 ml @ 100 mls/hr Q8HR IV 05/31/24 14:00 06/07/24 14:40 100 MLS/HR Enteral Nutritional Formula 240 ml BIDWM PO 06/01/24 12:00 06/07/24 17:42 240 ML objective Gen.: Patient lying in bed in no apparent distress. Breathing on room air. Head: Normocephalic, atraumatic. Eyes: EOMI/PERRLA. Ears: Normal hearing. Normal anatomy. Neck/trachea: Trachea midline, supple. Nose: Normal external anatomy. Mouth: Moist mucous membranes. Chest: Decreased air entry bilaterally. No wheezing or rhonchi. Cardiovascular: Positive S1, positive S2. Regular rate and rhythm. Abdomen: Positive bowel sounds in all 4 quadrants. Soft, non-tender, non- distended. : Deferred. Rectal: Deferred. Skin: Warm, dry. Intact. Extremities: 2+ radial pulses bilaterally. No lower extremity edema. Neuro: Awake, alert, oriented x3. No gross motor or sensory deficits. Cranial nerves II through XII intact. Gait not assessed. laboratory and microbiology Laboratory Tests 06/07/24 05:01 06/03/24 07:19 Test 06/07/24 05:01 Range/Units Serum Glucose 102 74-106 mg/dL Assessment/Plan Impression: Acute hypoxic respiratory failure COVID-19 infection Metabolic encephalopathy Sepsis Events: Breathing on room air No respiratory distress. Chemical code. Note, Lujan not in place on ultrasound consulted to assess recommendations appreciated. IS. Bronchodilators PRN. Continue antibiotics - cefepime, Flagyl Monitor renal function Supportive care. DVT prophylaxis. Patient is stable for discharge from the pulmonary standpoint once Lujan issue is addressed. Disposition per hospitalist. Labs and imaging reviewed. Rest of plan as noted below. Plan: Supplemental oxygen PRN Titrate to keep O2 sats above 92%. Continue antibiotics F/u cultures Incentive spirometry Remdesivir course - DC'd due to renal failure Vitamin supplementation Monitor renal function. Monitor electrolytes. Supplement as necessary. Monitor ins and outs. DVT prophylaxis. Prognosis: Poor given patient's multiple co-morbidities. Rest of plan per hospitalist and other consultants. Thank you Dr. Jennifer Wolf MD, for allowing me to participate in this patient's care. Further recommendations will depend on the patient's clinical course. Please do not hesitate to contact me if you have any questions or concerns. This medical document was created using an electronic medical record system with [employer] dictation system. Although these documentations are being carefully reviewed, there may still be some phonetic and typographical changes. The errors are purely typographical, due to imperfection on the software program, and do not reflect any compromise in the patient's medical care. Dietary Evaluation Review Comments: 1. Consider adding CCHO 60g, Renal restriction to diet 2. Consider adding Garrett BID (180kcal, 5g pro) for wound healing Expected Outcomes/Goals: 1. Pt will consume >7% of estimated needs in 3-5 days Plan discussed with: Patient, Other (VAMSI Lamb) VANDANA TRACEY MD Jun 07, 2024 21:08
[2024-06-08] VITALS (7 sets, daily range): BP systolic 105–119; BP diastolic 39–64; PULSE 91–101; RESP 17–20; TEMP 97.7–98.2; O2SAT 97–100
[2024-06-08 01:35] LABS: Protein, Urine 87.3 mg/dL (1-14)
[2024-06-08 01:37] LABS: Creatinine, Urine 38.24 mg/dL (30.0-125.0); Urine Protein/Creatinine Ratio 2.28
[2024-06-08 06:21] LABS: Chloride 111 mmol/L (98-107); Potassium 4.7 mmol/L (3.5-5.1); Sodium 139 mmol/L (136-145)
[2024-06-08 06:22] LABS: Anion Gap 10 (5-15); Calcium 8.5 mg/dL (8.7-10.4); Carbon Dioxide 18 mmol/L (20-31)
[2024-06-08 06:27] LABS: BUN/Creatinine Ratio 28.2 (10.0-20.0); Glucose 154 mg/dL (74-106)
[2024-06-08 06:31] LABS: Blood Urea Nitrogen 68 mg/dL (9-23)
[2024-06-08] MEDS: SODIUM CHLORIDE 0.9% 1,000 ML IV ONE (09:00)
--- NOTE | 2024-06-08 12:27 | DVHPN2 ---
Progress Note Date Seen: Jun 08, 2024 Has the PT tested + for MRSA If YES, has PT been informed?: No Medical Necessity Reason Pt with a Central, PICC or Fol: No The following are medically ne: Lujan Catheter Reason for lujan catheter: Strict I&O Subjective Patient reports: No new complaints Other Systems: Patient seen and examined by myself on follow-up today Objective vital signs Vital Sign Date Time Temp Pulse Resp B/P (MAP) Pulse Ox O2 Delivery O2 Flow Rate FiO2 06/08/24 09:00 97.7 100 18 113/54 (73) 97 97.7 06/07/24 20:00 Room Air* 0 21 Total Intake and Output 06/07/24 06/07/24 06/08/24 15:00 23:00 07:00 Intake Total 50 ml 1000 ml 900 ml Output Total 1250 ml 1100 ml Balance 50 ml -250 ml -200 ml medications Current Medications Medications Dose Ordered Sig/Eagle Route Start Time Stop Time Status Last Admin Dose Admin Sodium Chloride 10 ml Q8HR IV 05/27/24 06:00 06/08/24 05:20 10 ML Acetaminophen 650 mg Q6HP PRN PO 05/26/24 22:30 06/06/24 09:45 650 MG Lorazepam 1 mg ONCE PRN IV 05/26/24 23:15 06/04/24 20:59 1 MG Aspirin 81 mg DAILY PO 05/27/24 10:00 06/08/24 09:39 81 MG Diagnostic Test (Pha) 1 strip ACHS 05/27/24 07:00 06/08/24 11:29 1 STRIP Insulin Human Regular ACHS SC 05/27/24 07:00 06/08/24 11:42 2 UNITS Dextrose 50 ml UD PRN IV 05/27/24 00:00 Melatonin 5 mg HS PO 05/28/24 22:00 06/07/24 21:32 5 MG Cefepime HCl 50 ml @ 12.5 mls/hr DAILY IV 06/01/24 10:00 06/08/24 09:38 12.5 MLS/HR Metronidazole 100 ml @ 100 mls/hr Q8HR IV 05/31/24 14:00 06/08/24 05:20 100 MLS/HR Enteral Nutritional Formula 240 ml BIDWM PO 06/01/24 12:00 11/26/24 08:32 240 ML Examination: LUNGS:Normal, CVS:Normal, MSK:Normal laboratory and microbiology Laboratory Tests 06/08/24 05:08 06/03/24 07:19 Test 06/08/24 05:08 Range/Units Serum Glucose 154 H 74-106 mg/dL Microbiology Date/Time Source Procedure Growth Status 05/28/24 03:00 Nose MRSA Screen - Final Complete 05/27/24 14:25 Blood Blood Culture - Final NO GROWTH AFTER 5 DAYS OF INCUBATION. Complete Problem List/Assessment/Plan Problem List/Assessment/Plan Acute kidney injury multifactorial. hemodynamic + vancotoxicity, FeNa > 2% Urinary retention Bilateral hydro nephrosis Ckd unspecified sepsis due to OM of foot s/p Surgery foot amputation 05/28/24 Covid PNA CKF EF 25% BKA Metabolic acidosis Recommendations Kidney function slightly worsened today Reposition Lujan catheter Strict I&Os IVF half NS with 50 mEq sodium bicarb at 100 cc/hour kidney ultrasound reported bilateral hydronephrosis with malposition Lujan catheter We will continue to follow up Plan discussed with: Patient Dietary Evaluation Review Comments: 1. Consider adding CCHO 60g, Renal restriction to diet 2. Consider adding Garrett BID (180kcal, 5g pro) for wound healing Expected Outcomes/Goals: 1. Pt will consume >7% of estimated needs in 3-5 days MIGNON SCHULTZ MD Jun 08, 2024 12:27
[2024-06-08] MEDS: SODIUM BICARB 50mEq/50ml Vial 50 ML in SOD CHL 0.45% 1,000 ML IV SCH (15:10)
--- NOTE | 2024-06-08 17:21 | DVHPNRES ---
Progress Note Date Seen: Jun 08, 2024 Resident Creating Document: MADISON CAMPUZANO RESIDENT Has the PT tested + for MRSA If YES, has PT been informed?: No Medical Necessity Reason Pt with a Central, PICC or Fol: No The following are medically ne: Lujan Catheter Reason for lujan catheter: Strict I&O Subjective Review of Systems Patient was seen and examined today. He has no new complaints he is doing well and ready to go. He is on room air and amputation site is mildly draining serosanguineous fluid. [facility] He will be going there this evening by 7pm. He will be there to complete his IV antibiotics and PT. Of note, the patient was discharge on 06/04/2024 home with home health. However, patient could not go home because per his insurance ([facility]) there is no contract with home health in [facility]. With further communication, patient has finally agreed to got to [facility], [facility] to complete his antibiotics and physical therapy. On 06/07/24, there a resistance with lujan's catheter. Renal US revealed malposition of lujan catheter, we tried to remove or push it in, however, it was unsuccessful, we consulted urology and they successfully exchanged the catheter. Brief Hx & Hospital Course: Mr. Yoni Tuttle, a 78-year-old male with a past medical history of congestive heart failure, diabetes, CKD, recurrent urinary tract infections, and right BKA, presented s with a chief complaint of metabolic encephalopathy. The patient was transferred from [facility] where he was in an altered mental state. Patient was sent to [facility] on 05/18/2024 for altered mental status and was found to have osteomyelitis of the left foot. Thus was transferred to [facility] on 05/26/24,for further management. On arrival to [facility], patient was AO X1. Oxygen saturation was between 84 to 88. He was placed on 3 L of oxygen. He was managed for acute respiratory failure, COVID pneumonia, metabolic encephalopathy, possible aspiration pneumonia and sepsis. He later had left transmetatarsal amputation. Patient has been on antibiotics since amputation and he is almost done. As of today patient is doing well he has no new complaint. Patient is cleared of any isolation per the Infectious Disease group. He is going to SNF today to complete his antibiotics and also for physical therapy. Patient has 2 June 11 2 complete both antibiotics. All this information has been communicated with the nurse. Objective vital signs Vital Sign Date Time Temp Pulse Resp B/P (MAP) Pulse Ox O2 Delivery O2 Flow Rate FiO2 06/08/24 13:00 98.0 98 18 105/55 (72) 99 98.0 06/08/24 08:00 Room Air* 0 21 Total Intake and Output 06/07/24 06/07/24 06/08/24 15:00 23:00 07:00 Intake Total 50 ml 1000 ml 900 ml Output Total 1250 ml 1100 ml Balance 50 ml -250 ml -200 ml medications Current Medications Medications Dose Ordered Sig/Eagle Route Start Time Stop Time Status Last Admin Dose Admin Sodium Chloride 10 ml Q8HR IV 05/27/24 06:00 06/08/24 14:34 10 ML Acetaminophen 650 mg Q6HP PRN PO 05/26/24 22:30 06/06/24 09:45 650 MG Lorazepam 1 mg ONCE PRN IV 05/26/24 23:15 06/04/24 20:59 1 MG Aspirin 81 mg DAILY PO 05/27/24 10:00 06/08/24 09:39 81 MG Diagnostic Test (Pha) 1 strip ACHS 05/27/24 07:00 06/08/24 11:29 1 STRIP Insulin Human Regular ACHS SC 05/27/24 07:00 06/08/24 11:42 2 UNITS Dextrose 50 ml UD PRN IV 05/27/24 00:00 Melatonin 5 mg HS PO 05/28/24 22:00 06/07/24 21:32 5 MG Cefepime HCl 50 ml @ 12.5 mls/hr DAILY IV 06/01/24 10:00 06/08/24 09:38 12.5 MLS/HR Metronidazole 100 ml @ 100 mls/hr Q8HR IV 05/31/24 14:00 06/08/24 14:26 100 MLS/HR Enteral Nutritional Formula 240 ml BIDWM PO 06/01/24 12:00 06/08/24 08:32 240 ML Sodium Bicarbonate 50 ml/ Sodium Chloride 1,050 ml @ 100 mls/hr [id number] IV 06/08/24 12:30 06/08/24 15:10 100 MLS/HR Examination General examination- Not in acute distress HEENT: PEERLA, no acute nasal discharge Chest: S1-S2 audible, rate and rhythm regular, no murmur Lung: CTAB, no wheeze or rhonchi Abdomen: Nondistend, BS+, nontenderness, no organomegaly Musculoskeletal: no acute joint swelling or tenderness Lower extremity: left foot amputated, Right leg BKA. Neurological: cranial nerves intact, no acute dysarthria or dysphagia Psychiatry-- Normal mood and affect Skin- no acute rash or purpura laboratory and microbiology Laboratory Tests 06/08/24 05:08 06/03/24 07:19 Test 06/08/24 05:08 Range/Units Serum Glucose 154 H 74-106 mg/dL Microbiology Date/Time Source Procedure Growth Status 05/28/24 03:00 Nose MRSA Screen - Final Complete 05/27/24 14:25 Blood Blood Culture - Final NO GROWTH AFTER 5 DAYS OF INCUBATION. Complete Problem List/Assessment/Plan Problem List/Assessment/Plan Problem List/Assessment/Plan # metabolic vs toxic encephalopathy vs mixed Improving, continue delirium precautions Likely related to underlying infection # Multiple strokes prior CT brain scan # baseline vascular dementia likely worsening in recent times, unknown exact baseline as no reference received. MRI and GABBIE pending, can not be done due to current COVID-19 infection # possible aspiration pneumonia Gram-positive versus Gram-negative On broad-spectrum antibiotics, sputum culture with no growth # COVID-19 infection with viral pneumonia: remdesivir discontinued for worsening renal failure and oral steroid discontinued as patient is currently on room air # Acute hypoxic respiratory failure , likely due to above complicated with congestive heart failure Improving oxygenation with weaning as tolerated to keep the SpO2 of >92%, currently on room air # MARYANA due to VMN # CKD stage undetermined, given longstanding diabetes. No known baseline. Avoid nephrotoxic agents Continue to monitor Nephrology on board BUN rising, check input output closely. Declining urinary function. Follow closure I&O, infection control and hydration to continue. GFR trending up # hyperkalemia, Improved Continue to monitor # uremia BUN in 80s, severely elevated, but trending down nephrology on board # Left foot osteomyelitis with overlying skin and soft tissue infection versus gangrene due to peripheral arterial disease status post TMA by Podiatry on 05/28/24, culture with no growth, Continue cefepime IV and Flagyl PO, # UTI, could be hospital-acquired, from recent hospitalization Continue broad-spectrum antibiotics # Sepsis secondary due to UTI, osteomyelitis and COVID-19 continue antibiotics and held antivirals. Workup otherwise negative. # anemia of chronic disease Likely due to CKD/multifactorial, poor nutrition # Diabetes mellitus well controlled, 6.4 HbA1c patient on diet, target BG 140-180 mg per dL. High-protein diet to continue, multivitamins to help axillary healing, Continue Lantus 12 U # right external carotid artery greater than 70% stenosis Collaterals intact # DVT prophylaxis Prophylactic Lovenox # Diet: soft mechanical diet security services manager consulted for DC planning to SNF for PT and IV antibiotics cefepime for 8 more days, will also send with flagyl po Goals of care were discussed for 25 minutes. Modified code. DNR with intubation trial Case and plan discussed with Dr. Vazquez Plan discussed with: Patient, Other (Nurse) My Orders My Orders Orders - MADISON CAMPUZANO Procedure Category Date Status Time Discharge DISCHARGE 06/08/24 Transmitted 16:37 Dietary Evaluation Review Comments: 1. Consider adding CCHO 60g, Renal restriction to diet 2. Consider adding Garrett BID (180kcal, 5g pro) for wound healing Expected Outcomes/Goals: 1. Pt will consume >7% of estimated needs in 3-5 days Date of Service: Jun 08, 2024 Billing Provider: RIA ORNELAS MD Common Visit Codes: [id number] INP/OBS CARE(HIGH) MADISON CAMPUZANO Jun 08, 2024 17:21 RIA ORNELAS MD Jun 14, 2024 00:12
--- NOTE | 2024-06-08 18:47 | DVHPN2 ---
Progress Note - Dictate Date Seen: Jun 08, 2024 Has the PT tested + for MRSA If YES, has PT been informed?: No Medical Necessity Reason Pt with a Central, PICC or Fol: Yes The following are medically ne: Lujan Catheter Reason for lujan catheter: Strict I&O Subjective Patient seen and examined at bedside. Breathing comfortably on room air. Overnight events reviewed. vital signs Vital Sign Date Time Temp Pulse Resp B/P (MAP) Pulse Ox O2 Delivery O2 Flow Rate FiO2 06/08/24 17:45 98.2 99 20 97 06/08/24 17:00 115/56 (75) 06/08/24 08:00 Room Air* 0 21 Total Intake and Output 06/07/24 06/07/24 06/08/24 15:00 23:00 07:00 Intake Total 50 ml 1000 ml 900 ml Output Total 1250 ml 1100 ml Balance 50 ml -250 ml -200 ml objective Gen.: Patient lying in bed in no apparent distress. Breathing on room air. Head: Normocephalic, atraumatic. Eyes: EOMI/PERRLA. Ears: Normal hearing. Normal anatomy. Neck/trachea: Trachea midline, supple. Nose: Normal external anatomy. Mouth: Moist mucous membranes. Chest: Decreased air entry bilaterally. No wheezing or rhonchi. Cardiovascular: Positive S1, positive S2. Regular rate and rhythm. Abdomen: Positive bowel sounds in all 4 quadrants. Soft, non-tender, non- distended. : Deferred. Rectal: Deferred. Skin: Warm, dry. Intact. Extremities: 2+ radial pulses bilaterally. No lower extremity edema. Neuro: Awake, alert, oriented x3. No gross motor or sensory deficits. Cranial nerves II through XII intact. Gait not assessed. laboratory and microbiology Laboratory Tests 06/08/24 05:08 06/03/24 07:19 Test 06/08/24 05:08 Range/Units Serum Glucose 154 H 74-106 mg/dL Assessment/Plan Impression: Acute hypoxic respiratory failure COVID-19 infection Metabolic encephalopathy Sepsis Events: Breathing on room air No respiratory distress. Chemical code. S/p Lujan catheter exchange by Urology. IS. Bronchodilators PRN. Continue antibiotics - cefepime, Flagyl Monitor renal function Supportive care. DVT prophylaxis. Patient is stable for discharge from the pulmonary standpoint. [facility] Disposition per hospitalist. Labs and imaging reviewed. Rest of plan as noted below. Plan: Supplemental oxygen PRN Titrate to keep O2 sats above 92%. Continue antibiotics F/u cultures Incentive spirometry Remdesivir course - DC'd due to renal failure Vitamin supplementation Monitor renal function. Monitor electrolytes. Supplement as necessary. Monitor ins and outs. DVT prophylaxis. Prognosis: Poor given patient's multiple co-morbidities. Rest of plan per hospitalist and other consultants. Thank you Dr. Jennifer Wolf MD, for allowing me to participate in this patient's care. Further recommendations will depend on the patient's clinical course. Please do not hesitate to contact me if you have any questions or concerns. This medical document was created using an electronic medical record system with [employer] dictation system. Although these documentations are being carefully reviewed, there may still be some phonetic and typographical changes. The errors are purely typographical, due to imperfection on the software program, and do not reflect any compromise in the patient's medical care. Dietary Evaluation Review Comments: 1. Consider adding CCHO 60g, Renal restriction to diet 2. Consider adding Garrett BID (180kcal, 5g pro) for wound healing Expected Outcomes/Goals: 1. Pt will consume >7% of estimated needs in 3-5 days Plan discussed with: Patient, Other (VAMSI Lamb) VANDANA TRACEY MD Jun 08, 2024 18:47
--- NOTE | 2024-06-22 12:23 | DVHOP2 ---
Operative Report - 2 Report Details Date: 05/28/24 Preop Diagnosis: 1. Left foot osteomyelitis 2. Left foot abscess 3. Left foot diabetic ulcer Postop Diagnosis: Metabolic encephalopathy Osteomyeiltis Possible aspiration pneumonia Gram-positive versus Gram-negative MARYANA Surgeon: Garett Redding MD Anesthesiologist: See anesthesia Anesthesia: General Consent: The patient was informed of the risks and benefits of the procedure. These include but are not limited to complications of anesthesia, postoperative infection, incomplete relief of symptoms, recurrence of symptoms, damage to blood vessels, nerves and tendons, deep venous thrombosis, pulmonary embolism and possible need for repeat surgery in the future. Complications: None Estimated Blood Loss: Minimal Fluids: See anesthesia Findings: Significant necrosis Indications for Surgery: Worsening left foot wound Name of Procedure Performed 1. Left foot transmetatarsal amputation Procedure Details Procedure Details: PRE-PROCEDURE INFORMATION: In the pre-op holding area, the extremity to be operated on was clearly marked and the patient verified correct laterality of the marking. The patient was transferred to the OR table and placed in a supine position. A timeout was performed in which identification of the correct patient, procedure, location, and materials was done. The left foot and leg were prepped and draped in normal sterile fashion. DESCRIPTION OF PROCEDURE: Attention was directed to the left forefoot where an incision was made at a level of the metatarsals such that this incision allowed adequate coverage of the remaining metatarsal bones for closure while still allowing for resection of the infected bone. This incision was deepened to the level of the bone and utilizing sharp dissection, the distal aspects of the metatarsals were removed after a sagittal saw was used to perform the osteotomy of the metatarsals in a manner that allowed for the maintenance of a parabola- shape of the metatarsals. It was clear after resection of the bone that the remaining bone left intact was viable and appeared to have no signs of osteomyelitis or other infection. Utilizing a rongeur and other instrumentation, all devitalized soft tissue was removed from the area and a bone rasp was used to smooth the remaining surfaces so as to leave no sharp edges at the end of the bones. The infected bone that had been amputated was sent for culture and pathology.The wound was irrigated with normal saline using cysto tubing. A dry sterile dressing was placed on the surgical extremity. The patient was placed in a postop shoe POSTOPERATIVE INFORMATION: The patient tolerated the above noted procedure and anesthesia well and was transferred to the PACU with vital signs stable, and vascular status intact with capillary refill intact to all digits. Patient will return to the floor for continued IV antibiotics. Patient will need possible other procedure but we will see how responds to the amputation of the infected foot. Condition Good Disposition [facility] GARETT REDDING DPM Jun 22, 2024 12:23
== END 2024-06-08 18:35 | DRG 616 ==
LOC: UNDOADMIN 19:21 → OVERFLOW 19:21 → CENTRAL 19:21 → ICU CENTRL 05-28 02:02 → DOU IN ICU 05-28 04:41 → TELE-EAST 06-02 01:41 → CENTRAL 06-02 11:56
PROVIDERS: ADMIT Student in an Organized Health Care Education/Training Program; ATTEND Student in an Organized Health Care Education/Training Program
PROC: 0Y6N0Z9 Detachment at Left Foot, Partial 1st Ray, Open Approach (ICD-10-PCS; 2024-05-28)
PROC: 0Y6N0ZB Detachment at Left Foot, Partial 2nd Ray, Open Approach (ICD-10-PCS; 2024-05-28)
PROC: 0Y6N0ZC Detachment at Left Foot, Partial 3rd Ray, Open Approach (ICD-10-PCS; 2024-05-28)
PROC: 0Y6N0ZD Detachment at Left Foot, Partial 4th Ray, Open Approach (ICD-10-PCS; 2024-05-28)
PROC: 0Y6N0ZF Detachment at Left Foot, Partial 5th Ray, Open Approach (ICD-10-PCS; 2024-05-28)
PROC: XW033E5 Introduction of Remdesivir Anti-infective into Peripheral Vein, Percutaneous Approach, New Technology Group 5 (ICD-10-PCS; principal; 2024-05-28 11:20)
PROC: 05HD33Z Insertion of Infusion Device into Right Cephalic Vein, Percutaneous Approach (ICD-10-PCS; 2024-06-02)
PROC: B54MZZA Ultrasonography of Right Upper Extremity Veins, Guidance (ICD-10-PCS; 2024-06-02)
DX: E11.69 Type 2 diabetes mellitus with other specified complication (principal); J12.82 Pneumonia due to coronavirus disease 2019; U07.1 COVID-19; J15.69 Pneumonia due to other Gram-negative bacteria; J96.01 Acute respiratory failure with hypoxia; J69.0 Pneumonitis due to inhalation of food and vomit; J15.9 Unspecified bacterial pneumonia; L02.612 Cutaneous abscess of left foot; M86.8X7 Other osteomyelitis, ankle and foot; E11.52 Type 2 diabetes mellitus with diabetic peripheral angiopathy with gangrene; N13.6 Pyonephrosis; E87.20 Acidosis, unspecified; N17.0 Acute kidney failure with tubular necrosis; N18.9 Chronic kidney disease, unspecified; I50.9 Heart failure, unspecified; Z66 Do not resuscitate; D63.8 Anemia in other chronic diseases classified elsewhere; E11.22 Type 2 diabetes mellitus with diabetic chronic kidney disease; I65.21 Occlusion and stenosis of right carotid artery; I25.10 Atherosclerotic heart disease of native coronary artery without angina pectoris; J06.9 Acute upper respiratory infection, unspecified; T38.0X5A Adverse effect of glucocorticoids and synthetic analogues, initial encounter; E11.622 Type 2 diabetes mellitus with other skin ulcer; E87.5 Hyperkalemia; F01.50 Vascular dementia, unspecified severity, without behavioral disturbance, psychotic disturbance, mood disturbance, and anxiety; Z89.422 Acquired absence of other left toe(s); Z89.511 Acquired absence of right leg below knee; Z79.82 Long term (current) use of aspirin; Z79.899 Other long term (current) drug therapy
CPT/HCPCS: 36415; 36600; 70450; 71045; 73700; 76775; 80048; 80053; 80061; 80202; 80307; 81001; 82306; 82570; 82607; 82746; 82805; 82962; 83036; 83605; 83735; 83880; 83970; 84100; 84132; 84156; 84300; 84439; 84443; 85025; 85610; 85730; 86141; 86850; 86900; 86901; 87040; 87081; 87205; 87426; 87804; 92610; 93886; 93926; 97110; 97163; 97530; G0378; J1815; J2003; J2185; J2250; J2405; J2704; J3490